=== PATIENT | female | born 1975 | race Hispanic/Latino ===

== ENCOUNTER 2017-04-26 21:08 | Emergency (ER) | payer OTHER ==
[~2017-04-26] VITALS: Ht 162.6 cm; Wt 88.5 kg
[~2017-04-26 21:08] MED LIST: AUGMENTIN 875-1 EACH PO; BENTYL20 MG PO; BUTRANS1 EAC1 TOP; CEFUROXIME500 MG; CELEXA40 MG PO; DIFLUCAN100 MG PO; DOXEPIN HCL10 MG PO; FLAGYL250 MG PO; FLAGYL500 MG PO; GABAPENTIN300 MG PO; LEVAQUIN500 MG PO; NORCO 10-325 T1 EACH; NORCO 10-325 T1 EACH PO; NORCO 10MG-325MG1 EA PO; NORCO 5-325 TA1 EACH PO; PANTOPRAZOLE SO40 MG PO; PROMETHAZINE HC25 M1 PO; REGLAN10 MG PO; TIZANIDINE HCL4 MG PO; TRAZODONE HCL50 MG PO; TYLENOL WITH C1 EAC1 PO; tizanidine
[2017-04-26] MEDS ORDERED: SODIUM CHLORIDE 0.9% 1000ML 1,000 ML IV ONE (22:00)
[2017-04-26 22:08] LABS: BASOPHILS # (AUTO) 0.1 (0.0-0.1); BASOPHILS % 0.4 % (0.0-1.0); BILIRUBIN,URINE 1+ (NEGATIVE); CLARITY,URINE CLOUDY (CLEAR); COLOR,URINE YELLOW (YELLOW); EOSINOPHILS # (AUTO) 0.3 (0.0-0.4); EOSINOPHILS % 2.6 % (0.0-6.0); HEMATOCRIT 38.5 % (34.2-44.1); KETONES,URINE NEGATIVE (NEGATIVE); LEUKOCYTE ESTERASE ,URINE 1+ (NEGATIVE); LYMPHOCYTES # (AUTO) 5.9 (1.0-3.2); MEAN CORPUSCULAR HEMOGLOBIN 29.7 pg (28-32); MEAN CORPUSCULAR HGB CONC 33.8 g/dL (31-35); MEAN CORPUSCULAR VOLUME 88.1 fL (81-99); MONOCYTES # (AUTO) 0.8 (0.2-0.8); MONOCYTES % 6.1 % (4.4-11.3); NEUTROPHILS # (AUTO) 5.4 (2.1-6.9); NEUTROPHILS % 43.4 % (38.7-80.0); NITRITE,URINE NEGATIVE (NEGATIVE); PLATELET COUNT 460 x10e3/uL (140-360); RED BLOOD COUNT 4.37 x10e6/uL (3.6-5.1); RED CELL DISTRIBUTION WIDTH 15.5 % (11.7-14.4); URINE UROBILINOGEN 8 mg/dL (0.2 - 1)
[2017-04-26 22:15] LABS: PROTEIN,URINE DIPSTICK 1+ (NEGATIVE)
[2017-04-26 22:17] LABS: BACTERIA,URINE MODERATE /HPF; EPITHELIAL CELLS,URINE MODERATE /LPF; MUCUS,URINE MANY (RARE); RBC,URINE 0-5 /HPF (0-5); WBC,URINE (MAN) 21-50 /HPF (0-5)
[2017-04-26 22:26] LABS: ANION GAP 14.9 mmol/L (8-16); BLOOD UREA NITROGEN 8 mg/dL (7-26); BUN/CREATININE RATIO 13 (6-25); CALCIUM 9.1 mg/dL (8.4-10.2); CARBON DIOXIDE 25 mmol/L (22-29); CHLORIDE 101 mmol/L (98-107); CREATININE, SERUM 0.64 mg/dL (0.57-1.11); EST GLOMERULAR FILTRATION RATE > 60 ML/MIN (60-); GLUCOSE 99 mg/dL (74-118); SODIUM 138 mmol/L (136-145)
[2017-04-26 22:29] LABS: POTASSIUM 2.9 mmol/L (3.5-5.1)
[2017-04-26] MEDS ORDERED: CEFTRIAXONE SOD 1 GM VIAL IV ONE (22:45)
[2017-04-26] MEDS ORDERED: POTASSIUM CHLORIDE 20MEQ/15ML UDC PO ONE (22:45)
[2017-04-26] MEDS ORDERED: KCL 20MEQ/.9 SOD CHL 1,000 ML IV ONE (22:45)
--- NOTE | 2017-04-26 22:48 | Diagnostic Imaging Report ---
ABDOMEN ACUTE SERIES W/PA CXR Clinical history: Abdominal pain Technique: AP view abdomen, PA chest Comparison: 12/20/2016 Findings: Abdomen: Right upper quadrant clips.. Patulous loop of bowel over the right midabdomen, but otherwise gas is seen in nondilated small and large bowel. No free air. Other: Unremarkable appearance of the heart, mediastinum, lungs and pleural spaces. Impression: Nonobstructive bowel gas pattern. Signed by: Dr Nereyda Morocho MD on 04/26/2017 10:44 PM
[2017-04-26] MEDS ORDERED: ONDANSETRON HCL INJ 2 MG/ML VIAL IV STA (23:05)
[2017-04-26] MEDS ORDERED: POTASSIUM CHLORIDE 20MEQ/15ML UDC NG ONE (23:15)
[2017-04-26] MEDS ORDERED: PROMETHAZINE HCL (IM) 25 MG/ML VIAL IM ONE (23:45)
[2017-04-27] MEDS ORDERED: DICYCLOMINE HCL 20 MG/2 ML VIAL IM ONE (00:15)
== END 2017-04-27 02:59 | disposition home or self-care (01) ==
LOC: ER 21:08
DX: R19.7 Diarrhea, unspecified (principal); R10.84 Generalized abdominal pain; E87.6 Hypokalemia; N30.90 Cystitis, unspecified without hematuria
CPT/HCPCS: 36415; 74022; 80048; 81001; 84132; 85025; 96360; 96365; 96374; 96375; 96376; 99284; J0500; J0696; J2550

== ENCOUNTER 2017-08-28 00:58 | Inpatient (IN) | payer OTHER ==
[~2017-08-28] VITALS: Ht 165.1 cm; Wt 83.9 kg
[2017-08-28] VITALS (15 sets, daily range): BP systolic 109–132; BP diastolic 70–86
[2017-08-28] MEDS ORDERED: SODIUM CHLORIDE 0.9% 1000ML 1,000 ML IV STA (01:49)
[2017-08-28] MEDS ORDERED: PROMETHAZINE 25MG/ NS 50ML (IV) IV STA (01:49)
[2017-08-28 02:13] LABS: BASOPHILS # (AUTO) 0.1 (0.0-0.1); BASOPHILS % 0.3 % (0.0-1.0); EOSINOPHILS # (AUTO) 0.3 (0.0-0.4); EOSINOPHILS % 1.6 % (0.0-6.0); HEMATOCRIT 37.8 % (34.2-44.1); HEMOGLOBIN 13.2 g/dL (12.0-16.0); LYMPHOCYTES # (AUTO) 5.9 (1.0-3.2); MEAN CORPUSCULAR HEMOGLOBIN 30.8 pg (28-32); MEAN CORPUSCULAR HGB CONC 34.9 g/dL (31-35); MEAN CORPUSCULAR VOLUME 88.1 fL (81-99); MONOCYTES # (AUTO) 0.7 (0.2-0.8); MONOCYTES % 3.8 % (4.4-11.3); NEUTROPHILS # (AUTO) 10.9 (2.1-6.9); NEUTROPHILS % 60.9 % (38.7-80.0); PLATELET COUNT 341 x10e3/uL (140-360); RED BLOOD COUNT 4.29 x10e6/uL (3.6-5.1); RED CELL DISTRIBUTION WIDTH 14.7 % (11.7-14.4)
[2017-08-28 02:59] LABS: CLARITY,URINE CLEAR (CLEAR); COLOR,URINE YELLOW (YELLOW)
[2017-08-28 03:00] LABS: BACTERIA,URINE FEW /HPF; BILIRUBIN,URINE NEGATIVE (NEGATIVE); EPITHELIAL CELLS,URINE MODERATE /LPF; KETONES,URINE NEGATIVE (NEGATIVE); LEUKOCYTE ESTERASE ,URINE NEGATIVE (NEGATIVE); NITRITE,URINE NEGATIVE (NEGATIVE); PROTEIN,URINE DIPSTICK TRACE (NEGATIVE); URINE UROBILINOGEN 1 mg/dL (0.2 - 1); WBC,URINE (MAN) 0-5 /HPF (0-5)
--- NOTE | 2017-08-28 03:24 | Diagnostic Imaging Report ---
CHEST XRAY LINE PLACEMENT, Technique: CHEST XRAY LINE PLACEMENT Comparison: 04/26/2017 Clinical history: \S\post picc line placement \[id number] \S\[id number] \S\N DISCUSSION: Right PICC placement at the cavoatrial junction. Otherwise stable appearance of the heart, mediastinum, lungs and pleural spaces. IMPRESSION: Right PICC at the cavoatrial junction. No acute thoracic abnormality. Signed by: Dr Nereyda Morocho MD on 08/28/2017 3:20 AM
[2017-08-28 03:30] LABS: ALANINE AMINOTRANSFERASE 25 IU/L (0-55); ALBUMIN 3.6 g/dL (3.5-5.0); ALBUMIN/GLOBULIN RATIO 0.8 (0.8-2.0); ALKALINE PHOSPHATASE 85 IU/L (40-150); AMYLASE 57 U/L (25-125); ANION GAP 16.8 mmol/L (8-16); BLOOD UREA NITROGEN 9 mg/dL (7-26); BUN/CREATININE RATIO 13 (6-25); CALCIUM 9.5 mg/dL (8.4-10.2); CARBON DIOXIDE 23 mmol/L (22-29); CHLORIDE 98 mmol/L (98-107); CREATININE, SERUM 0.69 mg/dL (0.57-1.11); EST GLOMERULAR FILTRATION RATE > 60 ML/MIN (60-); GLUCOSE 107 mg/dL (74-118); LIPASE 96 U/L (8-78); SODIUM 135 mmol/L (136-145)
[2017-08-28 03:31] LABS: POTASSIUM 2.8 mmol/L (3.5-5.1)
[2017-08-28] MEDS ORDERED: SODIUM CHLORIDE 0.9% 1000ML 1,000 ML IV SCH (04:24)
[2017-08-28] MEDS ORDERED: KCL 20MEQ/.9 SOD CHL 1,000 ML IV ONE (04:30)
--- NOTE | 2017-08-28 04:31 | Diagnostic Imaging Report ---
EXAM: CT ABDOMEN/PELVIS WO DATE: 08/28/2017 3:33 AM INDICATION: Abdominal pain COMPARISON: 11/05/2015 TECHNIQUE: The abdomen and pelvis were scanned using a multidetector helical scanner. Coronal and sagittal reformations were obtained. Routine protocol performed. IV Contrast: 0 ml Isovue 300/370 FINDINGS: Lack of IV contrast decreases sensitivity in evaluating abdominal and pelvic organs. LOWER THORAX: Minimal bibasilar atelectasis LIVER/BILIARY: Heterogeneous noncontrast appearance with underlying hepatic steatosis GALLBLADDER: Surgically absent. SPLEEN: Unremarkable PANCREAS: Unremarkable ADRENALS: No nodules KIDNEYS: No stones or hydronephrosis. GI TRACT: No wall thickening or evidence of obstruction. Scattered diverticula are noted. No evidence of appendicitis. VESSELS: Minimal aortic atherosclerotic calcification. PERITONEUM/RETROPERITONEUM: No free air or fluid LYMPH NODES: No lymphadenopathy REPRODUCTIVE ORGANS/BLADDER: Unremarkable BONES: No suspicious bone lesions. L4-5 disc bulge. IMPRESSION: 1. No acute abnormality on noncontrast evaluation. 2. Hepatic steatosis. Signed by: Dr Nereyda Morocho MD on 08/28/2017 4:27 AM
[2017-08-28] MEDS ORDERED: PHENYTOIN SODIUM INJ 50 MG/ML 2 ML VIAL IV STA (05:41)
[2017-08-28] MEDS ORDERED: HYDROMORPHONE 1MG/1ML INJ ONE (06:00)
[2017-08-28] MEDS ORDERED: HYDROMORPHONE 1MG/1ML INJ IV PRN (06:00)
[2017-08-28] MEDS ORDERED: FENTANYL 25 MCG/HR PATCH TOP SCH (08:00)
[2017-08-28] MEDS: HYDROMORPHONE 1MG/1ML INJ IV PRN ×5 (08:37→22:33)
[2017-08-28] MEDS: PROMETHAZINE 25MG/ NS 50ML (IV) IV PRN ×2 (08:56→18:10)
[2017-08-28] MEDS: HYDROCODONE/APAP 10MG-325MG TAB PO PRN ×2 (10:08→20:30)
[2017-08-28] MEDS ORDERED: POTASSIUM CHLORIDE 20MEQ/100ML 200 ML IV ONE (13:15)
[2017-08-28] MEDS ORDERED: POTASSIUM CHLORIDE 20 MEQ TAB CR PO ONE (13:45)
[2017-08-28] MEDS ORDERED: POTASSIUM CHLORIDE 10 MEQ TABCR PO NR (14:30)
[2017-08-28] MEDS ORDERED: SODIUM CHLORIDE 0.9% 250ML 250 ML ONE ×2 (15:58→17:26)
[2017-08-28] MEDS ORDERED: TIZANIDINE HCL 4 MG TAB PO PRN (18:00)
[2017-08-28] MEDS: METOCLOPRAMIDE HCL 10 MG TAB PO SCH ×2 (18:10→20:24)
[2017-08-28] MEDS ORDERED: ACETAMINOPHEN 325 MG TAB PO PRN (18:45)
[2017-08-28] MEDS ORDERED: HYDRALAZINE HCL 20 MG/ML VIAL IV PRN (18:45)
--- NOTE | 2017-08-28 19:07 | History and Physical ---
PRIMARY CARE PHYSICIAN: Dr. Carlos. CHIEF COMPLAINT: Abdominal pain and diarrhea. HISTORY OF PRESENT ILLNESS: This is a 42-year-old woman with a history of Crohn's disease, now developing left-sided abdominal pain for the past 2 days with nausea and diarrhea, a temperature as high as 102 on Thursday, 2 days ago; therefore, she came to the hospital. Here she is found to have leukocytosis and severe hypokalemia. She is admitted for further evaluation and management. PAST MEDICAL HISTORY: Crohn's disease, gastroparesis, GERD, obesity, esophageal candidiasis. PAST SURGICAL HISTORY: x3. ALLERGIES: PER THE ELECTRONIC MEDICAL RECORDS. FAMILY HISTORY/SOCIAL HISTORY: Patient denies any alcohol, illicit drugs or cigarettes. Lives independently. MEDICATIONS: Per the electronic medical records. Medications reviewed. REVIEW OF SYSTEMS: Denies any dizziness, chest pain, shortness of breath, leg pain, blurred vision. VITAL SIGNS: Have been reviewed. PHYSICAL EXAMINATION GENERAL APPEARANCE: A tired-appearing woman resting in bed. HEENT: Anicteric. Pupils responsive to light. No oral lesions. CARDIOVASCULAR: Normal S1/S2. No murmurs. ABDOMEN: Soft, nondistended. She has tenderness in the left abdomen. No rebound. EXTREMITIES: No edema or calf tenderness. NEUROLOGICALLY: Alert and oriented x3. Moving all extremities. SKIN: Dry. PSYCHIATRIC: Normal affect. LABS: Reviewed. ASSESSMENT: This is a 42-year-old woman. 1. Acute presumed bacterial gastroenteritis. 2. Severe hypokalemia. 3. Acute pancreatitis. 4. Hepatic steatosis. 5. Obesity. 6. Crohn's disease. 7. Chronic pain syndrome. 8. Gastroesophageal reflux disease. 9. Gastroparesis. PLAN 1. Rehydrate patient. 2. Treat with IV Flagyl and IV Levaquin for acute gastroenteritis. 3. Replace potassium and recheck. 4. Obtain labs in the morning. 5. PRN pain medications for abdominal pain. 6. Use PPI. 7. Use SCDs. 8. Rehydrate and reassess lipase levels in the morning. 9. Monitor closely. Job#: [id number] EV
[2017-08-28] MEDS: SODIUM CHLORIDE 0.9% 1000ML 1,000 ML IV SCH (19:20)
[2017-08-28] MEDS: LEVOFLOXACIN 500MG/D5W 100ML 100 ML IV SCH (19:20)
[2017-08-28] MEDS: TRAZODONE HCL 50 MG TAB PO SCH (20:24)
[2017-08-28] MEDS: GABAPENTIN 400 MG CAP PO SCH (20:24)
[2017-08-28] MEDS ORDERED: GABAPENTIN 300 MG CAP PO SCH (21:00)
[2017-08-28] MEDS: METRONIDAZOLE 500MG/NS 100ML 100 ML IV SCH (22:32)
[2017-08-29] VITALS (10 sets, daily range): BP systolic 118–138; BP diastolic 70–88
[2017-08-29] MEDS: HYDROCODONE/APAP 10MG-325MG TAB PO PRN ×4 (00:31→17:02)
[2017-08-29] MEDS: PROMETHAZINE 25MG/ NS 50ML (IV) IV PRN ×3 (02:07→19:34)
[2017-08-29] MEDS: HYDROMORPHONE 1MG/1ML INJ IV PRN ×6 (02:15→23:50)
[2017-08-29 02:56] LABS: BASOPHILS % 0.2 % (0.0-1.0); EOSINOPHILS # (AUTO) 0.3 (0.0-0.4); EOSINOPHILS % 2.3 % (0.0-6.0); HEMATOCRIT 32.5 % (34.2-44.1); HEMOGLOBIN 11.1 g/dL (12.0-16.0); LYMPHOCYTES # (AUTO) 6.3 (1.0-3.2); LYMPHOCYTES % 49.1 % (18.0-39.1); MEAN CORPUSCULAR HEMOGLOBIN 30.6 pg (28-32); MEAN CORPUSCULAR HGB CONC 34.2 g/dL (31-35); MEAN CORPUSCULAR VOLUME 89.5 fL (81-99); MONOCYTES # (AUTO) 0.6 (0.2-0.8); MONOCYTES % 4.6 % (4.4-11.3); NEUTROPHILS # (AUTO) 5.5 (2.1-6.9); NEUTROPHILS % 43.6 % (38.7-80.0); PLATELET COUNT 327 x10e3/uL (140-360); RED BLOOD COUNT 3.63 x10e6/uL (3.6-5.1); RED CELL DISTRIBUTION WIDTH 14.8 % (11.7-14.4)
[2017-08-29 03:23] LABS: ANION GAP 10.4 mmol/L (8-16); BLOOD UREA NITROGEN < 5 mg/dL (7-26); CALCIUM 8.6 mg/dL (8.4-10.2); CARBON DIOXIDE 23 mmol/L (22-29); CHLORIDE 107 mmol/L (98-107); CHOL/HDL RATIO 11.6 (3.0-3.6); CHOLESTEROL 197 MD/DL (0-199); CREATININE, SERUM 0.55 mg/dL (0.57-1.11); EST GLOMERULAR FILTRATION RATE > 60 ML/MIN (60-); GLUCOSE 89 mg/dL (74-118); HDL CHOLESTEROL 17 MG/DL (40-60); LDL CHOLESTEROL 121 MG/DL (60-130); LIPASE 95 U/L (8-78); MAGNESIUM 1.6 MG/DL (1.3-2.1); POTASSIUM 3.4 mmol/L (3.5-5.1); SODIUM 137 mmol/L (136-145); TRIGLYCERIDES 296 MG/DL (0-149)
[2017-08-29 03:28] LABS: BUN/CREATININE RATIO 9 (6-25)
[2017-08-29 03:43] LABS: FREE T4 (FREE THYROXINE) 0.93 ng/dL (0.9-1.8); THYROID STIMULATING HORMONE 3.186 uIU/mL (0.350-4.940)
[2017-08-29] MEDS: SODIUM CHLORIDE 0.9% 1000ML 1,000 ML IV SCH ×3 (04:30→23:19)
[2017-08-29] MEDS: METRONIDAZOLE 500MG/NS 100ML 100 ML IV SCH ×3 (05:39→21:06)
[2017-08-29] MEDS ORDERED: POTASSIUM CHLORIDE 20MEQ/100ML 100 ML IV ONE (08:30)
[2017-08-29] MEDS: METOCLOPRAMIDE HCL 10 MG TAB PO SCH ×4 (09:33→21:06)
[2017-08-29] MEDS: PANTOPRAZOLE SOD 40 MG TABEC PO SCH (09:33)
[2017-08-29] MEDS: GABAPENTIN 400 MG CAP PO SCH ×3 (09:33→21:06)
--- NOTE | 2017-08-29 09:43 | Diagnostic Imaging Report ---
EXAM: XR CHEST 1 VIEW DATE: 08/29/2017 8:18 AM INDICATION: Cough COMPARISON: 08/28/2017 FINDINGS: Lines and Tubes: Right PICC tip overlying distal SVC. Heart and Mediastinum: No acute cardiomediastinal findings. Lungs and Pleura: No significant pleural effusion, pneumothorax, or focal consolidation. Minimal opacities in the lung bases statistically represent atelectasis, however, infectious process could have a similar appearance. Bones and Soft Tissues: No acute findings. IMPRESSION: 1. Probable basilar atelectasis. Signed by: Dr. Angelito Ferrera MD on 08/29/2017 9:40 AM
[2017-08-29] MEDS: GUAIFENESIN 600 MG TAB PO SCH ×3 (11:47→23:15)
[2017-08-29] MEDS: GEMFIBROZIL 600 MG TAB PO SCH (16:29)
[2017-08-29] MEDS: LEVOFLOXACIN 500MG/D5W 100ML 100 ML IV SCH (17:02)
[2017-08-29] MEDS ORDERED: CRESTOR 10MG PO SCH (21:00)
[2017-08-29] MEDS: TRAZODONE HCL 50 MG TAB PO SCH (21:06)
[2017-08-30] MEDS: HYDROCODONE/APAP 10MG-325MG TAB PO PRN ×5 (03:01→21:53)
[2017-08-30 04:07] LABS: ANION GAP 9.3 mmol/L (8-16); BLOOD UREA NITROGEN < 5 mg/dL (7-26); CALCIUM 8.6 mg/dL (8.4-10.2); CARBON DIOXIDE 22 mmol/L (22-29); CHLORIDE 108 mmol/L (98-107); CREATININE, SERUM 0.56 mg/dL (0.57-1.11); EST GLOMERULAR FILTRATION RATE > 60 ML/MIN (60-); GLUCOSE 89 mg/dL (74-118); LIPASE 58 U/L (8-78); POTASSIUM 3.3 mmol/L (3.5-5.1); SODIUM 136 mmol/L (136-145)
[2017-08-30 04:09] LABS: BUN/CREATININE RATIO 9 (6-25)
[2017-08-30 04:28] LABS: BASOPHILS % 0.2 % (0.0-1.0); EOSINOPHILS # (AUTO) 0.3 (0.0-0.4); HEMATOCRIT 32.8 % (34.2-44.1); LYMPHOCYTES # (AUTO) 6.6 (1.0-3.2); LYMPHOCYTES % 44.1 % (18.0-39.1); MEAN CORPUSCULAR HEMOGLOBIN 30.2 pg (28-32); MEAN CORPUSCULAR HGB CONC 33.5 g/dL (31-35); MEAN CORPUSCULAR VOLUME 90.1 fL (81-99); MONOCYTES # (AUTO) 0.7 (0.2-0.8); MONOCYTES % 4.6 % (4.4-11.3); NEUTROPHILS # (AUTO) 7.3 (2.1-6.9); NEUTROPHILS % 48.7 % (38.7-80.0); PLATELET COUNT 323 x10e3/uL (140-360); RED BLOOD COUNT 3.64 x10e6/uL (3.6-5.1); RED CELL DISTRIBUTION WIDTH 14.7 % (11.7-14.4)
[2017-08-30 04:55] VITALS: BP 143/86
[2017-08-30] MEDS: HYDROMORPHONE 1MG/1ML INJ IV PRN ×5 (05:25→23:43)
[2017-08-30] MEDS: METRONIDAZOLE 500MG/NS 100ML 100 ML IV SCH ×3 (05:25→21:52)
[2017-08-30] MEDS: GUAIFENESIN 600 MG TAB PO SCH ×4 (05:25→23:39)
[2017-08-30 06:37] LABS: MAGNESIUM 1.3 MG/DL (1.3-2.1)
[2017-08-30 08:00] VITALS: BP_SYST 135; BP_SYST 154; BP_DIAS 69; BP_DIAS 82
[2017-08-30] MEDS: METOCLOPRAMIDE HCL 10 MG TAB PO SCH ×4 (08:28→20:10)
[2017-08-30] MEDS: GABAPENTIN 400 MG CAP PO SCH ×3 (08:28→20:10)
[2017-08-30] MEDS: GEMFIBROZIL 600 MG TAB PO SCH ×2 (08:28→17:40)
[2017-08-30] MEDS: PANTOPRAZOLE SOD 40 MG TABEC PO SCH (08:28)
[2017-08-30 08:29] VITALS: BP 135/82
[2017-08-30] MEDS ORDERED: POTASSIUM CHLORIDE 20MEQ/100ML 100 ML IV ONE (09:00)
[2017-08-30] MEDS ORDERED: MAGNESIUM SULF 1GRAM/DEXTROSE 100 ML IV ONE (09:00)
[2017-08-30] MEDS: SODIUM CHLORIDE 0.9% 1000ML 1,000 ML IV SCH ×2 (10:32→21:52)
[2017-08-30] MEDS: PROMETHAZINE 25MG/ NS 50ML (IV) IV PRN (12:00)
[2017-08-30 12:37] VITALS: BP 142/81
[2017-08-30 14:29] LABS: OCCULT BLOOD STOOL POSITIVE (NEGATIVE)
[2017-08-30 15:26] LABS: C DIFFICILE TOXIN A&B AMP PROB NEGATIVE (NEGATIVE)
[2017-08-30 17:06] VITALS: BP 142/74
[2017-08-30] MEDS: LEVOFLOXACIN 500MG/D5W 100ML 100 ML IV SCH (17:40)
[2017-08-30] MEDS: TRAZODONE HCL 50 MG TAB PO SCH (20:10)
[2017-08-30 20:30] VITALS: BP 142/94
--- NOTE | 2017-08-30 20:35 | Progress Note ---
DATE: No sound, (length 00:02). Job#: [id number] GE
--- NOTE | 2017-08-30 20:59 | Consultation ---
DATE OF CONSULTATION: August 30, 2017 GI CONSULT NOTE REFERRING PHYSICIAN: Duran Carlos MD REASON FOR CONSULT: Anemia with hem-positive stool. HISTORY OF PRESENTING ILLNESS: A 42-year-old female, who got admitted with worsening of left lower quadrant pain for last 2 days. She also carries a diagnosis of Crohn's colitis. As per patient, Crohn's colitis was diagnosed a couple of years ago by Dr. Hart. She is not on any medication for Crohn's disease. She also sees my associate Dr. Cummings in the clinic. She was told that she also has a gastroparesis. Dr. Cummings is giving her Reglan 4 times daily. She feel nauseous all the time. Reglan helps her. She denies any bloody diarrhea, abdominal cramping. For last 2 days, she was very constipated. She started having lower abdominal pain. She came to the emergency room through which she got admitted for further evaluation and recommendation, management of abdominal pain. She was given some laxative with which she has had several bouts of diarrhea. She was also started empirically on IV levofloxacin and metronidazole. Stool was tested positive for occult blood. No gross GI bleeding. She also had a CT scan of the abdomen and pelvis without contrast showed normal bowels, no bowel wall thickening. No other intra-abdominal pathology identified. She was found to have a fatty liver. REVIEW OF SYSTEMS: A 12-point system reviewed. Symptomatology is limited as per HPI. PAST MEDICAL HISTORY: GERD, gastroparesis, obesity, documented history of Crohn's disease. PAST SURGICAL HISTORY: times 3. FAMILY HISTORY: Noncontributory. Negative for any GI or FARM [employer] malignancies. No inflammatory bowel disease in the family. SOCIAL HISTORY: No alcohol, smoking or any illicit drug use. Lives independently. MEDICATIONS: Home medication Tylenol No. 3, buprenorphine, gabapentin, Reglan, pantoprazole, promethazine, tizanidine, trazodone. Inpatient medication list reviewed as per MAY. PHYSICAL EXAMINATION VITALS: Temperature 97.7, pulse 75, respirations 18, blood pressure 142/74, oxygen saturation 95% on room air. GENERAL: Not in any acute distress. HEENT: Moist mucous membrane. Anicteric sclerae. NECK: No neck or axillary adenopathy. CVS: S1, S2 regular. LUNGS: Bilaterally grossly clear. ABDOMEN: Soft, diffusely tender on mild palpation without rebound, rigidity or guarding. Positive bowel sounds. EXTREMITIES: Warm. No leg edema. LAB: WBC has come down to 14.90 from 17.96, hemoglobin 11, hematocrit 32.8, MCV 90, platelet count 323,000. Sodium 136, potassium 3.3, chloride 108, bicarb 22, BUN 5, creatinine 0.56. Liver enzymes normal. Lipase level normal. CT of the abdomen and pelvis without contrast showed no acute intra-abdominal pathology, normal bowels. No bowel wall thickening. IMPRESSIONS 1. Nonspecific abdominal pain. Abdominal examination is quite disproportionate to the patient's complaints. Computed tomography of abdomen and pelvis showing no intra-abdominal pathology. I do not suspect patient has any Crohn's disease. 2. Leukocytosis, cause unclear, empirically being treated with antibiotics. 3. Patient is displaying opioid-seeking behavior. PLAN: Supportive care. Reassurance. Stool was tested hem-positive, which I would expect, this holds no significance at this time. Hemoglobin dropped a little bit, but this is not due to any GI blood loss. This is dilutional secondary to IV fluid hydration. Will check CRP and sed rate tomorrow. Continue oral diet. From GI standpoint, patient can be discharged home tomorrow if there are no further changes in clinical condition. I thank Dr. Carlos for allowing me to participate in the care of this patient. Job#: [id number] CQ
[2017-08-31] VITALS (11 sets, daily range): BP systolic 127–142; BP diastolic 71–81
[2017-08-31] MEDS: HYDROCODONE/APAP 10MG-325MG TAB PO PRN ×3 (02:05→22:36)
[2017-08-31 03:51] LABS: BASOPHILS # (AUTO) 0.1 (0.0-0.1); BASOPHILS % 0.4 % (0.0-1.0); EOSINOPHILS # (AUTO) 0.3 (0.0-0.4); EOSINOPHILS % 2.6 % (0.0-6.0); HEMATOCRIT 31.9 % (34.2-44.1); HEMOGLOBIN 10.8 g/dL (12.0-16.0); LYMPHOCYTES # (AUTO) 6.1 (1.0-3.2); LYMPHOCYTES % 50.9 % (18.0-39.1); MEAN CORPUSCULAR HEMOGLOBIN 30.6 pg (28-32); MEAN CORPUSCULAR HGB CONC 33.9 g/dL (31-35); MEAN CORPUSCULAR VOLUME 90.4 fL (81-99); MONOCYTES # (AUTO) 0.7 (0.2-0.8); NEUTROPHILS # (AUTO) 4.7 (2.1-6.9); NEUTROPHILS % 39.4 % (38.7-80.0); PLATELET COUNT 326 x10e3/uL (140-360); RED BLOOD COUNT 3.53 x10e6/uL (3.6-5.1); RED CELL DISTRIBUTION WIDTH 14.8 % (11.7-14.4)
[2017-08-31] MEDS: HYDROMORPHONE 1MG/1ML INJ IV PRN ×4 (04:00→18:38)
[2017-08-31 04:07] LABS: ANION GAP 10.7 mmol/L (8-16); BLOOD UREA NITROGEN < 5 mg/dL (7-26); CALCIUM 8.7 mg/dL (8.4-10.2); CARBON DIOXIDE 24 mmol/L (22-29); CHLORIDE 108 mmol/L (98-107); CREATININE, SERUM 0.61 mg/dL (0.57-1.11); EST GLOMERULAR FILTRATION RATE > 60 ML/MIN (60-); GLUCOSE 95 mg/dL (74-118); MAGNESIUM 1.5 MG/DL (1.3-2.1); POTASSIUM 3.7 mmol/L (3.5-5.1); SODIUM 139 mmol/L (136-145)
[2017-08-31 04:08] LABS: BUN/CREATININE RATIO 8 (6-25)
[2017-08-31] MEDS: GUAIFENESIN 600 MG TAB PO SCH ×3 (05:41→17:24)
[2017-08-31] MEDS: METRONIDAZOLE 500MG/NS 100ML 100 ML IV SCH ×3 (05:41→22:03)
[2017-08-31] MEDS: SODIUM CHLORIDE 0.9% 1000ML 1,000 ML IV SCH (06:30)
[2017-08-31] MEDS: PANTOPRAZOLE SOD 40 MG TABEC PO SCH (07:55)
[2017-08-31] MEDS: METOCLOPRAMIDE HCL 10 MG TAB PO SCH ×4 (07:55→21:58)
[2017-08-31] MEDS: GEMFIBROZIL 600 MG TAB PO SCH ×2 (07:55→16:03)
[2017-08-31] MEDS: GABAPENTIN 400 MG CAP PO SCH ×3 (07:55→21:57)
[2017-08-31] MEDS: PROMETHAZINE 25MG/ NS 50ML (IV) IV PRN (08:31)
[2017-08-31] MEDS: LEVOFLOXACIN 500MG/D5W 100ML 100 ML IV SCH (17:40)
[2017-08-31] MEDS: TRAZODONE HCL 50 MG TAB PO SCH (21:58)
[2017-09-01] MEDS: GUAIFENESIN 600 MG TAB PO SCH ×2 (00:58→05:10)
[2017-09-01] MEDS: HYDROMORPHONE 1MG/1ML INJ IV PRN ×3 (01:01→09:20)
[2017-09-01 01:05] VITALS: BP 154/85
[2017-09-01 03:14] LABS: BASOPHILS % 0.3 % (0.0-1.0); EOSINOPHILS # (AUTO) 0.4 (0.0-0.4); HEMATOCRIT 33.4 % (34.2-44.1); HEMOGLOBIN 11.3 g/dL (12.0-16.0); LYMPHOCYTES # (AUTO) 6.5 (1.0-3.2); LYMPHOCYTES % 49.1 % (18.0-39.1); MEAN CORPUSCULAR HEMOGLOBIN 30.1 pg (28-32); MEAN CORPUSCULAR HGB CONC 33.8 g/dL (31-35); MEAN CORPUSCULAR VOLUME 88.8 fL (81-99); MONOCYTES # (AUTO) 0.8 (0.2-0.8); MONOCYTES % 5.8 % (4.4-11.3); NEUTROPHILS # (AUTO) 5.5 (2.1-6.9); NEUTROPHILS % 41.3 % (38.7-80.0); PLATELET COUNT 324 x10e3/uL (140-360); RED BLOOD COUNT 3.76 x10e6/uL (3.6-5.1); RED CELL DISTRIBUTION WIDTH 14.6 % (11.7-14.4)
[2017-09-01 03:41] LABS: ANION GAP 13.6 mmol/L (8-16); BLOOD UREA NITROGEN < 5 mg/dL (7-26); CALCIUM 9.1 mg/dL (8.4-10.2); CARBON DIOXIDE 22 mmol/L (22-29); CHLORIDE 107 mmol/L (98-107); CREATININE, SERUM 0.63 mg/dL (0.57-1.11); EST GLOMERULAR FILTRATION RATE > 60 ML/MIN (60-); GLUCOSE 104 mg/dL (74-118); LIPASE 96 U/L (8-78); MAGNESIUM 1.5 MG/DL (1.3-2.1); POTASSIUM 3.6 mmol/L (3.5-5.1); SODIUM 139 mmol/L (136-145)
[2017-09-01 03:42] LABS: BUN/CREATININE RATIO 8 (6-25)
[2017-09-01 05:06] VITALS: BP 132/86
[2017-09-01] MEDS: METRONIDAZOLE 500MG/NS 100ML 100 ML IV SCH (05:10)
[2017-09-01 05:47] LABS: ANISOCYTOSIS SLIGHT; EOSINOPHILS % (MANUAL) 4 % (0-7); LYMPHOCYTES % (MANUAL) 50 % (19-48); MONOCYTES % (MANUAL) 3 % (3.4-9.0); NEUTROPHILS % (MANUAL) 43 % (40-74); PLATELET ESTIMATE ADEQUATE; PLATELET MORPHOLOGY COMMENT NORMAL; RBC MORPHOLOGY COMMENT NORMAL
[2017-09-01] MEDS: METOCLOPRAMIDE HCL 10 MG TAB PO SCH ×2 (07:30→09:42)
[2017-09-01] MEDS: PANTOPRAZOLE SOD 40 MG TABEC PO SCH (07:30)
[2017-09-01] MEDS: GEMFIBROZIL 600 MG TAB PO SCH (07:30)
[2017-09-01 07:53] VITALS: BP 143/72
[2017-09-01] MEDS ORDERED: GEMFIBROZIL600 MG PO (07:57)
[2017-09-01] MEDS ORDERED: LEVAQUIN500 MG PO (07:57)
[2017-09-01] MEDS ORDERED: PROMETHAZINE HC25 M1 PO (07:57)
[2017-09-01] MEDS ORDERED: FLUCONAZOLE100 MG PO (07:57)
[2017-09-01] MEDS ORDERED: METRONIDAZOLE500 MG PO (07:59)
[2017-09-01 08:00] VITALS: BP 143/72
[2017-09-01] MEDS ORDERED: FLUCONAZOLE 200 MG/100 ML 100 ML IV ONE (08:00)
[2017-09-01] MEDS: GABAPENTIN 400 MG CAP PO SCH (08:30)
[2017-09-01] MEDS: PROMETHAZINE 25MG/ NS 50ML (IV) IV PRN ×2 (09:20→09:24)
[2017-09-01] MEDS: HYDROCODONE/APAP 10MG-325MG TAB PO PRN (09:21)
--- NOTE | 2017-09-01 16:44 | Discharge Summary ---
ADMISSION DIAGNOSES 1. Acute bacterial gastroenteritis. 2. Severe hypokalemia. 3. Acute pancreatitis. 4. Hepatic steatosis. 5. Obesity. 6. Crohn's. 7. Chronic pain. 8. Gastroesophageal reflux disease. 9. Gastroparesis. DISCHARGE DIAGNOSES 1. Acute bacterial gastroenteritis. 2. Severe hypokalemia. 3. Acute pancreatitis. 4. Hepatic steatosis. 5. Obesity. 6. Crohn's. 7. Chronic pain. 8. Gastroesophageal reflux disease. 9. Gastroparesis. 10. Gastrointestinal bleed. 11. Anemia, rule out Clostridium difficile. HISTORY: Patient has a history of Crohn's, gastroparesis, GERD, obesity, esophageal candidiasis. HOSPITAL COURSE: The 42-year-old female developed left-sided abdominal pain for the last 2 days with nausea and diarrhea as well as a temperature as high as 102 on Thursday. Upon arrival to the ER she was found to have leukocytosis and severe hypokalemia. On admission patient was started on Flagyl and Levaquin for gastroenteritis as well as replacing her potassium. GI was consulted once patient had a stool positive for blood. Per GI no reason to scope as the hemoglobin is stable. On admission CT of the abdomen showed no acute abnormality, hepatic steatosis. Chest x-ray showed probable atelectasis. After a few days of IV antibiotics the potassium has normalized on its own and the patient is no longer having diarrhea and her nausea is controlled. She will discharge home today. WBC on day of discharge 13.2, hemoglobin 11.3, hematocrit 33.4. Sodium 139, potassium 3.6, creatinine 0.63, GFR of over 60. Vital signs stable. Patient afebrile. She discharged home with fluconazole for candidiasis of the mouth, gemfibrozil, Levaquin and Flagyl. She will continue all other home medications. Patient understands discharge instructions and will follow up with primary care in 1 to 2 weeks. Dictated by: Randa Tee NP SOHAIL ENGLISH MD Job#: [id number] DG
== END 2017-09-01 10:23 | disposition home or self-care (01) | DRG 391 ==
LOC: ER 00:58 → ERHOLD 04:24 → IMCU 07:35 → OBSVTOIN 08-31 08:20 → MED/SURG2 08-31 18:42
PROVIDERS: ADMIT Internal Medicine; ATTEND Internal Medicine
PROC: 02HV33Z Insertion of Infusion Device into Superior Vena Cava, Percutaneous Approach (ICD-10-PCS; principal; 2017-08-28)
DX: A09 Infectious gastroenteritis and colitis, unspecified (principal); K85.90 Acute pancreatitis without necrosis or infection, unspecified; K50.90 Crohn's disease, unspecified, without complications; B37.0 Candidal stomatitis; E87.6 Hypokalemia; N28.89 Other specified disorders of kidney and ureter; E66.9 Obesity, unspecified; G89.4 Chronic pain syndrome; K21.9 Gastro-esophageal reflux disease without esophagitis; K31.84 Gastroparesis; Z76.5 Malingerer [conscious simulation]; D64.9 Anemia, unspecified; Z68.30 Body mass index [BMI] 30.0-30.9, adult; K76.0 Fatty (change of) liver, not elsewhere classified; E78.1 Pure hyperglyceridemia; E83.42 Hypomagnesemia
CPT/HCPCS: 36415; 36569; 71045; 74176; 80048; 80053; 80061; 81001; 82150; 82270; 83036; 83690; 83735; 83880; 84132; 84439; 84443; 85025; 85651; 86140; 87493; 99284; G0378; J1170; J1450; J1956; J2550; J3475; J3480; J7030; J7050

== ENCOUNTER 2017-12-14 18:06 | Inpatient (IN) | payer OTHER ==
[~2017-12-14] VITALS: Ht 165.1 cm; Wt 79.0 kg
[~2017-12-14 18:06] MED LIST changes: +FLUCONAZOLE100 MG PO; +GEMFIBROZIL600 MG PO; +METRONIDAZOLE500 MG PO
[2017-12-14] MEDS ORDERED: FAMOTIDINE 20 MG/2 ML VIAL IV STA (18:19)
[2017-12-14] MEDS ORDERED: ACETAMINOPHEN 1000 MG/100 ML IV STA (18:19)
[2017-12-14] MEDS ORDERED: SODIUM CHLORIDE 0.9% 1000ML 2,000 ML IV ONE (18:30)
[2017-12-14] MEDS ORDERED: DICYCLOMINE HCL 20 MG/2 ML VIAL IM ONE (18:30)
[2017-12-14] MEDS ORDERED: METOCLOPRAMIDE HCL 10 MG/2ML VIAL IV ONE (18:30)
[2017-12-14 19:20] LABS: CLARITY,URINE SL CLOUDY (CLEAR); COLOR,URINE YELLOW (YELLOW)
[2017-12-14 19:21] LABS: BILIRUBIN,URINE 1+ (NEGATIVE); KETONES,URINE 1+ (NEGATIVE); LEUKOCYTE ESTERASE ,URINE NEGATIVE (NEGATIVE); NITRITE,URINE NEGATIVE (NEGATIVE); PROTEIN,URINE DIPSTICK 1+ (NEGATIVE); URINE UROBILINOGEN 1 mg/dL (0.2 - 1)
[2017-12-14 19:40] LABS: BACTERIA,URINE MANY /HPF; EPITHELIAL CELLS,URINE MANY /LPF; HYALINE CASTS 0-1 (0-1); MUCUS,URINE MODERATE (RARE); RBC,URINE 0-5 /HPF (0-5); TRANSITIONAL EPI CELLS,URINE MODERATE; WBC,URINE (MAN) 0-5 /HPF (0-5)
[2017-12-14 20:31] LABS: BASOPHILS # (AUTO) 0.1 (0.0-0.1); BASOPHILS % 0.3 % (0.0-1.0); EOSINOPHILS # (AUTO) 0.1 (0.0-0.4); EOSINOPHILS % 0.6 % (0.0-6.0); HEMATOCRIT 45.2 % (34.2-44.1); HEMOGLOBIN 15.3 g/dL (12.0-16.0); LYMPHOCYTES # (AUTO) 5.1 (1.0-3.2); LYMPHOCYTES % 28.7 % (18.0-39.1); MEAN CORPUSCULAR HEMOGLOBIN 30.7 pg (28-32); MEAN CORPUSCULAR HGB CONC 33.8 g/dL (31-35); MEAN CORPUSCULAR VOLUME 90.8 fL (81-99); MONOCYTES # (AUTO) 0.8 (0.2-0.8); MONOCYTES % 4.2 % (4.4-11.3); NEUTROPHILS # (AUTO) 11.7 (2.1-6.9); NEUTROPHILS % 65.7 % (38.7-80.0); PLATELET COUNT 467 x10e3/uL (140-360); RED BLOOD COUNT 4.98 x10e6/uL (3.6-5.1); RED CELL DISTRIBUTION WIDTH 15.6 % (11.7-14.4)
[2017-12-14] MEDS ORDERED: HYDROMORPHONE 1MG/1ML INJ IV STA (20:50)
[2017-12-14] MEDS ORDERED: PROMETHAZINE 25MG/ NS 50ML (IV) IV ONE (21:00)
[2017-12-14] MEDS ORDERED: PROMETHAZINE 25MG/ NS 50ML (IV) IV PRN (21:00)
[2017-12-14] MEDS ORDERED: HYDROMORPHONE 1MG/1ML INJ IV PRN (21:00)
--- NOTE | 2017-12-14 21:08 | Diagnostic Imaging Report ---
ADDENDUM #1 EXAM: CT of the abdomen and pelvis WITHOUT contrast HISTORY: Left upper quadrant pain, nausea and vomiting, dysuria, reported history of gastric ulcer, colitis, Crohn's, contrast allergy COMPARISON: CT of the abdomen pelvis October 28, 2017 and October 01, 2012 TECHNIQUE: The abdomen and pelvis were scanned utilizing a multidetector helical scanner. Coronal and sagittal reformats are available. PROTOCOL: Routine IV CONTRAST: None, which limits sensitivity and specificity of evaluation of the soft tissues and vascular structures. ORAL CONTRAST: None, which limits sensitivity and specificity of evaluation of the bowel. RADIATION DOSE: Total DLP: 433.27 mGy*cm Estimated effective dose: (DLP x 0.015 x size factor) Dose modulation, iterative reconstruction, and/or weight based adjustment of the mA/kV was utilized to reduce the radiation dose to as low as reasonably achievable. COMPLICATIONS: None FINDINGS: LOWER THORAX: Minimal bibasilar atelectasis LIVER/BILIARY: Persistent heterogeneous noncontrast appearance of the liver appears more prominent compared to October 2017, but this may be due to differences in scanning technique. No intrahepatic biliary dilation. GALLBLADDER: Surgically absent. SPLEEN: Unremarkable PANCREAS: Unremarkable ADRENALS: No nodules KIDNEYS: No stones or hydronephrosis. GI TRACT: No wall thickening or evidence of obstruction. Moderate colonic fecal burden, most notably the transverse colon. No inflammatory changes about the cecum. Radiopaque contrast within the stomach, small bowel, and proximal cecum. VESSELS: Minimal aortic atherosclerotic calcification. PERITONEUM/RETROPERITONEUM: No free air or fluid LYMPH NODES: No lymphadenopathy REPRODUCTIVE ORGANS/BLADDER: Unremarkable BONES: No suspicious bone lesions. L4-5 disc bulge. Stable small nonaggressive sclerotic density within the left iliac bone, this may be secondary to a small intraosseous hemangioma. Soft tissues: Small amount of air within the superficial soft tissues overlying the right flank, correlate for recent injection or trauma. IMPRESSION: 1. No acute abnormality on noncontrast evaluation. 2. Heterogeneous hepatic steatosis. A follow-up nonemergent MRI of the abdomen with and without contrast may be helpful for further evaluation of hepatic parenchymal disease. Signed by: Dr. Andreas Solares D.O., M.M.M. on 12/21/2017 3:09 PM ORIGINAL REPORT EXAM: CT of the abdomen and pelvis WITHOUT contrast HISTORY: Left upper quadrant pain, nausea and vomiting, dysuria, reported history of gastric ulcer, colitis, Crohn's, contrast allergy COMPARISON: CT of the abdomen pelvis October 28, 2017 and October 01, 2012 TECHNIQUE: The abdomen and pelvis were scanned utilizing a multidetector helical scanner. Coronal and sagittal reformats are available. PROTOCOL: Routine IV CONTRAST: None, which limits sensitivity and specificity of evaluation of the soft tissues and vascular structures. ORAL CONTRAST: None, which limits sensitivity and specificity of evaluation of the bowel. RADIATION DOSE: Total DLP: 433.27 mGy*cm Estimated effective dose: (DLP x 0.015 x size factor) COMPLICATIONS: None FINDINGS: LOWER THORAX: Minimal bibasilar atelectasis LIVER/BILIARY: Persistent heterogeneous noncontrast appearance of the liver appears more prominent compared to October 2017, but this may be due to differences in scanning technique. No intrahepatic biliary dilation. GALLBLADDER: Surgically absent. SPLEEN: Unremarkable PANCREAS: Unremarkable ADRENALS: No nodules KIDNEYS: No stones or hydronephrosis. GI TRACT: No wall thickening or evidence of obstruction. Moderate colonic fecal burden, most notably the transverse colon. No inflammatory changes about the cecum. Radiopaque contrast within the stomach, small bowel, and proximal cecum. VESSELS: Minimal aortic atherosclerotic calcification. PERITONEUM/RETROPERITONEUM: No free air or fluid LYMPH NODES: No lymphadenopathy REPRODUCTIVE ORGANS/BLADDER: Unremarkable BONES: No suspicious bone lesions. L4-5 disc bulge. Stable small nonaggressive sclerotic density within the left iliac bone, this may be secondary to a small intraosseous hemangioma. Soft tissues: Small amount of air within the superficial soft tissues overlying the right flank, correlate for recent injection or trauma. IMPRESSION: 1. No acute abnormality on noncontrast evaluation. 2. Heterogeneous hepatic steatosis. A follow-up nonemergent MRI of the abdomen with and without contrast may be helpful for further evaluation of hepatic parenchymal disease. Signed by: Dr. Andreas Solares D.O., M.M.M. on 12/14/2017 9:05 PM
[2017-12-14] MEDS ORDERED: HYDROMORPHONE 2MG/ML 2 MG/ML ML IV NR (21:15)
[2017-12-14 21:19] LABS: EOSINOPHILS % (MANUAL) 1 % (0-7); LYMPHOCYTES % (MANUAL) 22 % (19-48); MONOCYTES % (MANUAL) 2 % (3.4-9.0); NEUTROPHILS % (MANUAL) 70 % (40-74); PLATELET ESTIMATE SLIGHTLY INCREASED; PLATELET MORPHOLOGY COMMENT NORMAL; RBC MORPHOLOGY COMMENT NORMAL
[2017-12-14 21:26] LABS: ALANINE AMINOTRANSFERASE 16 IU/L (0-55); ALBUMIN 3.3 g/dL (3.5-5.0); ALBUMIN/GLOBULIN RATIO 0.9 (0.8-2.0); ALKALINE PHOSPHATASE 81 IU/L (40-150); ANION GAP 9.3 mmol/L (8-16); BLOOD UREA NITROGEN 6 mg/dL (7-26); BUN/CREATININE RATIO 10 (6-25); CALCIUM 10.3 mg/dL (8.4-10.2); CARBON DIOXIDE 29 mmol/L (22-29); CHLORIDE 101 mmol/L (98-107); CREATININE, SERUM 0.59 mg/dL (0.57-1.11); EST GLOMERULAR FILTRATION RATE > 60 ML/MIN (60-); GLUCOSE 80 mg/dL (74-118); LIPASE 125 U/L (8-78); POTASSIUM 3.3 mmol/L (3.5-5.1); SODIUM 136 mmol/L (136-145)
[2017-12-14] MEDS: METRONIDAZOLE 500MG/NS 100ML 100 ML IV SCH (22:09)
[2017-12-14] MEDS: METHYLPREDNISOLONE SOD SUCC 125 MG/2ML VIAL IV SCH (22:09)
[2017-12-14] MEDS ORDERED: KCL 20MEQ/.9 SOD CHL 1,000 ML IV ONE (22:30)
[2017-12-14] MEDS: PIPER-TAZ 3.375 GM 50 ML IV SCH (23:25)
[2017-12-15] VITALS (7 sets, daily range): BP systolic 113–129; BP diastolic 73–87
[2017-12-15] MEDS ORDERED: KCL 20MEQ/.9 SOD CHL 1,000 ML IV ONE (02:11)
[2017-12-15] MEDS: HYDROMORPHONE 2MG/ML 2 MG/ML ML IV PRN ×6 (02:15→23:51)
[2017-12-15] MEDS: PROMETHAZINE 12.5MG/ NACL 0.9% 50 ML IV PRN ×6 (02:15→23:51)
[2017-12-15] MEDS: METRONIDAZOLE 500MG/NS 100ML 100 ML IV SCH ×4 (03:00→21:46)
[2017-12-15] MEDS: PIPER-TAZ 3.375 GM 50 ML IV SCH ×4 (03:00→21:00)
[2017-12-15 06:13] LABS: BASOPHILS % 0.1 % (0.0-1.0); EOSINOPHILS % 0.1 % (0.0-6.0); HEMATOCRIT 36.8 % (34.2-44.1); HEMOGLOBIN 12.6 g/dL (12.0-16.0); LYMPHOCYTES # (AUTO) 2.1 (1.0-3.2); LYMPHOCYTES % 16.9 % (18.0-39.1); MEAN CORPUSCULAR HEMOGLOBIN 30.7 pg (28-32); MEAN CORPUSCULAR HGB CONC 34.2 g/dL (31-35); MEAN CORPUSCULAR VOLUME 89.8 fL (81-99); MONOCYTES # (AUTO) 0.1 (0.2-0.8); MONOCYTES % 0.4 % (4.4-11.3); NEUTROPHILS # (AUTO) 10.1 (2.1-6.9); NEUTROPHILS % 81.9 % (38.7-80.0); PLATELET COUNT 424 x10e3/uL (140-360)
[2017-12-15 06:39] LABS: ALANINE AMINOTRANSFERASE 15 IU/L (0-55); ALBUMIN 3.1 g/dL (3.5-5.0); ALBUMIN/GLOBULIN RATIO 0.8 (0.8-2.0); ALKALINE PHOSPHATASE 74 IU/L (40-150); BLOOD UREA NITROGEN 6 mg/dL (7-26); BUN/CREATININE RATIO 10 (6-25); CHLORIDE 102 mmol/L (98-107); CREATININE, SERUM 0.59 mg/dL (0.57-1.11); EST GLOMERULAR FILTRATION RATE > 60 ML/MIN (60-); GLUCOSE 124 mg/dL (74-118); LIPASE 128 U/L (8-78); POTASSIUM 3.2 mmol/L (3.5-5.1); SODIUM 134 mmol/L (136-145)
[2017-12-15] MEDS ORDERED: POTASSIUM CHLORIDE 20MEQ/100ML 200 ML IV ONE (07:30)
[2017-12-15] MEDS ORDERED: TIZANIDINE HCL 4 MG TAB PO PRN (07:45)
[2017-12-15 08:23] LABS: CARBON DIOXIDE 15 mmol/L (22-29)
[2017-12-15 08:25] LABS: ANION GAP 20.2 mmol/L (8-16); CALCIUM 8.1 mg/dL (8.4-10.2)
[2017-12-15] MEDS: METHYLPREDNISOLONE SOD SUCC 125 MG/2ML VIAL IV SCH ×2 (08:35→21:00)
[2017-12-15] MEDS ORDERED: GABAPENTIN 300 MG CAP PO SCH (09:00)
[2017-12-15] MEDS: GABAPENTIN 400 MG CAP PO SCH ×3 (09:00→21:00)
[2017-12-15 09:09] LABS: MAGNESIUM 1.5 MG/DL (1.3-2.1)
[2017-12-15] MEDS: FENTANYL 25 MCG/HR PATCH TOP SCH (09:44)
[2017-12-15] MEDS: PANTOPRAZOLE 40 MG 10ML VIAL IV SCH (09:44)
[2017-12-15] MEDS: METOCLOPRAMIDE HCL 10 MG/2ML VIAL IV SCH ×3 (12:00→23:51)
[2017-12-15] MEDS ORDERED: SODIUM CHLORIDE 0.9% 250ML 250 ML ONE (14:59)
[2017-12-15] MEDS: GEMFIBROZIL 600 MG TAB PO SCH (16:00)
[2017-12-15] MEDS ORDERED: POTASSIUM CHLORIDE 20 MEQ TAB CR PO ONE (17:10)
[2017-12-15] MEDS: KCL 20MEQ/.9 SOD CHL 1,000 ML IV SCH (19:32)
[2017-12-15] MEDS: TRAZODONE HCL 50 MG TAB PO SCH (21:00)
[2017-12-15] MEDS: ACETAMINOPHEN 325 MG TAB PO PRN (21:00)
[2017-12-16] VITALS (7 sets, daily range): BP systolic 129–173; BP diastolic 68–92
[2017-12-16] MEDS: METRONIDAZOLE 500MG/NS 100ML 100 ML IV SCH ×4 (02:28→21:24)
[2017-12-16] MEDS: KCL 20MEQ/.9 SOD CHL 1,000 ML IV SCH ×3 (02:28→14:49)
[2017-12-16] MEDS: PIPER-TAZ 3.375 GM 50 ML IV SCH ×4 (03:30→22:33)
[2017-12-16] MEDS: HYDROMORPHONE 2MG/ML 2 MG/ML ML IV PRN ×5 (03:53→20:18)
[2017-12-16] MEDS: PROMETHAZINE 12.5MG/ NACL 0.9% 50 ML IV PRN ×5 (03:53→20:18)
[2017-12-16 04:35] LABS: BASOPHILS % 0.1 % (0.0-1.0); HEMATOCRIT 34.4 % (34.2-44.1); HEMOGLOBIN 11.7 g/dL (12.0-16.0); LYMPHOCYTES # (AUTO) 2.9 (1.0-3.2); LYMPHOCYTES % 16.1 % (18.0-39.1); MEAN CORPUSCULAR HEMOGLOBIN 30.5 pg (28-32); MEAN CORPUSCULAR VOLUME 89.8 fL (81-99); MONOCYTES # (AUTO) 0.6 (0.2-0.8); MONOCYTES % 3.1 % (4.4-11.3); NEUTROPHILS # (AUTO) 14.6 (2.1-6.9); PLATELET COUNT 417 x10e3/uL (140-360); RED BLOOD COUNT 3.83 x10e6/uL (3.6-5.1); RED CELL DISTRIBUTION WIDTH 15.3 % (11.7-14.4)
[2017-12-16 05:04] LABS: ANION GAP 14.8 mmol/L (8-16); BLOOD UREA NITROGEN 6 mg/dL (7-26); BUN/CREATININE RATIO 10 (6-25); CALCIUM 8.6 mg/dL (8.4-10.2); CARBON DIOXIDE 18 mmol/L (22-29); CHLORIDE 104 mmol/L (98-107); CREATININE, SERUM 0.59 mg/dL (0.57-1.11); EST GLOMERULAR FILTRATION RATE > 60 ML/MIN (60-); GLUCOSE 104 mg/dL (74-118); LIPASE 140 U/L (8-78); MAGNESIUM 1.5 MG/DL (1.3-2.1); POTASSIUM 3.8 mmol/L (3.5-5.1); SODIUM 133 mmol/L (136-145)
[2017-12-16] MEDS: METOCLOPRAMIDE HCL 10 MG/2ML VIAL IV SCH ×3 (05:39→18:03)
[2017-12-16] MEDS: GEMFIBROZIL 600 MG TAB PO SCH ×2 (08:10→16:28)
[2017-12-16] MEDS: GABAPENTIN 400 MG CAP PO SCH ×3 (09:17→21:24)
[2017-12-16] MEDS: PANTOPRAZOLE 40 MG 10ML VIAL IV SCH (09:17)
[2017-12-16] MEDS: METHYLPREDNISOLONE SOD SUCC 125 MG/2ML VIAL IV SCH ×2 (09:17→21:24)
--- NOTE | 2017-12-16 11:37 | Diagnostic Imaging Report ---
PROCEDURE: CHEST SINGLE (PORTABLE) COMPARISON: [facility], DX, CHEST SINGLE (PORTABLE), 08/29/2017, 9:08. INDICATIONS: PNEUMONIA FINDINGS: LUNGS: No consolidations or edema. PLEURA: No effusions or pneumothorax. HEART \T\ MEDIASTINUM: The heart is within normal size-limits. The right-sided PICC line previously present has been removed. BONES \T\ SOFT TISSUES: No acute findings. Small metallic density overlying the right lung base is likely external to the patient. CONCLUSION: No acute thoracic abnormality. Dimas Lance D.O. Dictated by: Dimas Lance D.O. on 12/16/2017 at 11:45 Electronically approved by: Dimas Lance D.O. on 12/16/2017 at 11:45
[2017-12-16] MEDS: TRAZODONE HCL 50 MG TAB PO SCH (21:24)
[2017-12-16] MEDS: HYDRALAZINE HCL 20 MG/ML VIAL IV PRN (22:01)
[2017-12-17] VITALS (9 sets, daily range): BP systolic 140–170; BP diastolic 79–86
[2017-12-17] MEDS: METOCLOPRAMIDE HCL 10 MG/2ML VIAL IV SCH ×4 (00:06→18:02)
[2017-12-17] MEDS: PROMETHAZINE 12.5MG/ NACL 0.9% 50 ML IV PRN ×6 (00:07→20:50)
[2017-12-17] MEDS: HYDROMORPHONE 2MG/ML 2 MG/ML ML IV PRN ×6 (00:07→20:50)
[2017-12-17] MEDS: KCL 20MEQ/.9 SOD CHL 1,000 ML IV SCH ×2 (00:43→10:00)
[2017-12-17] MEDS: METRONIDAZOLE 500MG/NS 100ML 100 ML IV SCH ×4 (03:39→21:54)
[2017-12-17] MEDS: PIPER-TAZ 3.375 GM 50 ML IV SCH ×4 (04:40→21:26)
[2017-12-17 05:53] LABS: BASOPHILS % 0.3 % (0.0-1.0); HEMOGLOBIN 12.3 g/dL (12.0-16.0); LYMPHOCYTES # (AUTO) 2.1 (1.0-3.2); LYMPHOCYTES % 14.2 % (18.0-39.1); MEAN CORPUSCULAR HGB CONC 32.4 g/dL (31-35); MEAN CORPUSCULAR VOLUME 95.7 fL (81-99); MONOCYTES # (AUTO) 0.5 (0.2-0.8); MONOCYTES % 3.6 % (4.4-11.3); NEUTROPHILS # (AUTO) 11.5 (2.1-6.9); NEUTROPHILS % 79.9 % (38.7-80.0); PLATELET COUNT 381 x10e3/uL (140-360); RED BLOOD COUNT 3.97 x10e6/uL (3.6-5.1); RED CELL DISTRIBUTION WIDTH 15.8 % (11.7-14.4)
[2017-12-17 06:19] LABS: ANION GAP 17.7 mmol/L (8-16); BLOOD UREA NITROGEN 6 mg/dL (7-26); BUN/CREATININE RATIO 11 (6-25); CALCIUM 8.9 mg/dL (8.4-10.2); CARBON DIOXIDE 18 mmol/L (22-29); CHLORIDE 101 mmol/L (98-107); CREATININE, SERUM 0.57 mg/dL (0.57-1.11); EST GLOMERULAR FILTRATION RATE > 60 ML/MIN (60-); GLUCOSE 96 mg/dL (74-118); LIPASE 168 U/L (8-78); MAGNESIUM 1.6 MG/DL (1.3-2.1); POTASSIUM 3.7 mmol/L (3.5-5.1); SODIUM 133 mmol/L (136-145)
[2017-12-17 06:44] LABS: FERRITIN 79.87 ng/mL (4.63-204.00)
[2017-12-17 07:18] LABS: FOLATE 10.1 ng/mL (7.0-15.4)
[2017-12-17] MEDS: GEMFIBROZIL 600 MG TAB PO SCH ×2 (07:30→16:44)
[2017-12-17] MEDS: PANTOPRAZOLE 40 MG 10ML VIAL IV SCH (09:36)
[2017-12-17] MEDS: GABAPENTIN 400 MG CAP PO SCH ×3 (09:36→20:50)
[2017-12-17] MEDS: METHYLPREDNISOLONE SOD SUCC 125 MG/2ML VIAL IV SCH ×2 (09:36→20:47)
[2017-12-17] MEDS: ACETAMINOPHEN 325 MG TAB PO PRN (10:10)
[2017-12-17] MEDS: NICOTINE 14 MG/EA PATCH TOP SCH (14:58)
[2017-12-17] MEDS: DEXTROSE 5%/0.9% SOD CHL 1,000 ML IV SCH (14:58)
--- NOTE | 2017-12-17 21:04 | Consultation ---
DATE OF CONSULTATION: 12/18/17 GI CONSULT NOTE 12/18/17 REASON FOR CONSULT: Intermittently persistent nausea, vomiting for 2 days. HISTORY OF PRESENTING ILLNESS: A 42-year-old very pleasant female, who is very well known to me. She is a patient of my associate, Dr. Mas. She has past medical history of uncomplicated reflux, gastroparesis, obesity, and documented history of Crohn's disease. However, she is not on any medication for Crohn's. She has had multiple hospitalizations in this hospital in the recent past. She came with 2 days' history of intermittently persistent nausea, vomiting. No vomiting was witnessed in the hospital. Blood work revealed some leukocytosis without any left shift. Electrolytes were noted normal. Liver enzymes normal. She got admitted for symptomatic treatment. Currently being given IV fluids. She was able to tolerate clear liquids very well. Denies any associated diarrhea. She is now hungry to eat solid food. REVIEW OF SYSTEMS: Twelve-point system reviewed. Symptomatology is limited to GI system. PAST MEDICAL HISTORY: GERD, gastroparesis, obesity, documented history for Crohn's. PAST SURGICAL HISTORY: x3. FAMILY HISTORY: Noncontributory. SOCIAL HISTORY: No smoking, alcohol or any illicit drug use. HOME MEDICATIONS 1. Acetaminophen with codeine. 2. Buprenorphine. 3. Fluconazole for 40 days. 4. Gabapentin. 5. Gemfibrozil. 6. Metoclopramide. 7. A 3 days' course of levofloxacin, as well as metronidazole. 8. Pantoprazole 40 mg daily. 9. Promethazine 25 mg daily. 10. Tizanidine 4 mg q.6 h p.r.n. 11. Trazodone 100 mg nightly. INPATIENT MEDICATION LIST: Reviewed as per MAY. ALLERGIES: IODINATED CONTRAST, SEVERAL NSAIDs, TOPIRAMATE, TRAMADOL, MORPHINE. PHYSICAL EXAMINATION VITALS: Temperature 98.4, pulse 71, respiration 18, blood pressure 144/86, oxygen saturation 95% on room air. GENERAL: Not in any acute distress. Oral mucosa is moist. Anicteric sclera. CVS: S1, S2 regular. LUNGS: Bilaterally grossly clear. ABDOMEN: Soft, mild palpable, poorly localized tenderness in upper abdomen without rebound, rigidity or guarding. Positive bowel sound. EXTREMITIES: Warm. No leg edema. LABORATORY DATA: WBC 14.42, which is down from 18.26, hemoglobin 12.3, hematocrit 38, platelet count 381,000. Sodium 133, potassium 3.7, chloride 101, bicarb 18, BUN 6, creatinine 0.57, glucose 96. Iron profile showed a serum iron 71, iron saturation 354, transferrin 253, and ferritin 79.87. Stool for C. diff is negative. Blood culture negative in 48 hours. Urine culture mixed raegan, probably contamination. CT SCAN OF THE ABDOMEN AND PELVIS WITHOUT CONTRAST 1. No acute abnormality on noncontrast evaluation. 2. Heterogeneous hepatic steatosis. IMPRESSION: Nausea, vomiting with leukocytosis. Source of infection is unknown. However, patient is being treated empirically with antibiotic. White count has started trending down. Continue supportive care. Nausea, vomiting is a manifestation of underlying systemic infection. Patient's upper GI symptoms has already improved. Continue present medical management. Advance the diet as tolerated. If she is able to tolerate solid food, then she can be discharged from GI standpoint. She is to follow with Dr. Mas as previously scheduled. I thank, Dr. Carlos, for allowing me to participate in the care of this patient. Job#: [id number] CQ MTDD
[2017-12-17] MEDS: TRAZODONE HCL 50 MG TAB PO SCH (21:26)
[2017-12-18] VITALS (7 sets, daily range): BP systolic 121–169; BP diastolic 65–85
[2017-12-18] MEDS: METOCLOPRAMIDE HCL 10 MG/2ML VIAL IV SCH ×5 (00:17→23:31)
[2017-12-18] MEDS: HYDRALAZINE HCL 20 MG/ML VIAL IV PRN (00:37)
[2017-12-18] MEDS: HYDROMORPHONE 2MG/ML 2 MG/ML ML IV PRN ×6 (00:38→21:39)
[2017-12-18] MEDS: PROMETHAZINE 12.5MG/ NACL 0.9% 50 ML IV PRN ×6 (00:38→21:39)
[2017-12-18] MEDS: METRONIDAZOLE 500MG/NS 100ML 100 ML IV SCH ×4 (03:10→20:17)
[2017-12-18] MEDS: PIPER-TAZ 3.375 GM 50 ML IV SCH ×4 (04:14→20:18)
[2017-12-18 05:57] LABS: BASOPHILS % 0.2 % (0.0-1.0); EOSINOPHILS % 0.3 % (0.0-6.0); HEMATOCRIT 36.3 % (34.2-44.1); HEMOGLOBIN 12.4 g/dL (12.0-16.0); LYMPHOCYTES % 28.9 % (18.0-39.1); MEAN CORPUSCULAR HEMOGLOBIN 30.3 pg (28-32); MEAN CORPUSCULAR HGB CONC 34.2 g/dL (31-35); MEAN CORPUSCULAR VOLUME 88.8 fL (81-99); MONOCYTES # (AUTO) 0.7 (0.2-0.8); MONOCYTES % 6.8 % (4.4-11.3); NEUTROPHILS # (AUTO) 6.5 (2.1-6.9); NEUTROPHILS % 62.7 % (38.7-80.0); PLATELET COUNT 359 x10e3/uL (140-360); RED BLOOD COUNT 4.09 x10e6/uL (3.6-5.1)
[2017-12-18 06:25] LABS: ANION GAP 15.4 mmol/L (8-16); BLOOD UREA NITROGEN 6 mg/dL (7-26); BUN/CREATININE RATIO 10 (6-25); CALCIUM 8.7 mg/dL (8.4-10.2); CARBON DIOXIDE 20 mmol/L (22-29); CHLORIDE 102 mmol/L (98-107); CREATININE, SERUM 0.58 mg/dL (0.57-1.11); EST GLOMERULAR FILTRATION RATE > 60 ML/MIN (60-); GLUCOSE 105 mg/dL (74-118); LIPASE 230 U/L (8-78); MAGNESIUM 1.6 MG/DL (1.3-2.1); POTASSIUM 3.4 mmol/L (3.5-5.1); SODIUM 134 mmol/L (136-145)
[2017-12-18] MEDS: FENTANYL 25 MCG/HR PATCH TOP SCH (09:30)
[2017-12-18] MEDS: GEMFIBROZIL 600 MG TAB PO SCH ×2 (09:41→16:18)
[2017-12-18] MEDS: NICOTINE 14 MG/EA PATCH TOP SCH (09:42)
[2017-12-18] MEDS: METHYLPREDNISOLONE SOD SUCC 125 MG/2ML VIAL IV SCH (09:42)
[2017-12-18] MEDS: GABAPENTIN 400 MG CAP PO SCH ×3 (09:42→20:17)
[2017-12-18] MEDS: PANTOPRAZOLE 40 MG 10ML VIAL IV SCH (09:42)
[2017-12-18] MEDS: DEXTROSE 5%/0.9% SOD CHL 1,000 ML IV SCH (10:10)
[2017-12-18] MEDS ORDERED: SODIUM CHLORIDE 0.9% 50ML 50 ML ONE ×2 (11:02→16:16)
[2017-12-18] MEDS: ACETAMINOPHEN 325 MG TAB PO PRN (16:18)
[2017-12-18] MEDS: METHYLPREDNISOLONE SOD SUCC 40 MG/ML VIAL IV SCH (20:17)
[2017-12-18] MEDS: TRAZODONE HCL 50 MG TAB PO SCH (20:17)
[2017-12-19] VITALS (8 sets, daily range): BP systolic 117–152; BP diastolic 79–98
[2017-12-19] MEDS ORDERED: MAGNESIUM SULFATE 2GM/50ML 50 ML IV ONE (01:30)
[2017-12-19] MEDS: HYDROMORPHONE 2MG/ML 2 MG/ML ML IV PRN ×5 (01:48→18:10)
[2017-12-19] MEDS: PROMETHAZINE 12.5MG/ NACL 0.9% 50 ML IV PRN ×5 (01:50→18:10)
[2017-12-19] MEDS: METRONIDAZOLE 500MG/NS 100ML 100 ML IV SCH ×4 (02:43→20:50)
[2017-12-19] MEDS: PIPER-TAZ 3.375 GM 50 ML IV SCH ×4 (02:43→20:50)
[2017-12-19] MEDS: METOCLOPRAMIDE HCL 10 MG/2ML VIAL IV SCH ×3 (05:18→17:08)
[2017-12-19] MEDS: GEMFIBROZIL 600 MG TAB PO SCH ×2 (07:41→16:18)
[2017-12-19] MEDS: PANTOPRAZOLE 40 MG 10ML VIAL IV SCH (07:41)
[2017-12-19] MEDS: GABAPENTIN 400 MG CAP PO SCH ×3 (07:42→20:50)
[2017-12-19] MEDS: METHYLPREDNISOLONE SOD SUCC 40 MG/ML VIAL IV SCH ×2 (07:42→20:50)
[2017-12-19] MEDS: NICOTINE 14 MG/EA PATCH TOP SCH (07:42)
[2017-12-19] MEDS: MAGNESIUM OXIDE 400 MG TAB PO SCH ×2 (07:42→16:18)
[2017-12-19 08:54] LABS: BASOPHILS % 0.1 % (0.0-1.0); HEMATOCRIT 38.4 % (34.2-44.1); HEMOGLOBIN 12.8 g/dL (12.0-16.0); LYMPHOCYTES # (AUTO) 3.7 (1.0-3.2); LYMPHOCYTES % 25.4 % (18.0-39.1); MEAN CORPUSCULAR HEMOGLOBIN 30.4 pg (28-32); MEAN CORPUSCULAR HGB CONC 33.3 g/dL (31-35); MEAN CORPUSCULAR VOLUME 91.2 fL (81-99); MONOCYTES # (AUTO) 0.9 (0.2-0.8); MONOCYTES % 6.3 % (4.4-11.3); NEUTROPHILS # (AUTO) 9.9 (2.1-6.9); NEUTROPHILS % 67.6 % (38.7-80.0); PLATELET COUNT 366 x10e3/uL (140-360); RED BLOOD COUNT 4.21 x10e6/uL (3.6-5.1); RED CELL DISTRIBUTION WIDTH 14.9 % (11.7-14.4)
[2017-12-19 09:13] LABS: ANION GAP 16.1 mmol/L (8-16); BLOOD UREA NITROGEN 5 mg/dL (7-26); BUN/CREATININE RATIO 8 (6-25); CALCIUM 8.8 mg/dL (8.4-10.2); CARBON DIOXIDE 22 mmol/L (22-29); CHLORIDE 106 mmol/L (98-107); CREATININE, SERUM 0.62 mg/dL (0.57-1.11); EST GLOMERULAR FILTRATION RATE > 60 ML/MIN (60-); GLUCOSE 117 mg/dL (74-118); POTASSIUM 3.1 mmol/L (3.5-5.1); SODIUM 141 mmol/L (136-145)
[2017-12-19] MEDS ORDERED: SODIUM CHLORIDE 0.9% 50ML 50 ML ONE ×2 (10:04→16:02)
[2017-12-19] MEDS ORDERED: POTASSIUM CHLORIDE 20 MEQ TAB CR PO ONE (15:00)
[2017-12-19] MEDS: ACETAMINOPHEN 325 MG TAB PO PRN (16:53)
[2017-12-19] MEDS: DEXTROSE 5%/0.9% SOD CHL 1,000 ML IV SCH (18:10)
[2017-12-19] MEDS ORDERED: NON-FORMULARY MEDICATION (Buprenorphine (Butrans) 1 PATCH) TOP SCH (20:15)
[2017-12-19] MEDS: TRAZODONE HCL 50 MG TAB PO SCH (20:50)
[2017-12-19] MEDS: METOCLOPRAMIDE HCL 10 MG TAB PO SCH (20:51)
[2017-12-19] MEDS: HYDROCODONE/APAP 5MG-325MG TAB PO PRN (22:40)
[2017-12-20] VITALS: BP 141/96
[2017-12-20] MEDS ORDERED: NON-FORMULARY MEDICATION (Acetaminophen With Codeine (Tylenol With Codeine #4 Tablet) 1 TA PO SCH
[2017-12-20] MEDS: PIPER-TAZ 3.375 GM 50 ML IV SCH ×2 (03:00→08:04)
[2017-12-20 04:00] VITALS: BP 143/86
[2017-12-20] MEDS: PROMETHAZINE HCL 25 MG TAB PO PRN ×2 (05:50→12:00)
[2017-12-20] MEDS: HYDROCODONE/APAP 5MG-325MG TAB PO PRN ×2 (05:50→12:00)
[2017-12-20 06:47] LABS: BASOPHILS % 0.1 % (0.0-1.0); HEMATOCRIT 38.4 % (34.2-44.1); LYMPHOCYTES # (AUTO) 4.4 (1.0-3.2); LYMPHOCYTES % 19.7 % (18.0-39.1); MEAN CORPUSCULAR HEMOGLOBIN 30.8 pg (28-32); MEAN CORPUSCULAR HGB CONC 33.9 g/dL (31-35); MONOCYTES # (AUTO) 1.3 (0.2-0.8); MONOCYTES % 5.7 % (4.4-11.3); NEUTROPHILS # (AUTO) 16.5 (2.1-6.9); NEUTROPHILS % 73.8 % (38.7-80.0); PLATELET COUNT 374 x10e3/uL (140-360); RED BLOOD COUNT 4.22 x10e6/uL (3.6-5.1)
[2017-12-20 07:08] LABS: AMYLASE 134 U/L (25-125); ANION GAP 15.6 mmol/L (8-16); BLOOD UREA NITROGEN 6 mg/dL (7-26); BUN/CREATININE RATIO 10 (6-25); CALCIUM 9.1 mg/dL (8.4-10.2); CARBON DIOXIDE 20 mmol/L (22-29); CHLORIDE 108 mmol/L (98-107); CREATININE, SERUM 0.59 mg/dL (0.57-1.11); EST GLOMERULAR FILTRATION RATE > 60 ML/MIN (60-); GLUCOSE 110 mg/dL (74-118); LIPASE 312 U/L (8-78); POTASSIUM 3.6 mmol/L (3.5-5.1); SODIUM 140 mmol/L (136-145)
[2017-12-20 07:50] VITALS: BP 143/86
[2017-12-20] MEDS: GEMFIBROZIL 600 MG TAB PO SCH (08:04)
[2017-12-20] MEDS: NICOTINE 14 MG/EA PATCH TOP SCH (08:04)
[2017-12-20] MEDS: MAGNESIUM OXIDE 400 MG TAB PO SCH (08:04)
[2017-12-20] MEDS: GABAPENTIN 400 MG CAP PO SCH (08:04)
[2017-12-20] MEDS: ACETAMINOPHEN 325 MG TAB PO PRN ×2 (08:04→14:14)
[2017-12-20] MEDS: METOCLOPRAMIDE HCL 10 MG TAB PO SCH ×2 (08:04→12:00)
[2017-12-20 08:55] VITALS: BP 156/90
[2017-12-20 12:26] VITALS: BP 121/82
[2017-12-20] MEDS ORDERED: NICODERM CQ1 EAC1 TOP (14:27)
[2017-12-20] MEDS ORDERED: FENTANYL1 EACH TOP (14:27)
[2017-12-20] MEDS ORDERED: GABAPENTIN400 MG PO (14:27)
[2017-12-20] MEDS ORDERED: Hydrocodone/Apap 5MG-325MG PO (14:27)
[2017-12-20] MEDS ORDERED: PROTONIX40 MG/ML PO (14:27)
[2017-12-20] MEDS ORDERED: REGLAN10 MG PO (14:43)
--- NOTE | 2017-12-21 02:12 | Discharge Summary ---
CHIEF COMPLAINT: Abdominal pain and vomiting. PERTINENT HISTORY AND PHYSICAL FINDINGS: Patient is a pleasant 42-year-old female who arrived at [facility] complaining of abdominal pain, nausea, and vomiting that began December 10, 2017. The abdominal pain was constant stabbing pain located primarily in the left upper quadrant, left lower quadrant, radiating to the right upper quadrant. Patient had a fever of 101 degrees at home on . Pain was worse with eating and improved without any pain medications. She denied diarrhea at home but had diarrhea twice on December 14, 2017, after having contrast for CT. PAST MEDICAL HISTORY: Significant for pancreatitis, hepatic steatosis, obesity, Crohn disease, gastroesophageal reflux disease, chronic pain, anemia, gastroparesis, GI bleed and hyperlipidemia. She has a past medical history of x3, cholecystectomy, and tubal ligation. ADMITTING DIAGNOSES 1. Pancreatitis. 2. Hypokalemia. 3. Hyponatremia. 4. UTI. 5. Hyperlipidemia. 6. Chronic pain. 7. Crohn disease. 8. Gastroparesis. 9. Obesity. 10. Diarrhea. DISCHARGE DIAGNOSES 1. Acute pancreatitis. 2. Hyponatremia, improved. 3. Hypokalemia, improved. 4. Hypomagnesemia, improved. 5. Nausea, vomiting and diarrhea with leukocytosis. 6. Crohn disease. 7. Chronic pain. 8. Gastroparesis. 9. Active smoker 1 pack per day. 10. Overweight with body mass index 28.61. PERTINENT DIAGNOSTICS: On December 14, 2017, WBC 17.85, hemoglobin 15.3, hematocrit 45.2, and platelets 467,000. Sodium 136, potassium 3.3, chloride 101, CO2 of 29, BUN 6, and creatinine 0.59. GFR greater than 60. Glucose 80, calcium 10.3. Total bilirubin 0.5, AST 34, ALT 16, and alkaline phosphatase 81. Total protein 7.1, albumin 3.3, lipase 125. C-reactive protein 11.4. Urinalysis showed 1+ protein, 1+ ketones, trace blood, bilirubin 1+, many urine bacteria, moderate amount of mucus. Urine culture showed 10,000 to 50,000 cpu/mL mixed raegan contamination. On December 16, 2017, fecal occult blood test was positive. Blood cultures were obtained on December 14, 2017, which did not show any growth. On December 14, 2017, a CT of the abdomen and pelvis showed no acute abnormality. There was heterogenous hepatic steatosis. Chest x-ray on December 16, 2017, was negative. No echocardiogram findings noted. Patient's lipase gradually increased from 168 to 230 and today to 312. Amylase 134. Today on day of discharge, sodium 140, potassium 3.6, chloride 108, CO2 of 20, BUN 6, creatinine 0.58, and glucose 110. WBC is 22.3, hemoglobin 13, hematocrit 38.4, and platelets 374,000. Yesterday, phosphorus 3.0, magnesium 2.0. During her stay, patient received aggressive IV fluids. Her pain was controlled with fentanyl patch, IV Dilaudid, and pain management. Followed Dr. Kent, Dr. Kleber Peck with gastroenterology also followed. Patient's nausea, vomiting, and diarrhea improved. She did have some diarrhea today. She states that she did have stomach pain all night with shaking; however, currently pain is relieved with [place] and Tylenol. Electrolyte repletions were provided and electrolytes are now within normal limits. White blood cell count had been trending down, it did increase with administration of steroids. She was given IV Zosyn, IV Flagyl as antibiotic treatment. C. diff toxin of stool was negative. Overall, patient has improved. PHYSICAL EXAMINATION: General: No acute distress, supine, is able to sit on the edge of the bed without difficulty. Lungs are clear to auscultation. Respiratory unlabored, breathing room air. HEENT: Extraocular eye movements are intact. Neck: Supple. Cardiovascular: Regular rate and rhythm. No murmur. She still has D5 normal saline infusing 50 mL an hour into her peripheral IV as extra hydration prior to discharge. Abdomen: Bowel sounds positive x4 quadrants. Soft. Very mild tenderness on exam. Extremities: Without pitting edema. No clubbing or cyanosis. No edema. No signs or symptoms of DVT. Neurologic: GCS is 15, nonfocal. Per gastroenterology, patient can be discharged home as she is eating well without nausea or vomiting. She has chronic abdominal pain, and I have explained to her to go ahead and follow up with Dr. Kent who she sees on an outpatient basis already for pain management. Patient states she will also follow up with Dr. Peck and/or his gastroenterology team. Patient to follow up with PCP, Dr. Sohail Carlos, in 1 to 2 weeks. Continue with GI soft diet and advance as tolerated. ACTIVITY LEVEL: As tolerated. Per request, prescriptions for promethazine for nausea and Reglan will be provided. Dictated by: Peter Arriaga, BRITTNEY SOHAIL CARLOS MD Job#: [id number]
[2017-12-21] MEDS ORDERED: PANTOPRAZOLE SOD 40 MG TABEC PO SCH (07:30)
--- OUTSIDE RECORDS SUMMARY | 2017-12-22 12:09 | XMS REPORT ---
Author Author Mariaelena Alicia Organization [employer] Address Unknown Phone Unavailable Care Team Providers Care Manager Print Name Role Phone Mariaelena Alicia CP Unavailable Allergies, Adverse Reactions, Alerts Substance Reaction Event Type NSAIDS Info Not Available Drug Allergy Zofran Info Not Available Drug Allergy Tramadol HCl Info Not Available Drug Allergy Topamax Info Not Available Drug Allergy Morphine Sulfate Info Not Available Drug Allergy Problems Problem Type Condition Code Onset Dates Condition Status Assessment Mixed stress and urge urinary incontinence N39.46 Active Problem Chronic pancreatitis, unspecified pancreatitis type K86.1 Active Problem Other chronic pain G89.29 Active Problem Gastroparesis K31.84 Active Assessment Dizziness R42 Active Assessment Chronic seasonal allergic rhinitis due to pollen J30.1 Active Problem Unspecified abdominal pain R10.9 Active Problem GERD with esophagitis K21.0 Active Medications Medication Code System Code Instructions Start Date End Date Status Dosage Loratadine [facility] [address]-46 10 MG Orally Once a day September 12, 2016 Dec 11, 2016 Active 1 tablet VESIcare [facility] [address]-87 5 MG Orally Once a day September 12, 2016 Dec 11, 2016 Active 1 tablet Protonix [facility] [address]-66 40 MG Orally Once a day Active 1 tablet Trazodone HCl [facility] [address]-54 50 MG Orally Once a day Active 1 tablet at bedtime as needed Bentyl [facility] [address]-47 10 MG Orally as needed Active 1 tablet Tizanidine HCl [facility] [address]-18 4 MG Orally every 12 hours Active 1 tablet as needed Butrans [facility] [address]-46 10 MCG/HR Transdermal Active 1 patch to skin Reglan [facility] [address]-95 5 MG Orally Active not defined Tylenol/Codeine #4 [facility] [address]-66 300-60 MG Orally every 6 hrs Active 1 tablet as needed Gabapentin [facility] [address]-38 300 MG Orally Three times a day Active 1 capsule Vital Signs Date/Time: September 12, 2016 BMI 31.24 Index Weight 182 lbs Height 64 in Temperature 98.9 F Blood Pressure Diastolic 71 mm Hg Blood Pressure Systolic 100 mm Hg Results No Known Results Summary Purpose [employer] Submission
--- OUTSIDE RECORDS SUMMARY | 2017-12-22 12:09 | XMS REPORT ---
Author Author Mariaelena Alicia Organization [employer] Address Unknown Phone Unavailable Care Team Providers Care Mobile Service Rv Technician Name Role Phone Mariaelena Alicia CP Unavailable Allergies, Adverse Reactions, Alerts Substance Reaction Event Type NSAIDS Info Not Available Drug Allergy Zofran Info Not Available Drug Allergy Tramadol HCl Info Not Available Drug Allergy Topamax Info Not Available Drug Allergy Morphine Sulfate Info Not Available Drug Allergy Encounters Encounter Location Date ANNUAL PHYSICAL [facility] [place] Jan 28, 2016 Problems Problem Type Condition ICD-9 Code Onset Dates Condition Status Assessment Unspecified abdominal pain R10.9 Active Assessment Chronic pancreatitis, unspecified pancreatitis type K86.1 Active Assessment Other chronic pain G89.29 Active Problem Chronic pancreatitis, unspecified pancreatitis type K86.1 Active Problem Other chronic pain G89.29 Active Problem Gastroparesis K31.84 Active Assessment Encounter to establish care Z76.89 Active Assessment Gastroparesis K31.84 Active Problem Unspecified abdominal pain R10.9 Active Problem GERD with esophagitis K21.0 Active Assessment Mixed stress and urge urinary incontinence N39.46 Active Assessment Oral yeast infection B37.0 Active Assessment GERD with esophagitis K21.0 Active Medications Medication Code System Code Instructions Start Date End Date Status Dosage Fluconazole [facility] [address]-38 100 MG Orally every day (qd) Jan 28, 2016 Feb 08, 2016 Active 1 tablet Trazodone HCl [facility] [address]-15 50 MG Orally Once a day Active 1 tablet at bedtime as needed Reglan [facility] [address]-51 5 MG Orally Active Unknown Gabapentin [facility] [address]-41 300 MG Orally Three times a day Active 1 capsule Bentyl [facility] [address]-22 10 MG Orally as needed Active 1 tablet Tylenol/Codeine #4 [facility] [address]-55 300-60 MG Orally every 6 hrs Active 1 tablet as needed Butrans [facility] [address]-38 10 MCG/HR Transdermal Active 1 patch to skin Protonix [facility] [address]-13 40 MG Orally Once a day Active 1 tablet Tizanidine HCl [facility] [address]-62 4 MG Orally every 12 hours Active 1 tablet as needed Social History Social History Element Qualifiers Date Reported Tobacco Use: . Are you a: current smoker Jan 28, 2016 Sexual Hx: . Had sex in the last 12 months (vaginal, oral, or anal)?: Yes, with: Women only, Use protection?: No, Have you ever had an STD?: No, LMP:: 01/16/16 Jan 28, 2016 Marital Status: . Jan 28, 2016 Caffeine intake? . Status: Yes, What type: Soft Drinks Jan 28, 2016 Do you exercise? . Answer: No Jan 28, 2016 Do you drink alcohol? . Do you drink alcohol? No Jan 28, 2016 Travel outside [place]: . Yes, [place] 22 years ago Jan 28, 2016 Occupation: . Unemployed Jan 28, 2016 Vital Signs Date/Time: Jan 28, 2016 Weight 188 lbs Height 64 in Temperature 97.0 F Blood Pressure Diastolic 86 mm Hg Blood Pressure Systolic 117 mm Hg Summary Purpose [employer] Submission
--- OUTSIDE RECORDS SUMMARY | 2017-12-22 12:09 | XMS REPORT | Continuity of Care Document ---
Author Author [facility] Interface Address Unknown Phone Unavailable Problems Problem Status Onset Date Classification Date Reported Comments Source Mixed stress and urge urinary incontinence Active Diagnosis 09/16/2016 Rajiv Walker Chronic pancreatitis, unspecified pancreatitis type Active Problem 09/16/2016 Rajiv Walker Other chronic pain Active Problem 09/16/2016 Rajiv Walker Gastroparesis Active Problem 09/16/2016 Rajiv Walker Dizziness Active Diagnosis 09/16/2016 Rajiv Walker Chronic seasonal allergic rhinitis due to pollen Active Diagnosis 09/16/2016 Rajiv Walker Unspecified abdominal pain Active Problem 09/16/2016 Rajiv Walker GERD with esophagitis Active Problem 09/16/2016 Rajiv Walker Encounter to establish care Active Diagnosis 02/04/2016 Rajiv Walker Oral yeast infection Active Diagnosis 02/04/2016 Rajiv Walker Medications Medication Details Route Status Patient Instructions Ordering Provider Order Date Source Loratadine 1 tablet Orally Active 10 MG Orally Once a day [facility] 09/12/2016 Rajiv Walker VESIcare 1 tablet Orally Active 5 MG Orally Once a day [facility] 09/12/2016 Rajiv Walker VESIcare 1 tablet Orally Active 5 MG Orally Once a day [facility] 02/18/2016 Rajiv Walker Fluconazole 1 tablet Orally Active 100 MG Orally every day (qd) [facility] 01/28/2016 Rajiv Walker Protonix 1 tablet Orally Active 40 MG Orally Once a day [facility] Rajiv Walker Trazodone HCl 1 tablet at bedtime as needed Orally Active 50 MG Orally Once a day [facility] Rajiv Walker Bentyl 1 tablet Orally Active 10 MG Orally as needed [facility] Rajiv Walker Tizanidine HCl 1 tablet as needed Orally Active 4 MG Orally every 12 hours [facility] Rajiv Walker Butrans 1 patch to skin Transdermal Active 10 MCG/HR Transdermal [facility] Rajiv Walker Reglan not defined Orally Active 5 MG Orally [facility] Enayet Rahim Tylenol/Codeine #4 1 tablet as needed Orally Active 300-60 MG Orally every 6 hrs [facility] [place] him Gabapentin 1 capsule Orally Active 300 MG Orally Three times a day [facility] [place] Rahim Allergies, Adverse Reactions, Alerts Substance Category Reaction Severity Reaction type Status Date Reported Comments Source NSAIDS Adverse Reaction Info Not Available Adverse Reaction Active 09/12/2016 Enayet Rahim Zofran Adverse Reaction Info Not Available Adverse Reaction Active 09/12/2016 Enayet Rahim Tramadol HCl Adverse Reaction Info Not Available Adverse Reaction Active 09/12/2016 Enayet Rahim Topamax Adverse Reaction Info Not Available Adverse Reaction Active 09/12/2016 Enayet Rahim Morphine Sulfate Adverse Reaction Info Not Available Adverse Reaction Active 09/12/2016 Enayet Rahim Immunizations Immunization Date Given Site Status Last Updated Comments Source Results Order Name Results Value Reference Range Date Interpretation Comments Source Vital Signs Vital Sign Value Date Comments Source Weight 182 09/12/2016 Enayet Rahim Height 64 09/12/2016 Enayet Rahim Temperature Oral (F) 98.9 F 09/12/2016 Enayet Rahim Diastolic (mm Hg) 71 09/12/2016 Enayet Rahim Systolic (mm Hg) 100 09/12/2016 Enayet Rahim Weight 188 01/28/2016 Enayet Rahim Height 64 01/28/2016 Enayet Rahim Temperature Oral (F) 97.0 F 01/28/2016 Enayet Rahim Diastolic (mm Hg) 86 01/28/2016 Enayet Rahim Systolic (mm Hg) 117 01/28/2016 Enayet Rahim Encounters Location Location Details Encounter Type Encounter Number Reason For Visit Attending Provider ADM Date DC Date Status Source Rajiv [place], [place] ANNUAL PHYSICAL [id number] 01/28/2016 01/28/2016 Rajiv Walker [place], [place] ANNUAL PHYSICAL [id number] 01/28/2016 01/28/2016 Rajiv Walker MD, [place] Unknown [id number] 02/18/2016 02/18/2016 Rajiv Walker Procedures Procedure Code Date Perfomer Comments Source
--- OUTSIDE RECORDS SUMMARY | 2017-12-22 12:09 | XMS REPORT ---
Author Author Mariaelena Alicia Organization [employer] Address Unknown Phone Unavailable Care Team Providers Care Wash Oil Cooler Operator Name Role Phone Mariaelena Alicia CP Unavailable Encounters Encounter Location Date ANNUAL PHYSICAL [facility] [place] Jan 28, 2016 Unknown [facility] [place] Feb 18, 2016 Problems Problem Type Condition ICD-9 Code Onset Dates Condition Status Problem Chronic pancreatitis, unspecified pancreatitis type K86.1 Active Problem Other chronic pain G89.29 Active Problem Gastroparesis K31.84 Active Problem Unspecified abdominal pain R10.9 Active Problem GERD with esophagitis K21.0 Active Medications Medication Code System Code Instructions Start Date End Date Status Dosage VESIcare [facility] [address]-51 5 MG Orally Once a day Feb 18, 2016 May 18, 2016 Active 1 tablet Social History Social History Element Qualifiers Date [...] 2016 Occupation: . Unemployed Jan 28, 2016 Summary Purpose [employer] Submission
--- NOTE | 2018-03-08 13:22 | Consultation ---
DATE OF CONSULTATION: December 15, 2017 PAIN MANAGEMENT CONSULTATION REASON FOR CONSULTATION: Pain management. HISTORY OF PRESENT ILLNESS: The patient is very well known to me from the pain center. Had been admitted to Dr. Carlos's service for pain control. She has a history of chronic recurrent acute pancreatitis on and off along with chronic back pain syndrome. She came in with abdominal pain, nausea, vomiting, and cramps. Pain is sharp, cramping, burning, and no radiation at this moment. Right upper quadrant in the epigastric area and left upper quadrant. It is upper abdominal in the periumbilical area. Described the pain as 10/10 on the scale with 10 being worse. Pain started 5 days ago and she presented and was worsening. It was associated with nausea and has been constant. It went from 6 to 10/10 on the scale with 10 being worse. Pain is constant and some times has sore area. Relieved by nausea and vomiting. She has loss of appetite and vomiting. Vomiting has occurred several times. No diarrhea. Has an additional complaint of abdominal pain, dysuria and back pain. REVIEW OF SYSTEMS: No constipation. No blood. No hematemesis. No difficulty breathing. No bleeding. No bloody stool. No . No chest pain. No difficulty breathing. No cough or joint pain. She has some back pain in the past. Had no fever, but abdominal pain especially on urination some times. The pain is . PAST MEDICAL HISTORY: Recurrent pancreatitis, hepatic steatosis, morbid obesity, Crohn's disease, GERD, chronic pain syndrome, anemia, gastroparesis. PAST SURGICAL HISTORY: Three C-sections, cholecystectomy and tubal ligation, history of diabetes. SOCIAL HISTORY: Smokes 1-pack a day. No alcohol or drug abuse. ALLERGIES: IODINE, NONSTEROIDAL ANTI-INFLAMMATORY, MORPHINE, ZOFRAN, TOPAMAX, AND TRAMADOL. MEDICATIONS: See MAR. PHYSICAL EXAMINATION GENERAL: In pain but not acute distress. VITALS: Temperature 97, blood pressure 113/75, heart rate 83, respirations 18, pulse oximetry 96%. HEENT: Normocephalic. NECK: Supple. LUNGS: Air entry bilaterally. HEART: Regular rate and rhythm. ABDOMEN: Tenderness in the epigastric area. EXTREMITIES: No edema. NEUROLOGICAL: Alert and nonfocal. LABORATORY: Noted. ASSESSMENT AND PLAN 1. The patient with ongoing pain. 2. Pancreatitis due to diabetes: Get lipase. 3. Hypertension. 4. Hyponatremia. 5. Urinary tract infection. 6. Chronic pain syndrome. 7. Multiple dilations in the past to control her pain. 8. Pancreatitis. The patient was seen and examined in consult. Plan discussed in detail. Continue supportive care while she is inpatient. Job#: [id number] JESSICA
== END 2017-12-20 15:48 | disposition home or self-care (01) | DRG 439 ==
LOC: ER 18:06 → ERHOLD 22:28 → OBSVTOIN 22:28 → MED/SURG3 12-15 01:48
PROVIDERS: ADMIT Internal Medicine; ATTEND Internal Medicine
DX: K85.90 Acute pancreatitis without necrosis or infection, unspecified (principal); K50.90 Crohn's disease, unspecified, without complications; N39.0 Urinary tract infection, site not specified; E87.1 Hypo-osmolality and hyponatremia; E86.0 Dehydration; R50.9 Fever, unspecified; K76.0 Fatty (change of) liver, not elsewhere classified; E66.9 Obesity, unspecified; D64.9 Anemia, unspecified; K31.84 Gastroparesis; K21.9 Gastro-esophageal reflux disease without esophagitis; Z83.3 Family history of diabetes mellitus; F17.210 Nicotine dependence, cigarettes, uncomplicated; Z88.5 Allergy status to narcotic agent; Z88.8 Allergy status to other drugs, medicaments and biological substances; Z91.041 Radiographic dye allergy status; E87.6 Hypokalemia; G89.29 Other chronic pain; R19.7 Diarrhea, unspecified; E66.3 Overweight; Z68.29 Body mass index [BMI] 29.0-29.9, adult; E83.42 Hypomagnesemia
CPT/HCPCS: 36415; 71045; 74176; 80048; 80053; 81001; 81025; 82150; 82270; 82607; 82728; 82746; 83540; 83690; 83735; 84100; 84466; 84484; 85025; 86140; 87040; 87086; 87493; 96361; 96367; 96374; 96376; 99284; J0360; J0500; J2543; J2550; J2765; J2920; J2930; J3475; J3480; J7030; J7042; J7050

== ENCOUNTER 2017-12-22 21:30 | Inpatient (IN) | payer OTHER ==
[~2017-12-22] VITALS: Ht 165.1 cm; Wt 83.2 kg
[~2017-12-22 21:30] MED LIST changes: +FENTANYL1 EACH TOP; +GABAPENTIN400 MG PO; +Hydrocodone/Apap 5MG-325MG PO; +NICODERM CQ1 EAC1 TOP; +PROTONIX40 MG/ML PO
[2017-12-22] MEDS ORDERED: ACETAMINOPHEN 1000 MG/100 ML IV STA (21:42)
[2017-12-22] MEDS ORDERED: SODIUM CHLORIDE 0.9% 1000ML 1,000 ML IV ONE ×2 (21:45→22:45)
[2017-12-22] MEDS ORDERED: PROMETHAZINE HCL (IM) 25 MG/ML VIAL IM ONE (21:45)
[2017-12-22 22:21] LABS: BASOPHILS # (AUTO) 0.1 (0.0-0.1); BASOPHILS % 0.2 % (0.0-1.0); EOSINOPHILS # (AUTO) 0.5 (0.0-0.4); EOSINOPHILS % 1.8 % (0.0-6.0); HEMATOCRIT 46.7 % (34.2-44.1); HEMOGLOBIN 15.6 g/dL (12.0-16.0); LYMPHOCYTES # (AUTO) 6.3 (1.0-3.2); LYMPHOCYTES % 21.6 % (18.0-39.1); MEAN CORPUSCULAR HGB CONC 33.4 g/dL (31-35); MEAN CORPUSCULAR VOLUME 92.7 fL (81-99); MONOCYTES # (AUTO) 1.6 (0.2-0.8); MONOCYTES % 5.5 % (4.4-11.3); NEUTROPHILS # (AUTO) 20.6 (2.1-6.9); NEUTROPHILS % 70.1 % (38.7-80.0); PLATELET COUNT 406 x10e3/uL (140-360); RED BLOOD COUNT 5.04 x10e6/uL (3.6-5.1); RED CELL DISTRIBUTION WIDTH 14.8 % (11.7-14.4)
[2017-12-22 22:37] LABS: CLARITY,URINE CLEAR (CLEAR); COLOR,URINE YELLOW (YELLOW); LEUKOCYTE ESTERASE ,URINE TRACE (NEGATIVE); NITRITE,URINE NEGATIVE (NEGATIVE); PROTEIN,URINE DIPSTICK NEGATIVE (NEGATIVE)
[2017-12-22 22:38] LABS: BILIRUBIN,URINE NEGATIVE (NEGATIVE); KETONES,URINE NEGATIVE (NEGATIVE); URINE UROBILINOGEN 0.2 mg/dL (0.2 - 1)
[2017-12-22 23:00] LABS: BACTERIA,URINE RARE /HPF; EPITHELIAL CELLS,URINE FEW /LPF; RBC,URINE 0-5 /HPF (0-5); WBC,URINE (MAN) 0-5 /HPF (0-5)
[2017-12-22 23:06] LABS: ALANINE AMINOTRANSFERASE 11 IU/L (0-55); ALBUMIN 3.8 g/dL (3.5-5.0); ALBUMIN/GLOBULIN RATIO 0.8 (0.8-2.0); ALKALINE PHOSPHATASE 79 IU/L (40-150); AMYLASE 135 U/L (25-125); ANION GAP 24.6 mmol/L (8-16); BLOOD UREA NITROGEN < 5 mg/dL (7-26); CALCIUM 9.5 mg/dL (8.4-10.2); CARBON DIOXIDE 14 mmol/L (22-29); CHLORIDE 99 mmol/L (98-107); CREATININE, SERUM 0.69 mg/dL (0.57-1.11); EST GLOMERULAR FILTRATION RATE > 60 ML/MIN (60-); GLUCOSE 113 mg/dL (74-118); LIPASE 215 U/L (8-78); POTASSIUM 3.6 mmol/L (3.5-5.1); SODIUM 134 mmol/L (136-145)
[2017-12-22 23:07] LABS: BUN/CREATININE RATIO 7 (6-25)
--- NOTE | 2017-12-22 23:10 | NUR ---
bill called for picc line
--- NOTE | 2017-12-22 23:30 | NUR ---
CONSENT FOR PICC LINE REVIEWED, ALL AGREED UPON, AND SIGNED BY PATIENT
[2017-12-23] VITALS (7 sets, daily range): BP systolic 111–165; BP diastolic 75–77
--- NOTE | 2017-12-23 00:26 | Diagnostic Imaging Report ---
EXAM: CT Abdomen and Pelvis WITHOUT contrast INDICATION: Allergic to iodine, abdominal pain, fever. COMPARISON: 12/14/2017 and 08/28/2017 TECHNIQUE: Abdomen and pelvis were scanned utilizing a multidetector helical scanner from the lung base to the pubic symphysis without administration of IV contrast. Absence of intravenous contrast decreases sensitivity for detection of focal lesions and vascular pathology. Coronal and sagittal reformations were obtained. Routine protocol was performed. IV CONTRAST: None. ORAL CONTRAST: Gastrografin RADIATION DOSE: Total DLP: 441.07 mGy*cm Estimated effective dose: (DLP x 0.015 x size factor) mSv COMPLICATIONS: None FINDINGS: LINES and TUBES: None. LOWER THORAX: Unremarkable HEPATOBILIARY: The liver is diffuse hypodense compared to the spleen, consistent with diffuse hepatic diffuse hepatic steatosis. No focal hepatic lesions. No biliary ductal dilation. GALLBLADDER: There are cholecystectomy clips. SPLEEN: No splenomegaly. Splenial present in the left upper quadrant. PANCREAS: No focal masses or ductal dilatation. ADRENALS: No adrenal nodules KIDNEYS/URETERS: No hydronephrosis. No cystic or solid mass lesions. No stones. GI TRACT: No abnormal distention, wall thickening, or evidence of bowel obstruction. Appendix is normal. PELVIC ORGANS/BLADDER: Unremarkable. LYMPH NODES: No lymphadenopathy. VESSELS: Unremarkable. PERITONEUM / RETROPERITONEUM: No free air or fluid. BONES: Unremarkable. SOFT TISSUES: Unremarkable. IMPRESSION: 1. No acute intra-abdominal or pelvic abnormality. 2. Diffuse hepatic steatosis with right lobe predominance. Signed by: Dr. Brenton Rodrigues M.D. on 12/23/2017 12:23 AM
[2017-12-23] MEDS ORDERED: ONDANSETRON HCL INJ 2 MG/ML VIAL IV PRN (01:15)
[2017-12-23] MEDS ORDERED: ACETAMINOPHEN 1000 MG/100 ML IV PRN (01:30)
[2017-12-23] MEDS: HYDROMORPHONE 2MG/ML 2 MG/ML ML IV PRN ×8 (01:42→23:25)
--- NOTE | 2017-12-23 02:15 | NUR ---
picc nurse arrived. consent reviewed. time out performed at bedside. r upper arm picc inserted by picc nurse. rad called for xray to cofirm placement per protocol.
--- NOTE | 2017-12-23 02:27 | NUR ---
Report received from ER nurse Oswald. Patient admitted in unit T 0227 by ally. Patient alert/oriented x3. Denied pain and no SOB.No respiration distress noted. Head to assessment completed. No skin breakdown noted. Patient instructed to call for help as needed. Bed in lower position.locked. Call garcia within reach. Will continue to monitor.
--- NOTE | 2017-12-23 02:37 | Diagnostic Imaging Report ---
EXAMINATION: CHEST XRAY LINE PLACEMENT INDICATION: PICC line placement. COMPARISON: 12/16/2017 FINDINGS: TUBES and LINES: Interval placement of right upper extremity PICC line with tip overlying the mid SVC LUNGS: Lungs are well inflated. Lungs are clear. There is no evidence of pneumonia or pulmonary edema. PLEURA: No pleural effusion or pneumothorax. HEART AND MEDIASTINUM: The cardiomediastinal silhouette is unremarkable. BONES AND SOFT TISSUES: No acute osseous lesion. Soft tissues are unremarkable. UPPER ABDOMEN: No free air under the diaphragm. IMPRESSION: No acute thoracic abnormality. Signed by: Dr. Brenton Rodrigues M.D. on 12/23/2017 2:33 AM
[2017-12-23] MEDS: SODIUM CHLORIDE 0.9% 1000ML 1,000 ML IV SCH ×3 (03:29→14:00)
[2017-12-23] MEDS: PROMETHAZINE 12.5MG/ NACL 0.9% 12.5 MG/50 ML BAG IV PRN ×4 (04:53→23:15)
--- NOTE | 2017-12-23 07:10 | NUR ---
Report given to AM nurse,walking round done. No issued noted.
[2017-12-23] MEDS ORDERED: ACETAMINOPHEN 325 MG TAB PO PRN (09:00)
[2017-12-23] MEDS ORDERED: TIZANIDINE HCL 4 MG TAB PO PRN (09:00)
[2017-12-23] MEDS ORDERED: METOPROLOL TARTRATE INJ 1 MG/ML VIAL IV PRN (09:00)
[2017-12-23] MEDS: VANCOMYCIN 1GM/NS 250 ML 250 ML IV SCH ×2 (10:02→20:09)
[2017-12-23] MEDS: GABAPENTIN 400 MG CAP PO SCH ×3 (10:02→20:09)
[2017-12-23] MEDS: PANTOPRAZOLE 40 MG 10ML VIAL IV SCH (10:02)
[2017-12-23] MEDS: NICOTINE 14 MG/EA PATCH TOP SCH (10:05)
[2017-12-23] MEDS: METOCLOPRAMIDE HCL 10 MG/2ML VIAL IV SCH ×3 (12:30→20:09)
[2017-12-23] MEDS: PIPER-TAZ 3.375 GM 50 ML IV SCH ×3 (12:30→23:45)
[2017-12-23] MEDS: GEMFIBROZIL 600 MG TAB PO SCH (17:00)
--- NOTE | 2017-12-23 19:20 | NUR ---
PATIENT RECEIVED. PATIENT IS SITTING IN RECLINER, AAOX3. RESP EVEN AND UNLABORED. NO ACUTE DISTRESS NOTED. PATIENT DENIES OF ANY PAIN OR DISCOMFORT AT THIS TIME. TELE IN PLACE. IV FLUID INFUSING. CALL LIGHT WITHIN REACH. INSTRUCT TO CALL FOR ASSISTANCE. BED LOW/LOCKED. CONTINUE TO MONITOR CLOSELY
[2017-12-23] MEDS: TRAZODONE HCL 50 MG TAB PO SCH (20:09)
[2017-12-24] VITALS (7 sets, daily range): BP systolic 106–141; BP diastolic 58–87
[2017-12-24] MEDS: HYDROMORPHONE 2MG/ML 2 MG/ML ML IV PRN ×8 (00:25→21:08)
[2017-12-24] MEDS: SODIUM CHLORIDE 0.9% 1000ML 1,000 ML IV SCH ×3 (01:51→20:51)
[2017-12-24] MEDS: PIPER-TAZ 3.375 GM 50 ML IV SCH ×4 (05:41→23:54)
[2017-12-24 06:52] LABS: BASOPHILS % 0.4 % (0.0-1.0); EOSINOPHILS # (AUTO) 0.5 (0.0-0.4); EOSINOPHILS % 4.7 % (0.0-6.0); HEMOGLOBIN 10.8 g/dL (12.0-16.0); LYMPHOCYTES # (AUTO) 4.9 (1.0-3.2); LYMPHOCYTES % 47.1 % (18.0-39.1); MEAN CORPUSCULAR HEMOGLOBIN 30.7 pg (28-32); MEAN CORPUSCULAR HGB CONC 32.7 g/dL (31-35); MEAN CORPUSCULAR VOLUME 93.8 fL (81-99); MONOCYTES # (AUTO) 0.9 (0.2-0.8); MONOCYTES % 8.6 % (4.4-11.3); NEUTROPHILS # (AUTO) 4.1 (2.1-6.9); PLATELET COUNT 275 x10e3/uL (140-360); RED BLOOD COUNT 3.52 x10e6/uL (3.6-5.1); RED CELL DISTRIBUTION WIDTH 15.1 % (11.7-14.4)
--- NOTE | 2017-12-24 07:05 | NUR ---
Received patient mid fowlers position, side rails upx2, call light within reach. AAOX4 to time,person, place, situation. Respirations even and unlabored. NS 125ml/hr via Right PICC. Instructed to use call light for assistance. Voiced understanding. Will continue to monitor.
[2017-12-24 07:13] LABS: ANION GAP 12.8 mmol/L (8-16); BLOOD UREA NITROGEN < 5 mg/dL (7-26); CALCIUM 8.3 mg/dL (8.4-10.2); CARBON DIOXIDE 22 mmol/L (22-29); CHLORIDE 108 mmol/L (98-107); CREATININE, SERUM 0.56 mg/dL (0.57-1.11); EST GLOMERULAR FILTRATION RATE > 60 ML/MIN (60-); GLUCOSE 94 mg/dL (74-118); LIPASE 88 U/L (8-78); MAGNESIUM 1.5 MG/DL (1.3-2.1); SODIUM 140 mmol/L (136-145)
[2017-12-24 07:15] LABS: BUN/CREATININE RATIO 9 (6-25)
[2017-12-24 07:18] LABS: POTASSIUM 2.8 mmol/L (3.5-5.1)
--- NOTE | 2017-12-24 07:28 | NUR ---
paged to notify of k+ level
--- NOTE | 2017-12-24 08:10 | NUR ---
Randa Tee NP aware of K+ level. See orders
[2017-12-24] MEDS ORDERED: POTASSIUM CHLORIDE 20 MEQ TAB CR PO STA (08:11)
[2017-12-24] MEDS ORDERED: POTASSIUM CHLORIDE 20MEQ/100ML 200 ML IV ONE (08:15)
[2017-12-24] MEDS: GABAPENTIN 400 MG CAP PO SCH ×3 (08:40→20:37)
[2017-12-24] MEDS: OYST-CAL-D 500MG TABLET PO SCH ×2 (08:40→17:40)
[2017-12-24] MEDS: PANTOPRAZOLE 40 MG 10ML VIAL IV SCH (08:40)
[2017-12-24] MEDS: NICOTINE 14 MG/EA PATCH TOP SCH ×2 (08:40)
[2017-12-24] MEDS: VANCOMYCIN 1GM/NS 250 ML 250 ML IV SCH ×2 (08:40→09:30)
[2017-12-24] MEDS: GEMFIBROZIL 600 MG TAB PO SCH ×2 (08:40→17:40)
[2017-12-24] MEDS: METOCLOPRAMIDE HCL 10 MG/2ML VIAL IV SCH ×4 (08:40→20:37)
--- NOTE | 2017-12-24 13:35 | NUR ---
PT IS ALERT AND ORIENTED X 4 ABLE TO AMBULATE ON OWN AND GIVES GOOD HISTORY. LIVES IN OWN APARTMENT UPSTAIRS WITH PATRICIA [phone]. PCP IS [facility]. NO PRIOR HOME HEALTH OR DME. PLAN IS TO RETURN HOME WITH NO BARRIERS TO DISCHARGE.
[2017-12-24] MEDS: PROMETHAZINE 12.5MG/ NACL 0.9% 12.5 MG/50 ML BAG IV PRN ×2 (14:40→21:08)
--- NOTE | 2017-12-24 18:30 | NUR ---
Resting in bed watching tv, side rails upx2, call light within reach. No s/s of acute distress noted. Report to be given to oncoming nurse.
--- NOTE | 2017-12-24 19:20 | NUR ---
PATIENT RECEIVED. PATIENT IS RESTING IN BED, AAOX3. RESP EVEN AND UNLABORED. NO ACUTE DISTRESS NOTED. PATIENT DENIES OF ANY PAIN OR DISCOMFORT AT THIS TIME. TELE IN PLACE. IV FLUID INFUSING. CALL LIGHT WITHIN REACH. INSTRUCT TO CALL FOR ASSISTANCE. BED LOW/LOCKED. CONTINUE TO MONITOR CLOSELY
[2017-12-24] MEDS: TRAZODONE HCL 50 MG TAB PO SCH (20:37)
--- NOTE | 2017-12-24 22:17 | Progress Note ---
DATE: December 24, 2017 SUBJECTIVE: Patient reports less nausea. No episode of any vomiting. She is hungry and would like to eat. REVIEW OF SYSTEMS: GENERAL: No fever or chills. RESPIRATORY: No cough or expectoration. CVS: No chest pain, palpitation. MEDICATIONS: Reviewed MAR. She is getting intravenous Zosyn as well as vancomycin along with other medications. PHYSICAL EXAMINATION: VITAL SIGNS: Temperature 97.9, pulse 75, respirations 20, blood pressure 106/68, oxygen saturation 96% on room air. GENERAL: Not in any acute distress. HEENT: Oral mucosa is moist. Anicteric sclerae. ABDOMEN: Soft, nondistended. Mild palpable epigastric tenderness. No rebound, rigidity, or guarding. Positive bowel sounds. LABS: WBC has come down to 10.44 from 29.33, hemoglobin 10.8 from 15.6, hematocrit 33 from 46.7, platelet count 275,000 from 406,000. Sodium 140, potassium 2.8, chloride 108, bicarb 22, BUN less than 5, creatinine 0.56. IMPRESSION: 1. Nausea, vomiting, cause unclear, most likely this is all functional. 2. Leukocytosis, normalized, on empiric antibiotic. Workup for sepsis is negative. Urine culture is in progress. 3. Hypokalemia. 4. Anemia with a hemoglobin dropping from 15 to 10.8 without any gross gastrointestinal bleeding. This is likely due to fluid shift and dilutional. PLAN: Continue supportive care, PPI daily. Reassurance. Advance the diet as tolerated. Job#: [id number]
[2017-12-25] VITALS (8 sets, daily range): BP systolic 112–160; BP diastolic 69–87
[2017-12-25] MEDS: HYDROMORPHONE 2MG/ML 2 MG/ML ML IV PRN ×5 (00:10→21:49)
--- NOTE | 2017-12-25 00:36 | Consultation ---
DATE OF CONSULTATION: December 23, 2017 GI CONSULT NOTE CONSULTING PHYSICIAN: Dr. Duran Carlos REASON FOR CONSULT: Recurrent nausea, vomiting. HISTORY OF PRESENTING ILLNESS: [id number]old female who was just discharged last week after being treated conservatively for recurrent episodes of nausea, vomiting. Workup at that time was negative. She is getting readmitted with the same symptoms. This time she got admitted with white count of 29.33. CT scan of the abdomen and pelvis repeated again with oral contrast only. This again did not show any acute intra-abdominal or pelvic abnormality. It did show diffuse hepatic steatosis with right lobe predominance. Patient empirically being treated with intravenous piperacillin and vancomycin. She reports no abdominal pain. No associated diarrhea. She is a patient of my associate, Dr. Mas. She has been having these upper GI symptoms for more than a year. She has had a workup done that included upper endoscopy in the recent past, which was non-conclusive, revealed no structural cause to explain upper GI symptoms. At some point, she was also told that she has diabetic gastroparesis. REVIEW OF SYSTEMS: Twelve-point system reviewed, symptomatology is limited to GI system. PAST MEDICAL HISTORY: Type 2 diabetes, hyperlipidemia, GERD, diabetic gastroparesis, chronic pain syndrome, fibromyalgia, peripheral neuropathy. PAST SURGICAL HISTORY: Cholecystectomy, upper endoscopy. FAMILY HISTORY: Noncontributory. SOCIAL HISTORY: Ex-smoker. Seldom drinks alcohol. Never used any illicit drugs. ALLERGIES: IODINATED CONTRAST, [id number] DRUGS. INPATIENT MEDICATIONS: Acetaminophen with codeine, buprenorphine, gabapentin, gemfibrozil, metoclopramide, nicotine dermal patch, pantoprazole 40 mg daily, promethazine 25 mg daily, tizanidine 4 mg daily, trazodone 50 mg nightly. PHYSICAL EXAMINATION: VITAL SIGNS: Temperature 97.9, pulse 75, respiration 20, blood pressure 124/58 to 106/68, oxygen saturation 96% on room air. GENERAL: Not in any acute distress. HEENT: Oral mucosa is moist. Anicteric sclerae. NECK: No neck or axillary adenopathy. CVS: S1 and S2 regular. LUNGS: Bilaterally grossly clear. ABDOMEN: Soft, nondistended. Mild palpable epigastric tenderness on deep palpation without rebound, rigidity, or guarding. Positive bowel sounds. EXTREMITIES: Warm. No leg edema. LABS: Sodium 134, potassium 3.6, chloride 99, bicarb 14, BUN 5, creatinine 0.69. Liver enzymes normal. Amylase and lipase slightly elevated to 135 and 215 respectively. WBC 29.33, hemoglobin 15.6, hematocrit 46.7, MCV 92.7, platelet count 406,000. Blood culture, no growth in 24 hours. Urine culture is in progress. IMPRESSION: 1. Chronic nausea, vomiting, this seems to be functional. 2. Leukocytosis, cause unclear. PLAN: Reassurance, supportive care, PPI. Avoidance of NSAIDs. Start clear liquid diet and advance as tolerated. Thank you. Job#: [id number]
[2017-12-25] MEDS: SODIUM CHLORIDE 0.9% 1000ML 1,000 ML IV SCH ×4 (01:22→23:28)
[2017-12-25] MEDS: PIPER-TAZ 3.375 GM 50 ML IV SCH ×3 (04:56→17:25)
[2017-12-25 05:04] LABS: BASOPHILS # (AUTO) 0.1 (0.0-0.1); BASOPHILS % 0.5 % (0.0-1.0); EOSINOPHILS # (AUTO) 0.5 (0.0-0.4); EOSINOPHILS % 4.2 % (0.0-6.0); HEMATOCRIT 32.8 % (34.2-44.1); HEMOGLOBIN 10.7 g/dL (12.0-16.0); LYMPHOCYTES % 46.3 % (18.0-39.1); MEAN CORPUSCULAR HEMOGLOBIN 30.4 pg (28-32); MEAN CORPUSCULAR HGB CONC 32.6 g/dL (31-35); MEAN CORPUSCULAR VOLUME 93.2 fL (81-99); MONOCYTES % 8.8 % (4.4-11.3); NEUTROPHILS # (AUTO) 4.3 (2.1-6.9); PLATELET COUNT 288 x10e3/uL (140-360); RED BLOOD COUNT 3.52 x10e6/uL (3.6-5.1); RED CELL DISTRIBUTION WIDTH 14.6 % (11.7-14.4)
[2017-12-25 05:33] LABS: ANION GAP 12.5 mmol/L (8-16); CALCIUM 8.6 mg/dL (8.4-10.2); CARBON DIOXIDE 22 mmol/L (22-29); CHLORIDE 109 mmol/L (98-107); CREATININE, SERUM 0.57 mg/dL (0.57-1.11); EST GLOMERULAR FILTRATION RATE > 60 ML/MIN (60-); GLUCOSE 96 mg/dL (74-118); MAGNESIUM 1.5 MG/DL (1.3-2.1); POTASSIUM 3.5 mmol/L (3.5-5.1); SODIUM 140 mmol/L (136-145)
[2017-12-25 05:34] LABS: BLOOD UREA NITROGEN < 2 mg/dL (7-26); BUN/CREATININE RATIO 4 (6-25)
[2017-12-25] MEDS: PROMETHAZINE 12.5MG/ NACL 0.9% 12.5 MG/50 ML BAG IV PRN ×2 (06:25→22:15)
--- NOTE | 2017-12-25 06:25 | NUR ---
PATIENT C/O NAUSEA AND ABDOMINAL PAIN AFTER EATING A YELLO. PAIN MED AND NAUSEA MED GIVEN PER MAR. CONTINUE TO MONITOR CLOSELY
--- NOTE | 2017-12-25 07:00 | NUR ---
RCD PT AT BED PT IS ALERT AND ORIENTED ASSESSMENT DONE PT RESTING ON BED NO SIGNS OF ANY DISTRESS NOTED NO C/O PAIN ON ABDOMEN IV PATENT BED LOW AND LOCKED CALL LIGHT IN REACH
[2017-12-25] MEDS: GEMFIBROZIL 600 MG TAB PO SCH ×2 (07:30→16:30)
[2017-12-25] MEDS: METOCLOPRAMIDE HCL 10 MG/2ML VIAL IV SCH ×4 (07:30→20:45)
[2017-12-25] MEDS: VANCOMYCIN 1GM/NS 250 ML 250 ML IV SCH ×2 (08:30→20:47)
[2017-12-25] MEDS: PANTOPRAZOLE 40 MG 10ML VIAL IV SCH (09:00)
[2017-12-25] MEDS: NICOTINE 14 MG/EA PATCH TOP SCH (09:00)
[2017-12-25] MEDS: GABAPENTIN 400 MG CAP PO SCH ×3 (09:00→20:55)
[2017-12-25] MEDS: OYST-CAL-D 500MG TABLET PO SCH ×2 (09:00→16:47)
--- NOTE | 2017-12-25 12:14 | NUR ---
AC TO ROLL CHANGER DIRECTOR TALKED LACEY LUGO REGARDING THE CHANGING OF PAIN MEDS IV SHE SAID NO PT NEED IV PAIN MEDS
--- NOTE | 2017-12-25 12:19 | NUR ---
LACEY LUGO RETURNED THE CALL AND GOT NEW ORDERS
[2017-12-25] MEDS: HYDROCODONE/APAP 5MG-325MG TAB PO PRN ×2 (12:43→18:43)
--- NOTE | 2017-12-25 18:42 | NUR ---
PT RESTING ON BED BED SIDE REPORT GIVEN TO ONCOMING NURSE
[2017-12-25] MEDS: TRAZODONE HCL 50 MG TAB PO SCH (20:55)
[2017-12-26] VITALS (8 sets, daily range): BP systolic 112–158; BP diastolic 73–86
[2017-12-26] MEDS: PIPER-TAZ 3.375 GM 50 ML IV SCH ×2 (00:15→05:42)
[2017-12-26] MEDS: HYDROMORPHONE 2MG/ML 2 MG/ML ML IV PRN ×4 (04:24→21:54)
[2017-12-26 04:46] LABS: BASOPHILS # (AUTO) 0.1 (0.0-0.1); BASOPHILS % 0.7 % (0.0-1.0); EOSINOPHILS # (AUTO) 0.5 (0.0-0.4); EOSINOPHILS % 5.7 % (0.0-6.0); HEMATOCRIT 33.7 % (34.2-44.1); HEMOGLOBIN 11.2 g/dL (12.0-16.0); LYMPHOCYTES # (AUTO) 4.8 (1.0-3.2); LYMPHOCYTES % 52.3 % (18.0-39.1); MEAN CORPUSCULAR HGB CONC 33.2 g/dL (31-35); MEAN CORPUSCULAR VOLUME 93.4 fL (81-99); MONOCYTES # (AUTO) 0.7 (0.2-0.8); MONOCYTES % 7.4 % (4.4-11.3); NEUTROPHILS # (AUTO) 3.1 (2.1-6.9); NEUTROPHILS % 33.7 % (38.7-80.0); PLATELET COUNT 290 x10e3/uL (140-360); RED BLOOD COUNT 3.61 x10e6/uL (3.6-5.1); RED CELL DISTRIBUTION WIDTH 14.6 % (11.7-14.4)
[2017-12-26 05:08] LABS: ANION GAP 14.4 mmol/L (8-16); BLOOD UREA NITROGEN < 5 mg/dL (7-26); CALCIUM 8.9 mg/dL (8.4-10.2); CARBON DIOXIDE 23 mmol/L (22-29); CHLORIDE 110 mmol/L (98-107); EST GLOMERULAR FILTRATION RATE > 60 ML/MIN (60-); GLUCOSE 87 mg/dL (74-118); MAGNESIUM 1.5 MG/DL (1.3-2.1); POTASSIUM 3.4 mmol/L (3.5-5.1); SODIUM 144 mmol/L (136-145)
[2017-12-26 05:17] LABS: BUN/CREATININE RATIO 8 (6-25)
--- NOTE | 2017-12-26 07:05 | NUR ---
REPORT GIVEN TO ONCOMING NURSE,WALKING ROUNDS MADE.
[2017-12-26] MEDS: GEMFIBROZIL 600 MG TAB PO SCH ×2 (07:30→16:30)
[2017-12-26] MEDS: METOCLOPRAMIDE HCL 10 MG/2ML VIAL IV SCH ×4 (07:30→20:26)
[2017-12-26] MEDS: HYDROCODONE/APAP 5MG-325MG TAB PO PRN ×3 (07:45→18:10)
[2017-12-26] MEDS: VANCOMYCIN 1GM/NS 250 ML 250 ML IV SCH (08:55)
[2017-12-26] MEDS: PANTOPRAZOLE 40 MG 10ML VIAL IV SCH (09:00)
[2017-12-26] MEDS ORDERED: POTASSIUM CHLORIDE 20 MEQ TAB CR PO NR (09:00)
[2017-12-26] MEDS: NICOTINE 14 MG/EA PATCH TOP SCH (09:00)
[2017-12-26] MEDS: GABAPENTIN 400 MG CAP PO SCH ×3 (09:00→20:25)
[2017-12-26] MEDS: OYST-CAL-D 500MG TABLET PO SCH ×2 (09:00→16:36)
[2017-12-26] MEDS: SODIUM CHLORIDE 0.9% 1000ML 1,000 ML IV SCH ×2 (09:03→16:36)
[2017-12-26] MEDS: PROMETHAZINE 12.5MG/ NACL 0.9% 12.5 MG/50 ML BAG IV PRN (18:10)
--- NOTE | 2017-12-26 18:46 | NUR ---
PT RESTING ON BED BED SIDE REPORT GIVEN TO ONCOMING NURSE
--- NOTE | 2017-12-26 19:33 | Progress Note ---
DATE: December 26, 2017 SUBJECTIVE: Patient is able to eat regular diet. Denies any abdominal pain. Reports no nausea, vomiting. REVIEW OF SYSTEMS GENERAL: No fever or chills. CVS: No chest pain, palpitation. RESPIRATORY: No cough or expectoration. MEDICATIONS: Reviewed as per MAY. PHYSICAL EXAMINATION VITAL SIGNS: Temperature 98.6, pulse 75, respirations 18, blood pressure 149/73 to 156/81, oxygen saturation 97% on room air. GENERAL: Not in any acute distress. Oral mucosa is moist. ABDOMEN: Soft, nondistended, nontender. No palpable mass or hernia. Positive bowel sounds. LABS: WBC has normalized. It is 9.22. Hemoglobin 11.2, hematocrit 33.7, MCV 93.4, platelet count 290, sodium 144, potassium 3.4, chloride 110, bicarb 23, BUN less than 5, creatinine 0.60. IMPRESSION: Nausea, vomiting have resolved. Patient has a functional dyspepsia. PLAN: Supportive care. Reassurance. Continue present medication. Patient can be discharged from GI standpoint. Patient to follow with his carrier associate, Dr. Mas, within 1 to 2 weeks upon discharge. Job#: [id number] LPA MTDChantel
[2017-12-26] MEDS: TRAZODONE HCL 50 MG TAB PO SCH (20:25)
--- NOTE | 2017-12-26 20:27 | NUR ---
PT REFUSED BED ALARM,TEACHING DONE REGARDING PT SAFETY,PT STILL REFUSED TO HAVE BED ALARM ON.CHARGE NURSE NOTIFIED.
[2017-12-27] VITALS (8 sets, daily range): BP systolic 128–167; BP diastolic 75–87
[2017-12-27] MEDS: SODIUM CHLORIDE 0.9% 1000ML 1,000 ML IV SCH ×3 (00:18→16:44)
[2017-12-27] MEDS: HYDROCODONE/APAP 5MG-325MG TAB PO PRN ×4 (01:09→20:23)
[2017-12-27] MEDS: HYDROMORPHONE 2MG/ML 2 MG/ML ML IV PRN ×3 (04:02→17:20)
[2017-12-27 04:58] LABS: BASOPHILS # (AUTO) 0.1 (0.0-0.1); BASOPHILS % 0.5 % (0.0-1.0); EOSINOPHILS # (AUTO) 0.6 (0.0-0.4); EOSINOPHILS % 5.5 % (0.0-6.0); HEMATOCRIT 33.1 % (34.2-44.1); HEMOGLOBIN 11.1 g/dL (12.0-16.0); LYMPHOCYTES # (AUTO) 4.9 (1.0-3.2); LYMPHOCYTES % 49.4 % (18.0-39.1); MEAN CORPUSCULAR HEMOGLOBIN 30.9 pg (28-32); MEAN CORPUSCULAR HGB CONC 33.5 g/dL (31-35); MEAN CORPUSCULAR VOLUME 92.2 fL (81-99); MONOCYTES # (AUTO) 0.8 (0.2-0.8); MONOCYTES % 7.6 % (4.4-11.3); NEUTROPHILS # (AUTO) 3.7 (2.1-6.9); NEUTROPHILS % 36.8 % (38.7-80.0); PLATELET COUNT 311 x10e3/uL (140-360); RED BLOOD COUNT 3.59 x10e6/uL (3.6-5.1); RED CELL DISTRIBUTION WIDTH 14.3 % (11.7-14.4)
[2017-12-27 05:19] LABS: ANION GAP 13.3 mmol/L (8-16); BLOOD UREA NITROGEN < 5 mg/dL (7-26); CALCIUM 8.7 mg/dL (8.4-10.2); CARBON DIOXIDE 25 mmol/L (22-29); CHLORIDE 107 mmol/L (98-107); CHOL/HDL RATIO 6.6 (3.0-3.6); CHOLESTEROL 184 MD/DL (0-199); CREATININE, SERUM 0.55 mg/dL (0.57-1.11); EST GLOMERULAR FILTRATION RATE > 60 ML/MIN (60-); GLUCOSE 98 mg/dL (74-118); HDL CHOLESTEROL 28 MG/DL (40-60); LDL CHOLESTEROL 111 MG/DL (60-130); LIPASE 79 U/L (8-78); MAGNESIUM 1.6 MG/DL (1.3-2.1); POTASSIUM 3.3 mmol/L (3.5-5.1); SODIUM 142 mmol/L (136-145); TRIGLYCERIDES 225 MG/DL (0-149)
[2017-12-27 05:20] LABS: BUN/CREATININE RATIO 9 (6-25)
--- NOTE | 2017-12-27 07:00 | NUR ---
RCD PT AT BED PT IS ALERT AND ORIENTED ASSESSMENT DONE PT RESTING ON BED NO SIGNS OF ANY DISTRESS NOTED IV PATENT BED LOW AND LOCKED CALL LIGHT IN REACH
--- NOTE | 2017-12-27 07:04 | NUR ---
REPORT GIVEN TO ONCOMING NURSE.WALKING ROUNDS MADE.
[2017-12-27] MEDS: GEMFIBROZIL 600 MG TAB PO SCH ×2 (07:30→16:30)
[2017-12-27] MEDS: METOCLOPRAMIDE HCL 10 MG/2ML VIAL IV SCH ×4 (07:30→20:23)
[2017-12-27] MEDS: PROMETHAZINE 12.5MG/ NACL 0.9% 12.5 MG/50 ML BAG IV PRN (08:30)
[2017-12-27] MEDS: OYST-CAL-D 500MG TABLET PO SCH ×2 (09:00→16:44)
[2017-12-27] MEDS: GABAPENTIN 400 MG CAP PO SCH ×3 (09:00→20:23)
[2017-12-27] MEDS: PANTOPRAZOLE 40 MG 10ML VIAL IV SCH (09:00)
[2017-12-27] MEDS: NICOTINE 14 MG/EA PATCH TOP SCH (09:00)
[2017-12-27] MEDS ORDERED: POTASSIUM CHLORIDE 20 MEQ TAB CR PO NR (10:03)
--- NOTE | 2017-12-27 18:39 | NUR ---
PT RESTING ON BED BED SIDE REPORT GIVEN TO ONCOMING NURSE
--- NOTE | 2017-12-27 19:15 | NUR ---
RECEIVED PT IN BED WATCHING TV. NO S/S OF RESP DISTRESS. C/O PAIN TO ABD RATING 4. HAS PRN PAIN MED AVAILABLE. CALL LIGHT WITHIN REACH AND INSTRUCTED TO CALL FOR ASSISTANCE. PT VERBALIZED UNDERSTANDING. BED ALARM REFUSED.
--- NOTE | 2017-12-27 19:49 | Progress Note ---
DATE: December 27, 2017 SUBJECTIVE: Patient has had some nausea and vomited unadjusted food last night. She has been switched back to full liquid diet. Reports no abdominal pain. REVIEW OF SYSTEMS GENERAL: No fever or chills. RESPIRATORY: No cough or expectoration. CVS: No chest pain or palpitation. MEDICATIONS: Reviewed as per MAY. Patient is getting Dilaudid 1 mg every 6 hours as needed, metoclopramide 10 mg IV q. a.c. and h.s. along with other pantoprazole 40 mg IV daily. She is also on other medication as per MAY. PHYSICAL EXAMINATION VITAL SIGNS: Temperature 97.8, pulse 62, respirations 20, blood pressure 167/82 to 147/87, oxygen saturation 97% on room air. GENERAL: Not in any acute distress. HEENT: Oral mucosa is moist. Anicteric sclerae. ABDOMEN: Soft, nondistended, nontender. No palpable mass or hernia. Positive bowel sounds. IMPRESSION 1. Functional dyspepsia. 2. Gastroparesis. 3. On opioid therefore at risk of developing constipation. PLAN: I have had extensive counseling with the patient. I do not suspect any underlying acute GI pathology that is causing nausea and vomiting. Patient was treated with antibiotic for leukocytosis, although there was no source of infection identified. Patient's leukocytosis has normalized. Patient is off antibiotic. We will continue Reglan as before. Recommend to discontinue Dilaudid. Standing bowel regimen to ensure daily bowel movement. Job#: [id number] JESUS
[2017-12-27] MEDS: SENNA-S TABLET PO SCH ×2 (20:23→22:25)
[2017-12-27] MEDS: TRAZODONE HCL 50 MG TAB PO SCH (20:23)
[2017-12-28] MEDS: SODIUM CHLORIDE 0.9% 1000ML 1,000 ML IV SCH ×2 (00:04→09:20)
[2017-12-28] MEDS: HYDROMORPHONE 2MG/ML 2 MG/ML ML IV PRN ×3 (00:04→12:29)
[2017-12-28] MEDS: PROMETHAZINE 12.5MG/ NACL 0.9% 12.5 MG/50 ML BAG IV PRN ×3 (00:04→12:31)
[2017-12-28 00:15] VITALS: BP 143/83
[2017-12-28] MEDS: HYDROCODONE/APAP 5MG-325MG TAB PO PRN ×2 (02:46→09:21)
[2017-12-28 04:02] LABS: BASOPHILS # (AUTO) 0.1 (0.0-0.1); BASOPHILS % 0.6 % (0.0-1.0); EOSINOPHILS # (AUTO) 0.6 (0.0-0.4); EOSINOPHILS % 5.3 % (0.0-6.0); HEMATOCRIT 33.5 % (34.2-44.1); HEMOGLOBIN 11.1 g/dL (12.0-16.0); LYMPHOCYTES # (AUTO) 5.5 (1.0-3.2); LYMPHOCYTES % 48.8 % (18.0-39.1); MEAN CORPUSCULAR HEMOGLOBIN 30.5 pg (28-32); MEAN CORPUSCULAR HGB CONC 33.1 g/dL (31-35); MONOCYTES # (AUTO) 0.9 (0.2-0.8); MONOCYTES % 7.8 % (4.4-11.3); NEUTROPHILS # (AUTO) 4.2 (2.1-6.9); NEUTROPHILS % 37.1 % (38.7-80.0); PLATELET COUNT 300 x10e3/uL (140-360); RED BLOOD COUNT 3.64 x10e6/uL (3.6-5.1); RED CELL DISTRIBUTION WIDTH 14.1 % (11.7-14.4)
[2017-12-28 04:21] LABS: ANION GAP 16.3 mmol/L (8-16); BLOOD UREA NITROGEN < 5 mg/dL (7-26); CALCIUM 8.7 mg/dL (8.4-10.2); CARBON DIOXIDE 22 mmol/L (22-29); CHLORIDE 106 mmol/L (98-107); CREATININE, SERUM 0.61 mg/dL (0.57-1.11); EST GLOMERULAR FILTRATION RATE > 60 ML/MIN (60-); GLUCOSE 98 mg/dL (74-118); LIPASE 59 U/L (8-78); MAGNESIUM 1.5 MG/DL (1.3-2.1); POTASSIUM 3.3 mmol/L (3.5-5.1); SODIUM 141 mmol/L (136-145)
[2017-12-28 05:37] LABS: BUN/CREATININE RATIO 8 (6-25)
[2017-12-28 06:03] VITALS: BP 144/79
--- NOTE | 2017-12-28 07:00 | NUR ---
The was received in bed awake,alert, oriented times 4. No comp currently.
--- NOTE | 2017-12-28 07:00 | NUR ---
PATIENT IN BED WATCHING TV. NO RESP DISTRESS. REPORT GIVEN TO ONCOMING NURSE. CALL LIGHT WITHIN REACH, BED LOCKED IN LOWEST POSITION, AND X2 RAILS UP.
[2017-12-28 07:30] VITALS: BP 165/96
[2017-12-28] MEDS: METOCLOPRAMIDE HCL 10 MG/2ML VIAL IV SCH ×2 (07:58→12:16)
[2017-12-28] MEDS: GEMFIBROZIL 600 MG TAB PO SCH (07:58)
[2017-12-28 08:02] VITALS: BP 165/96
--- NOTE | 2017-12-28 08:30 | NUR ---
Randa Cintron is rounding and orders received and carried out. If the pt. tolerates lunch,she is to discharge home.
[2017-12-28] MEDS ORDERED: POLYETHYLENE GLYCOL 3350 17 GM PACK PO SCH (09:00)
[2017-12-28] MEDS ORDERED: POTASSIUM CHLORIDE 20 MEQ TAB CR PO NR (09:15)
[2017-12-28] MEDS: NICOTINE 14 MG/EA PATCH TOP SCH (09:20)
[2017-12-28] MEDS: PANTOPRAZOLE 40 MG 10ML VIAL IV SCH (09:20)
[2017-12-28] MEDS: GABAPENTIN 400 MG CAP PO SCH (09:20)
[2017-12-28] MEDS: OYST-CAL-D 500MG TABLET PO SCH (09:20)
[2017-12-28 11:21] VITALS: BP 167/88
--- NOTE | 2017-12-28 14:00 | NUR ---
The pt.'s iv has been discontinued and a light pressure dressing applied. The pt. was given discharge information and noscripts were written. She was escorted to private car by the PCT ib stable condition.
--- NOTE | 2017-12-28 21:03 | Discharge Summary ---
ADMISSION DIAGNOSES 1. Pancreatitis. 2. Sepsis. 3. Gastroparesis. 4. Hyperlipidemia. 5. Chronic pain. 6. Hyponatremia. 7. Tachycardia. 8. Urinary tract infection. DISCHARGE DIAGNOSES 1. Pancreatitis. 2. Sepsis. 3. Gastroparesis. 4. Hyperlipidemia. 5. Chronic pain. 6. Hyponatremia. 7. Tachycardia. 8. Urinary tract infection. 9. Ruled out urinary tract infection. 10. Ruled out sepsis. 11. Hypokalemia. HISTORY: The patient has a history of pancreatitis, hepatic steatosis, obesity, Crohn disease, GERD, chronic abdominal pain, anemia, gastroparesis, GI bleed, hyperlipidemia. The patient has a surgical history of x3, cholecystectomy, tubal ligation. FAMILY HISTORY: Both grandmothers had diabetes. SOCIAL HISTORY: The patient denies alcohol and illicit drug use. She admits to smoking one pack of cigarettes a day. HOSPITAL COURSE: This 42-year-old female discharged on 12/20/17 after having pancreatitis that was resolved. She was tolerating the diet, and was pain free. The pain returned 12/21/17 with nausea and vomiting and a fever of 102. The abdominal pain is sharp, constant, stabbing pain in the left upper quadrant. Pain not worsened by anything and not improved by anything. The patient also complains of dysuria and vaginal itching that began yesterday with associated clear discharge. On admission, the patient's lipase was 215, which was actually lower than it was prior to discharge [address] of the abdomen showed no acute intra-abdominal or pelvic abnormality. Diffuse hepatic steatosis with right lobe predominant. Blood cultures were negative. UA showed trace leukocytes, but urine culture was negative. The patient started on pain medicines, Promethazine and IV fluids. GI was also consulted again. No plan per GI. The patient's diet was slowly increased as tolerated. At the time of discharge, lipase is normal. Vital signs stable. The patient is afebrile. She is tolerating a regular diet once again. She will discharge home and follow up with GI and primary care in one to two weeks. The patient understands discharge instructions and agrees to plan. Dictated by: Randa Tee NP SOHAIL ENGLISH MD Job#: [id number] GH
== END 2017-12-28 15:21 | disposition home or self-care (01) | DRG 439 ==
LOC: ER 21:30 → ERHOLD 12-23 01:16 → MED/SURG2 12-23 02:39
PROVIDERS: ADMIT Internal Medicine; ATTEND Internal Medicine
PROC: 02HV33Z Insertion of Infusion Device into Superior Vena Cava, Percutaneous Approach (ICD-10-PCS; principal; 2017-12-23)
DX: K85.90 Acute pancreatitis without necrosis or infection, unspecified (principal); E87.1 Hypo-osmolality and hyponatremia; K50.90 Crohn's disease, unspecified, without complications; K31.84 Gastroparesis; E86.0 Dehydration; K21.9 Gastro-esophageal reflux disease without esophagitis; Z82.49 Family history of ischemic heart disease and other diseases of the circulatory system; F17.210 Nicotine dependence, cigarettes, uncomplicated; Z83.3 Family history of diabetes mellitus; E78.5 Hyperlipidemia, unspecified; G89.29 Other chronic pain; D72.829 Elevated white blood cell count, unspecified; D64.9 Anemia, unspecified; E87.6 Hypokalemia; R10.13 Epigastric pain; E83.51 Hypocalcemia; K76.0 Fatty (change of) liver, not elsewhere classified
CPT/HCPCS: 36415; 36569; 71045; 74176; 80048; 80053; 80061; 80202; 81001; 82150; 83605; 83690; 83735; 85025; 87040; 87086; 93005; 96361; 96374; 99284; J2543; J2550; J2765; J3370; J3480; J7030

== ENCOUNTER → 2018-05-07 | Emergency (ER) | payer OTHER ==
[~2018-05-07] VITALS: Ht 165.1 cm; Wt 81.6 kg
[~2018-05-07] MED LIST changes: +ALBUTEROL/IPRATROPIUM 3 ML NEB NEB ONE; +DEXAMETHASONE SOD PHOS 10 MG/1 ML VIAL IV ONE; +DICYCLOMINE HCL 20 MG/2 ML VIAL IM ONE; +FAMOTIDINE 20 MG/2 ML VIAL IV STA; +METOCLOPRAMIDE HCL 10 MG/2ML VIAL IV ONE; +ONDANSETRON HCL INJ 2MG/ML 2ML 2 MG/ML VIAL IV STA; +SODIUM CHLORIDE 0.9% 1000ML 1,000 ML IV ONE
--- OUTSIDE RECORDS SUMMARY | 2018-05-07 09:22 | XMS REPORT | Continuity of Care Document ---
Author Author [facility] Interface Address Unknown Phone Unavailable Problems Problem Status Onset Date Classification Date Reported Comments Source Chronic pancreatitis, unspecified pancreatitis type Active Problem 09/16/2016 Rajiv Walker Other chronic pain Active Problem 09/16/2016 Rajiv Walker Gastroparesis Active Problem 09/16/2016 Rajiv Walker Unspecified abdominal pain Active Problem 09/16/2016 Rajiv Walker GERD with esophagitis Active Problem 09/16/2016 Rajiv Walker Mixed stress and urge urinary incontinence Active Diagnosis 09/16/2016 Rajiv Walker Dizziness Active Diagnosis 09/16/2016 Rajiv Walker Chronic seasonal allergic rhinitis due to pollen Active Diagnosis 09/16/2016 Rajiv Walker Encounter to establish care Active Diagnosis 02/04/2016 Rajiv Walker Oral yeast infection Active Diagnosis 02/04/2016 Rajiv Walker Medications Medication Details Route Status Patient Instructions Ordering Provider Order Date Source Loratadine 1 tablet Orally Active 10 MG Orally Once a day [facility] 09/12/2016 Rajiv Walker VESIcare 1 tablet Orally Active 5 MG Orally Once a day [facility] 09/12/2016 Rajiv Walker VESIcare 1 tablet Orally Active 5 MG Orally Once a day [facility] 02/18/2016 Rajiv Walker Fluconazole 1 tablet Orally Active 100 MG Orally every day (qd) [facility] 01/28/2016 Rajiv Walker Protonix 1 tablet Orally Active 40 MG Orally Once a day [facility] Rajiv Walker Trazodone HCl 1 tablet at bedtime as needed Orally Active 50 MG Orally Once a day [facility] Rajiv Walker Bentyl 1 tablet Orally Active 10 MG Orally as needed Maral Rajiv Walker Tizanidine HCl 1 tablet as needed Orally Active 4 MG Orally every 12 hours [facility] Rajiv Walker Butrans 1 patch to skin Transdermal Active 10 MCG/HR Transdermal [facility] Rajiv Walker Reglan not defined Orally Active 5 MG Orally [facility] Enayet Rahim Tylenol/Codeine #4 1 tablet as needed Orally Active 300-60 MG Orally every 6 hrs [facility] Enconsueloet him Gabapentin 1 capsule Orally Active 300 MG Orally Three times a day [facility] Enconsu[place] Rahim Allergies, Adverse Reactions, [...] Source Rajiv Walker MD, PA ANNUAL PHYSICAL [id number] 01/28/2016 01/28/2016 Rajiv Walker MD, PA ANNUAL PHYSICAL [id number] 01/28/2016 01/28/2016 Rajiv Walker MD, PA Unknown [id number] 02/18/2016 02/18/2016 Rajiv Walker Procedures Procedure Code Date Perfomer Comments Source
[2018-05-07 10:18] LABS: BASOPHILS # (AUTO) 0.1 (0.0-0.1); BASOPHILS % 0.5 % (0.0-1.0); EOSINOPHILS # (AUTO) 0.2 (0.0-0.4); EOSINOPHILS % 1.6 % (0.0-6.0); HEMATOCRIT 41.6 % (34.2-44.1); HEMOGLOBIN 14.1 g/dL (12.0-16.0); LYMPHOCYTES # (AUTO) 6.1 (1.0-3.2); LYMPHOCYTES % 45.4 % (18.0-39.1); MEAN CORPUSCULAR HEMOGLOBIN 30.7 pg (28-32); MEAN CORPUSCULAR HGB CONC 33.9 g/dL (31-35); MEAN CORPUSCULAR VOLUME 90.4 fL (81-99); MONOCYTES # (AUTO) 0.8 (0.2-0.8); MONOCYTES % 6.1 % (4.4-11.3); NEUTROPHILS # (AUTO) 6.2 (2.1-6.9); NEUTROPHILS % 46.1 % (38.7-80.0); PLATELET COUNT 428 x10e3/uL (140-360); RED CELL DISTRIBUTION WIDTH 14.3 % (11.7-14.4)
[2018-05-07 10:34] LABS: ALANINE AMINOTRANSFERASE 6 IU/L (0-55); ALBUMIN/GLOBULIN RATIO 0.8 (0.8-2.0); ALKALINE PHOSPHATASE 104 IU/L (40-150); ANION GAP 13.4 mmol/L (8-16); BLOOD UREA NITROGEN 7 mg/dL (7-26); BUN/CREATININE RATIO 9 (6-25); CALCIUM 8.9 mg/dL (8.4-10.2); CARBON DIOXIDE 24 mmol/L (22-29); CHLORIDE 99 mmol/L (98-107); EST GLOMERULAR FILTRATION RATE > 60 ML/MIN (60-); GLUCOSE 89 mg/dL (74-118); MAGNESIUM 1.9 MG/DL (1.3-2.1); POTASSIUM 3.4 mmol/L (3.5-5.1); SODIUM 133 mmol/L (136-145)
[2018-05-07 13:52] VITALS: BP 105/67
[2018-05-07 20:53] LABS: EOSINOPHILS % (MANUAL) 2 % (0-7); LYMPHOCYTES % (MANUAL) 39 % (19-48); MONOCYTES % (MANUAL) 4 % (3.4-9.0); NEUTROPHILS % (MANUAL) 47 % (40-74); PLATELET ESTIMATE ADEQUATE; PLATELET MORPHOLOGY COMMENT NORMAL; RBC MORPHOLOGY COMMENT NORMAL
== END | disposition home or self-care (01) ==
LOC: ER 09:18
DX: J70.5 Respiratory conditions due to smoke inhalation (principal); R11.2 Nausea with vomiting, unspecified; K50.90 Crohn's disease, unspecified, without complications; F17.210 Nicotine dependence, cigarettes, uncomplicated
CPT/HCPCS: 36415; 80053; 82375; 83735; 85025; 93005; 94640; 99284; J0500; J1100; J2765; J7030; J2405

== ENCOUNTER 2018-07-10 03:06 | Emergency (ER) | payer OTHER ==
[~2018-07-10] VITALS: Ht 165.1 cm; Wt 81.6 kg
[~2018-07-10 03:06] MED LIST changes: -ALBUTEROL/IPRATROPIUM 3 ML NEB NEB ONE; -DEXAMETHASONE SOD PHOS 10 MG/1 ML VIAL IV ONE; -DICYCLOMINE HCL 20 MG/2 ML VIAL IM ONE; -FAMOTIDINE 20 MG/2 ML VIAL IV STA; -METOCLOPRAMIDE HCL 10 MG/2ML VIAL IV ONE; -ONDANSETRON HCL INJ 2MG/ML 2ML 2 MG/ML VIAL IV STA; -SODIUM CHLORIDE 0.9% 1000ML 1,000 ML IV ONE
== END 2018-07-10 03:30 | disposition left against medical advice (07) ==
LOC: ER 03:06
DX: R10.84 Generalized abdominal pain (principal)

== ENCOUNTER 2024-08-15 18:01 | Inpatient (IN) | payer BC, OTHER ==
[~2024-08-15] VITALS: Ht 165.1 cm; Wt 99.8 kg
[~2024-08-15 18:01] MED LIST changes: +FIORICET 50-301 EACH PO
[2024-08-15 20:24] LABS: BASOPHILS % 0.4 % (0.0-1.0); EOSINOPHILS % 0.3 % (0.0-6.0); HEMATOCRIT 38.3 % (34.2-44.1); HEMOGLOBIN 12.2 g/dL (12.0-16.0); LYMPHOCYTES # (AUTO) 1.2 (1.0-3.2); LYMPHOCYTES % 13.1 % (18.0-39.1); MEAN CORPUSCULAR HEMOGLOBIN 26.8 pg (28-32); MEAN CORPUSCULAR HGB CONC 31.9 g/dL (31-35); MEAN CORPUSCULAR VOLUME 84.2 fL (81-99); MONOCYTES # (AUTO) 0.5 (0.2-0.8); MONOCYTES % 5.2 % (4.4-11.3); NEUTROPHILS # (AUTO) 7.6 (2.1-6.9); NEUTROPHILS % 80.6 % (38.7-80.0); PLATELET COUNT 448 x10e3/uL (140-360); RED BLOOD COUNT 4.55 x10e6/uL (3.6-5.1); RED CELL DISTRIBUTION WIDTH 14.6 % (11.7-14.4); WHITE BLOOD COUNT 9.48 x10e3/uL (4.8-10.8)
[2024-08-15 20:45] LABS: ALANINE AMINOTRANSFERASE 10 IU/L (0-55); ALBUMIN 4.1 g/dL (3.5-5.0); ALBUMIN/GLOBULIN RATIO 0.9 (0.8-2.0); ALKALINE PHOSPHATASE 75 IU/L (40-150); ANION GAP 19.3 mmol/L (8-16); BILIRUBIN,TOTAL 0.7 mg/dL (0.2-1.2); BLOOD UREA NITROGEN < 5 mg/dL (7-26); CALCIUM 9.9 mg/dL (8.4-10.2); CARBON DIOXIDE 22 mmol/L (22-29); CHLORIDE 103 mmol/L (98-107); CREATININE, SERUM 0.75 mg/dL (0.57-1.11); EST GLOMERULAR FILTRATION RATE 96 ML/MIN (>=60); GLUCOSE 117 mg/dL (74-118); SODIUM 141 mmol/L (136-145); TOTAL PROTEIN 8.7 g/dL (6.5-8.1)
[2024-08-15 20:50] LABS: BUN/CREATININE RATIO 7 (6-25); POTASSIUM 3.3 mmol/L (3.5-5.1)
[2024-08-15] MEDS: ONDANSETRON HCL INJ 2MG/ML 2ML 2 MG/ML VIAL IV STA (20:50)
[2024-08-15] MEDS: SODIUM CHLORIDE 0.9% 1000ML 1,000 ML IV ONE (20:51)
[2024-08-15] MEDS: Morphine 4mg INJECTION 4 MG/ML INJ IV ONE (20:51)
[2024-08-15] MEDS: METRONIDAZOLE 500 MG TAB PO SCH (20:52)
[2024-08-16] VITALS (11 sets, daily range): BP systolic 127–166; BP diastolic 87–90; PULSE 80–125; RESP 18–20; TEMP 97.9–98.6; O2SAT 97–100
[2024-08-16] MEDS ORDERED: ACETAMINOPHEN 1000 MG/100 ML IV PRN (00:15)
[2024-08-16] MEDS ORDERED: HYDRALAZINE HCL 20 MG/ML VIAL IV PRN (00:30)
[2024-08-16] MEDS ORDERED: ONDANSETRON HCL INJ 2MG/ML 2ML 2 MG/ML VIAL ONE (00:46)
[2024-08-16] MEDS: Morphine 4mg INJECTION 4 MG/ML INJ IV PRN (00:48)
[2024-08-16] MEDS: ONDANSETRON HCL INJ 2MG/ML 2ML 2 MG/ML VIAL IV PRN (00:49)
[2024-08-16] MEDS: METRONIDAZOLE 500MG/NS 100ML 100 ML IV SCH (01:28)
[2024-08-16] MEDS: SODIUM CHLORIDE 0.9% 1000ML 1,000 ML IV SCH (01:29)
[2024-08-16] MEDS ORDERED: METOPROLOL SUCC25 MG PO (02:27)
[2024-08-16] MEDS ORDERED: DRONABINOL10 MG PO (02:27)
[2024-08-16] MEDS ORDERED: GABAPENTIN800 MG PO (02:27)
[2024-08-16] MEDS: HYDROMORPHONE 1MG/1ML INJ IV PRN (06:18)
[2024-08-16] MEDS ORDERED: IOPAMIDOL 370 MG/ML 100 ML INFUS..BTL INJ ONE (09:09)
[2024-08-16] MEDS: HYDRALAZINE HCL 20 MG/ML VIAL IV PRN (13:01)
[2024-08-16] MEDS: GABAPENTIN 400 MG CAP PO SCH (15:05)
[2024-08-16] MEDS: METOPROLOL TARTRATE 50 MG TAB PO SCH (16:38)
[2024-08-16] MEDS ORDERED: TRAZODONE HCL 50 MG TAB PO SCH (21:00)
[2024-08-16] MEDS: ZOLPIDEM TARTRATE 10 MG TAB PO SCH (21:25)
[2024-08-17] VITALS (11 sets, daily range): BP systolic 102–189; BP diastolic 62–99; PULSE 67–85; RESP 18–20; TEMP 97.6–98.8; O2SAT 98–100
[2024-08-17 06:07] LABS: ALANINE AMINOTRANSFERASE 7 IU/L (0-55); ALBUMIN 3.1 g/dL (3.5-5.0); ALBUMIN/GLOBULIN RATIO 0.9 (0.8-2.0); ALKALINE PHOSPHATASE 55 IU/L (40-150); BILIRUBIN,TOTAL 0.2 mg/dL (0.2-1.2); BLOOD UREA NITROGEN < 5 mg/dL (7-26); BUN/CREATININE RATIO 7 (6-25); CALCIUM 8.1 mg/dL (8.4-10.2); CARBON DIOXIDE 19 mmol/L (22-29); CHLORIDE 109 mmol/L (98-107); EST GLOMERULAR FILTRATION RATE 105 ML/MIN (>=60); GLUCOSE 90 mg/dL (74-118); SODIUM 139 mmol/L (136-145); TOTAL PROTEIN 6.5 g/dL (6.5-8.1)
[2024-08-17 06:31] LABS: BASOPHILS # (AUTO) 0.1 (0.0-0.1); BASOPHILS % 0.8 % (0.0-1.0); EOSINOPHILS # (AUTO) 0.6 (0.0-0.4); EOSINOPHILS % 5.8 % (0.0-6.0); HEMOGLOBIN 9.9 g/dL (12.0-16.0); LYMPHOCYTES # (AUTO) 4.5 (1.0-3.2); LYMPHOCYTES % 44.9 % (18.0-39.1); MEAN CORPUSCULAR HEMOGLOBIN 27.2 pg (28-32); MEAN CORPUSCULAR VOLUME 90.7 fL (81-99); MONOCYTES # (AUTO) 0.7 (0.2-0.8); MONOCYTES % 7.4 % (4.4-11.3); NEUTROPHILS % 40.8 % (38.7-80.0); PLATELET COUNT 293 x10e3/uL (140-360); RED BLOOD COUNT 3.64 x10e6/uL (3.6-5.1); RED CELL DISTRIBUTION WIDTH 14.8 % (11.7-14.4)
[2024-08-17] MEDS: HYDROCODONE/APAP 10MG-325MG TAB PO PRN (08:23)
[2024-08-17] MEDS ORDERED: METOPROLOL SUCCINATE 25 MG TAB XL PO SCH (09:00)
[2024-08-17] MEDS ORDERED: ALTEPLASE RECOMBINANT 2 MG/2 ML VIAL IV PRN (10:45)
[2024-08-17] MEDS ORDERED: WATER STERILE 10 ML VIAL INJ SCH (11:30)
[2024-08-17] MEDS: POTASSIUM CHLORIDE 20MEQ/100ML 100 ML IV ONE (12:59)
[2024-08-17] MEDS: POTASSIUM CHLORIDE 20 MEQ TAB CR PO ONE (15:19)
[2024-08-17] MEDS: FLUCONAZOLE 100 MG TAB PO ONE (15:19)
[2024-08-18] VITALS (8 sets, daily range): BP systolic 144–173; BP diastolic 83–102; PULSE 67–83; RESP 18–20; TEMP 97.4–98.4; O2SAT 99–100
[2024-08-18] MEDS ORDERED: MUPIROCIN 2% OINT 22 GM TUBE TOP SCH (15:30)
[2024-08-18] MEDS: MUPIROCIN 2% OINT 22 GM TUBE TOP SCH (20:00)
[2024-08-19] VITALS (10 sets, daily range): BP systolic 137–178; BP diastolic 79–107; PULSE 58–85; RESP 18–20; TEMP 97.2–98.7; O2SAT 92–100
[2024-08-20] VITALS (7 sets, daily range): BP systolic 144–170; BP diastolic 90–109; PULSE 61–80; RESP 17–18; TEMP 97.8–98.2; O2SAT 97–100
[2024-08-20 00:40] LABS: MAGNESIUM 1.4 MG/DL (1.3-2.1); PHOSPHORUS 3.4 MG/DL (2.3-4.7)
[2024-08-20] MEDS ORDERED: MAGNESIUM SULFATE 2GM/50ML 50 ML IV ONE (04:15)
[2024-08-20] MEDS: MAGNESIUM SULFATE 2GM/50ML 50 ML IV SCH (06:17)
[2024-08-20 06:48] LABS: BASOPHILS % 0.5 % (0.0-1.0); EOSINOPHILS # (AUTO) 0.4 (0.0-0.4); HEMATOCRIT 33.5 % (34.2-44.1); HEMOGLOBIN 10.9 g/dL (12.0-16.0); LYMPHOCYTES # (AUTO) 3.5 (1.0-3.2); LYMPHOCYTES % 40.1 % (18.0-39.1); MEAN CORPUSCULAR HEMOGLOBIN 27.2 pg (28-32); MEAN CORPUSCULAR HGB CONC 32.5 g/dL (31-35); MEAN CORPUSCULAR VOLUME 83.5 fL (81-99); MONOCYTES # (AUTO) 0.6 (0.2-0.8); MONOCYTES % 6.5 % (4.4-11.3); NEUTROPHILS # (AUTO) 4.2 (2.1-6.9); NEUTROPHILS % 47.6 % (38.7-80.0); PLATELET COUNT 521 x10e3/uL (140-360); RED BLOOD COUNT 4.01 x10e6/uL (3.6-5.1); RED CELL DISTRIBUTION WIDTH 14.5 % (11.7-14.4); WHITE BLOOD COUNT 8.77 x10e3/uL (4.8-10.8)
[2024-08-20 07:18] LABS: ANION GAP 13.2 mmol/L (8-16); BLOOD UREA NITROGEN < 5 mg/dL (7-26); CALCIUM 8.8 mg/dL (8.4-10.2); CARBON DIOXIDE 26 mmol/L (22-29); CHLORIDE 105 mmol/L (98-107); CREATININE, SERUM 0.66 mg/dL (0.57-1.11); EST GLOMERULAR FILTRATION RATE 106 ML/MIN (>=60); GLUCOSE 103 mg/dL (74-118); SODIUM 141 mmol/L (136-145)
[2024-08-20 07:28] LABS: BUN/CREATININE RATIO 8 (6-25); POTASSIUM 3.2 mmol/L (3.5-5.1)
[2024-08-20] MEDS: PROMETHAZINE 25MG/ NS 50ML (IV) IV PRN (14:21)
[2024-08-20] MEDS: CIPROFLOXACIN 500 MG TAB PO SCH (17:24)
[2024-08-20] MEDS: PANTOPRAZOLE SOD 40 MG TABEC PO SCH (17:24)
[2024-08-20] MEDS: DOXYCYCLINE HYCLATE TABLET 100 MG TAB PO SCH (17:24)
[2024-08-20] MEDS: HYDROMORPHONE 1MG/1ML INJ IV PRN (17:25)
[2024-08-21] MEDS: POTASSIUM CHLORIDE 10MEQ EA PO ONE ×2 (00:51→13:05)
[2024-08-21] MEDS: HYDROMORPHONE 1MG/1ML INJ IV PRN (01:43)
[2024-08-21 03:12] VITALS: BP 151/90; PULSE 68; RESP 18; TEMP 97.6; O2SAT 96
[2024-08-21 06:58] LABS: BASOPHILS # (AUTO) 0.1 (0.0-0.1); BASOPHILS % 0.9 % (0.0-1.0); EOSINOPHILS # (AUTO) 0.5 (0.0-0.4); EOSINOPHILS % 5.2 % (0.0-6.0); HEMATOCRIT 38.7 % (34.2-44.1); LYMPHOCYTES # (AUTO) 4.4 (1.0-3.2); LYMPHOCYTES % 44.4 % (18.0-39.1); MEAN CORPUSCULAR HEMOGLOBIN 26.7 pg (28-32); MONOCYTES # (AUTO) 0.7 (0.2-0.8); MONOCYTES % 7.4 % (4.4-11.3); NEUTROPHILS # (AUTO) 4.1 (2.1-6.9); NEUTROPHILS % 41.8 % (38.7-80.0); PLATELET COUNT 527 x10e3/uL (140-360); RED CELL DISTRIBUTION WIDTH 14.5 % (11.7-14.4); WHITE BLOOD COUNT 9.88 x10e3/uL (4.8-10.8)
[2024-08-21 07:39] LABS: ANION GAP 16.1 mmol/L (8-16); CALCIUM 8.8 mg/dL (8.4-10.2); CREATININE, SERUM 0.74 mg/dL (0.57-1.11); MAGNESIUM 1.6 MG/DL (1.3-2.1)
[2024-08-21 07:44] LABS: POTASSIUM 3.1 mmol/L (3.5-5.1)
[2024-08-21 07:45] VITALS: BP 160/100; PULSE 75; RESP 20; TEMP 98.1; O2SAT 97
[2024-08-21] MEDS: MAGNESIUM SULFATE 2GM/50ML 50 ML IV ONE (10:29)
[2024-08-21 11:44] VITALS: BP 146/101; PULSE 69; RESP 19; TEMP 97.7; O2SAT 98
[2024-08-21 15:49] VITALS: BP 177/99; PULSE 66; RESP 20; TEMP 98; O2SAT 100
[2024-08-21] MEDS ORDERED: METOPROLOL TART50 MG PO (16:53)
[2024-08-21] MEDS ORDERED: CIPRO500 MG PO (16:53)
[2024-08-21] MEDS ORDERED: DOXYCYCLINE HY100 MG PO (16:53)
[2024-08-21] MEDS ORDERED: PROTONIX40 MG/ML PO (16:53)
[2024-08-21 16:56] VITALS: BP 177/99; PULSE 66
[2024-08-21] MEDS: LABETALOL HCL 5 MG/ML 20ML VIAL IV PRN (16:56)
[2024-08-21] MEDS ORDERED: PROMETHAZINE HC25 M1 PO (17:21)
[2024-08-21] MEDS: HEPARIN 500 UNITS/5ML MDV INJ ONE (17:58)
== END 2024-08-21 18:25 | disposition home or self-care (01) | DRG 394 ==
LOC: ER 18:15 → ERHOLD 08-16 00:04 → MED/SURG 08-16 01:05
PROVIDERS: ADMIT Internal Medicine; ATTEND Internal Medicine
DX: K94.12 Enterostomy infection (principal); T82.868A Thrombosis due to vascular prosthetic devices, implants and grafts, initial encounter; Z16.12 Extended spectrum beta lactamase (ESBL) resistance; K94.19 Other complications of enterostomy; B96.1 Klebsiella pneumoniae [K. pneumoniae] as the cause of diseases classified elsewhere; B37.9 Candidiasis, unspecified; D75.838 Other thrombocytosis; B95.62 Methicillin resistant Staphylococcus aureus infection as the cause of diseases classified elsewhere; E83.42 Hypomagnesemia; K31.84 Gastroparesis; I10 Essential (primary) hypertension; K21.9 Gastro-esophageal reflux disease without esophagitis; E87.6 Hypokalemia; R11.2 Nausea with vomiting, unspecified; R19.7 Diarrhea, unspecified; R53.81 Other malaise; G89.4 Chronic pain syndrome; D64.9 Anemia, unspecified; F41.9 Anxiety disorder, unspecified; G47.00 Insomnia, unspecified; Y83.3 Surgical operation with formation of external stoma as the cause of abnormal reaction of the patient, or of later complication, without mention of misadventure at the time of the procedure; Z90.49 Acquired absence of other specified parts of digestive tract; Z88.6 Allergy status to analgesic agent; Z88.5 Allergy status to narcotic agent; Z88.8 Allergy status to other drugs, medicaments and biological substances
CPT/HCPCS: 36415; 36593; 36598; 74177; 74470; 80048; 80053; 83605; 83735; 84100; 84484; 85025; 87040; 87071; 87186; 87205; 93005; 94799; 99252; 99284; J0360; J1171; J2270; J2405; J2470; J2543; J2550; J2997; J3475; J3480; J7030; Q9967

== ENCOUNTER 2024-09-03 14:39 | Inpatient (IN) | payer OTHER ==
[~2024-09-03] VITALS: Ht 165.1 cm; Wt 86.1 kg
[~2024-09-03 14:39] MED LIST changes: +CIPRO500 MG PO; +DOXYCYCLINE HY100 MG PO; +DRONABINOL10 MG PO; +GABAPENTIN800 MG PO; +METOPROLOL SUCC25 MG PO; +METOPROLOL TART50 MG PO
[2024-09-03 15:09] VITALS: TEMP 99.4
[2024-09-03] MEDS: ONDANSETRON HCL INJ 2MG/ML 2ML 2 MG/ML VIAL IV STA (16:10)
[2024-09-03] MEDS: SODIUM CHLORIDE 0.9% 1000ML 1,000 ML IV ONE (16:11)
[2024-09-03] MEDS: Morphine 2mg Syringe 2 MG/ML SYR IV ONE (16:11)
[2024-09-03 16:12] LABS: BASOPHILS % 0.4 % (0.0-1.0); EOSINOPHILS % 0.5 % (0.0-6.0); LYMPHOCYTES % 21.4 % (18.0-39.1); MONOCYTES % 3.2 % (4.4-11.3); NEUTROPHILS % 74.1 % (38.7-80.0); RED CELL DISTRIBUTION WIDTH 14.9 % (11.7-14.4)
[2024-09-03 16:39] LABS: EST GLOMERULAR FILTRATION RATE 96.0 ML/MIN (>=60)
[2024-09-03] MEDS ORDERED: IOPAMIDOL 370 MG/ML 100 ML INFUS..BTL INJ ONE (16:42)
[2024-09-03] MEDS: MAGNESIUM SULFATE 2GM/50ML 50 ML IV ONE (18:33)
[2024-09-03] MEDS: KCL 20 MEQ PACKET/ ORAL SOLN PO STA (18:36)
[2024-09-03] MEDS: HALOPERIDOL LACTATE 5 MG/ML VIAL IV ONE (18:36)
[2024-09-03 19:36] VITALS: PULSE 104; RESP 18
[2024-09-03 20:48] VITALS: BP 170/92; PULSE 93; RESP 21; TEMP 98.7; O2SAT 100
[2024-09-03 21:00] VITALS: BP 140/93; PULSE 93; RESP 21; TEMP 98.7; O2SAT 98
[2024-09-03] MEDS: SODIUM CHLORIDE 0.9% 1000ML 1,000 ML IV SCH (21:33)
[2024-09-03] MEDS: METRONIDAZOLE 500MG/NS 100ML 100 ML IV SCH (21:33)
[2024-09-03] MEDS: ONDANSETRON HCL INJ 2MG/ML 2ML 2 MG/ML VIAL IV PRN (21:33)
[2024-09-03] MEDS: HYDROMORPHONE 1MG/1ML INJ IV PRN (21:34)
[2024-09-03] MEDS ORDERED: AMBIEN10 MG PO (21:44)
[2024-09-03] MEDS ORDERED: PERCOCET 10-321 EACH PO (21:46)
[2024-09-03] MEDS ORDERED: XANAX0.5 MG PO (21:46)
[2024-09-03] MEDS ORDERED: NON-FORMULARY MEDICATION (Acetaminophen With Codeine (Tylenol With Codeine #4 Tablet) 1 TA PO PRN (22:00)
[2024-09-03] MEDS: ZOLPIDEM TARTRATE 10 MG TAB PO PRN (22:32)
[2024-09-03] MEDS: GABAPENTIN 300 MG CAP PO SCH (22:32)
[2024-09-03 22:40] VITALS: BP 179/89; PULSE 84; RESP 18; TEMP 99.3; O2SAT 100
[2024-09-03] MEDS: LABETALOL HCL 5 MG/ML 20ML VIAL IV PRN (22:47)
[2024-09-03] MEDS: OXYCODONE/ACETAMINOPHEN 5-325 1 EACH TABLET PO PRN (22:52)
[2024-09-04] MEDS: BUTALB PO SCH
[2024-09-04] MEDS: [UNRECOGNIZED DRUG - OTHER] PO SCH
[2024-09-04] MEDS: CAFFEINE PO SCH
[2024-09-04] MEDS: ACETAMINOPHEN PO SCH
[2024-09-04 00:06] VITALS: BP 166/83; PULSE 81
[2024-09-04 02:44] LABS: LEUKOCYTE ESTERASE ,URINE NEGATIVE (NEGATIVE); PROTEIN,URINE DIPSTICK NEGATIVE (NEGATIVE); URINE UROBILINOGEN 0.2 mg/dL (0.2 - 1)
[2024-09-04 02:54] LABS: EPITHELIAL CELLS,URINE MODERATE /LPF
[2024-09-04 04:00] VITALS: BP 157/95; PULSE 80; RESP 20; TEMP 98.3; O2SAT 98
[2024-09-04 06:37] LABS: BASOPHILS % 0.5 % (0.0-1.0); EOSINOPHILS % 2.8 % (0.0-6.0); LYMPHOCYTES % 46.5 % (18.0-39.1); MONOCYTES % 5.7 % (4.4-11.3); NEUTROPHILS % 44.3 % (38.7-80.0); RED CELL DISTRIBUTION WIDTH 15.2 % (11.7-14.4)
[2024-09-04 06:53] LABS: EST GLOMERULAR FILTRATION RATE 100 ML/MIN (>=60); PHOSPHORUS 2.2 MG/DL (2.3-4.7)
[2024-09-04 08:14] VITALS: BP 162/83; PULSE 89; RESP 18; TEMP 98.2; O2SAT 100
[2024-09-04] MEDS: METOCLOPRAMIDE HCL 10 MG TAB PO SCH (08:49)
[2024-09-04] MEDS: PANTOPRAZOLE SOD 40 MG TABEC PO SCH (08:50)
[2024-09-04] MEDS: METOPROLOL TARTRATE 50 MG TAB PO SCH (08:50)
[2024-09-04] MEDS: ALPRAZOLAM 0.5 MG TAB PO PRN (08:56)
[2024-09-04] MEDS: TIZANIDINE HCL 4 MG TAB PO PRN (08:56)
[2024-09-04] MEDS: MAGNESIUM SULFATE 2GM/50ML 50 ML IV ONE (08:57)
[2024-09-04] MEDS ORDERED: DRONABINOL 2.5MG PO PRN (09:00)
[2024-09-04] MEDS ORDERED: POTASSIUM PHOSPHATE 15 MM in SODIUM CHLORIDE 0.9% 250ML 250 ML IV ONE (09:00)
[2024-09-04] MEDS ORDERED: NURTEC ODT75 MG (10:20)
[2024-09-04] MEDS: POTASSIUM PHOSPHATE 15 MM in SODIUM CHLORIDE 0.9% 250ML 250 ML IV ONE (10:47)
[2024-09-04 14:24] VITALS: BP 92/72; PULSE 61; RESP 18; TEMP 98.1; O2SAT 100
[2024-09-04] MEDS: HYDROMORPHONE 1MG/1ML INJ IV PRN (16:55)
[2024-09-04 18:22] VITALS: BP 145/85; PULSE 74; RESP 18; TEMP 98.2; O2SAT 98
[2024-09-04 20:00] VITALS: BP 158/84; PULSE 78; RESP 20; TEMP 98.8; O2SAT 100
[2024-09-05] VITALS (7 sets, daily range): BP systolic 157–174; BP diastolic 90–104; PULSE 74–83; RESP 17–20; TEMP 97.9–98.3; O2SAT 93–99
[2024-09-05] MEDS: POTASSIUM CHLORIDE 10MEQ EA PO ONE ×3 (02:40→13:16)
[2024-09-05 05:42] LABS: BASOPHILS % 0.6 % (0.0-1.0); EOSINOPHILS % 4.8 % (0.0-6.0); LYMPHOCYTES % 47.7 % (18.0-39.1); MONOCYTES % 6.0 % (4.4-11.3); NEUTROPHILS % 40.6 % (38.7-80.0); RED CELL DISTRIBUTION WIDTH 15.8 % (11.7-14.4)
[2024-09-05 06:12] LABS: EST GLOMERULAR FILTRATION RATE 88 ML/MIN (>=60); PHOSPHORUS 2.7 MG/DL (2.3-4.7)
[2024-09-05] MEDS: MAGNESIUM SULFATE 2GM/50ML 50 ML IV ONE (08:40)
[2024-09-05] MEDS: MAGNESIUM SULF 1GRAM/DEXTROSE 100 ML IV ONE (12:10)
[2024-09-05] MEDS ORDERED: ELIQUIS5 MG PO (18:29)
[2024-09-05] MEDS: APIXABAN 5 MG TABLET PO SCH (22:48)
[2024-09-06] VITALS (7 sets, daily range): BP systolic 116–165; BP diastolic 78–98; PULSE 68–81; RESP 18; TEMP 97.9–98.3; O2SAT 96–98
[2024-09-06 05:48] LABS: BASOPHILS % 0.6 % (0.0-1.0); EOSINOPHILS % 5.0 % (0.0-6.0); LYMPHOCYTES % 41.5 % (18.0-39.1); MONOCYTES % 6.1 % (4.4-11.3); NEUTROPHILS % 46.5 % (38.7-80.0); RED CELL DISTRIBUTION WIDTH 15.6 % (11.7-14.4)
[2024-09-06 06:13] LABS: EST GLOMERULAR FILTRATION RATE 98 ML/MIN (>=60)
[2024-09-06 08:33] LABS: EOSINOPHILS % (MANUAL) 4 % (0-7); LYMPHOCYTES % (MANUAL) 47 % (19-48); MONOCYTES % (MANUAL) 2 % (3.4-9.0); NEUTROPHILS % (MANUAL) 47 % (40-74); PLATELET ESTIMATE ADEQUATE
[2024-09-06 08:34] LABS: PLATELET MORPHOLOGY COMMENT NORMAL; RBC MORPHOLOGY COMMENT NORMAL
[2024-09-06] MEDS: MAGNESIUM SULF 1GRAM/DEXTROSE 100 ML IV ONE (08:47)
[2024-09-06] MEDS: POTASSIUM CHLORIDE 10MEQ EA PO ONE (11:57)
[2024-09-06] MEDS: HYDROMORPHONE 2MG/ML IV PRN (16:04)
[2024-09-07 07:45] VITALS: BP 145/98; PULSE 76; RESP 18; TEMP 98; O2SAT 98
[2024-09-07 11:36] VITALS: BP 147/97; PULSE 81; RESP 18; TEMP 97.6; O2SAT 96
[2024-09-07 15:49] VITALS: BP 140/91; PULSE 79; RESP 18; TEMP 97.6; O2SAT 96
[2024-09-07 20:00] VITALS: BP 121/71; PULSE 83; RESP 20; TEMP 98.6; O2SAT 92
[2024-09-08] VITALS (7 sets, daily range): BP systolic 126–154; BP diastolic 61–98; PULSE 72–83; RESP 18–20; TEMP 97.4–98.4; O2SAT 96–100
[2024-09-08] MEDS: PROMETHAZINE HCL 25 MG TAB PO PRN (12:24)
[2024-09-08] MEDS: FLUCONAZOLE 100 MG TAB PO ONE (21:27)
[2024-09-09 03:41] VITALS: BP 131/88; PULSE 83; RESP 18; O2SAT 94
[2024-09-09 08:00] VITALS: BP 102/74; PULSE 84; RESP 18; TEMP 97.8; O2SAT 97
[2024-09-09 12:00] VITALS: BP 117/80; PULSE 91; RESP 19; TEMP 97.7; O2SAT 98
[2024-09-09 12:59] LABS: BASOPHILS % 0.7 % (0.0-1.0); EOSINOPHILS % 5.5 % (0.0-6.0); LYMPHOCYTES % 25.8 % (18.0-39.1); MONOCYTES % 8.7 % (4.4-11.3); NEUTROPHILS % 59.1 % (38.7-80.0); RED CELL DISTRIBUTION WIDTH 16.2 % (11.7-14.4)
[2024-09-09 13:14] LABS: EST GLOMERULAR FILTRATION RATE 101.0 ML/MIN (>=60)
[2024-09-09 16:00] VITALS: BP 112/76; PULSE 95; RESP 18; TEMP 98.2; O2SAT 98
[2024-09-09 20:00] VITALS: BP 139/89; PULSE 104; RESP 17; TEMP 96.2; O2SAT 98
[2024-09-09] MEDS: LORATADINE 10 MG TAB PO PRN (21:07)
[2024-09-09] MEDS: MAGNESIUM SULFATE 2GM/50ML 50 ML IV ONE (21:08)
[2024-09-09] MEDS: POTASSIUM CHLORIDE 20 MEQ TAB CR PO STA (21:08)
[2024-09-10] VITALS: BP 144/88; PULSE 85; RESP 16; TEMP 97.2; O2SAT 93
[2024-09-10 04:21] VITALS: BP 122/80; PULSE 92
[2024-09-10 08:00] VITALS: BP 134/92; PULSE 98; RESP 20; TEMP 98.1; O2SAT 98
[2024-09-10 09:15] VITALS: BP 134/92; PULSE 98; RESP 20; TEMP 98.1; O2SAT 98
[2024-09-10 12:00] VITALS: BP 117/82; PULSE 79; RESP 18; TEMP 98.4; O2SAT 98
[2024-09-10] MEDS: HEPARIN 500 UNITS/5ML MDV INJ ONE (17:07)
[2024-09-10 17:08] VITALS: BP 125/95; PULSE 85; RESP 18; TEMP 98.2; O2SAT 96
== END 2024-09-10 17:30 | disposition home or self-care (01) | DRG 391 ==
LOC: ER 15:00 → ERHOLD 18:34 → MED/SURG3 20:32 → OBSVTOIN 09-05 10:24 → MED/SURG2 09-05 16:31
PROVIDERS: ADMIT Internal Medicine; ATTEND Internal Medicine
DX: K52.9 Noninfective gastroenteritis and colitis, unspecified (principal); E43 Unspecified severe protein-calorie malnutrition; K50.90 Crohn's disease, unspecified, without complications; K31.84 Gastroparesis; I10 Essential (primary) hypertension; K21.9 Gastro-esophageal reflux disease without esophagitis; G43.909 Migraine, unspecified, not intractable, without status migrainosus; K76.0 Fatty (change of) liver, not elsewhere classified; E66.9 Obesity, unspecified; G89.4 Chronic pain syndrome; F41.8 Other specified anxiety disorders; E86.0 Dehydration; E87.6 Hypokalemia; E83.39 Other disorders of phosphorus metabolism; G47.00 Insomnia, unspecified; E83.42 Hypomagnesemia; M79.2 Neuralgia and neuritis, unspecified; B37.31 Acute candidiasis of vulva and vagina; D64.9 Anemia, unspecified; Z79.01 Long term (current) use of anticoagulants; Z86.711 Personal history of pulmonary embolism; Z88.6 Allergy status to analgesic agent; Z88.8 Allergy status to other drugs, medicaments and biological substances; Z68.31 Body mass index [BMI] 31.0-31.9, adult
CPT/HCPCS: 36415; 74177; 80048; 80053; 81001; 83690; 83735; 84100; 85025; 93005; 99252; 99284; G0378; J1171; J1630; J2270; J2405; J2470; J3475; J7030; J7050; Q9967

== ENCOUNTER 2024-09-24 01:39 | Inpatient (IN) | payer OTHER ==
[~2024-09-24] VITALS: Ht 165.1 cm; Wt 81.6 kg
[2024-09-24] VITALS (11 sets, daily range): BP systolic 149–169; BP diastolic 96–112; PULSE 78–94; RESP 18–20; TEMP 97.8–98.6; O2SAT 97–100
[~2024-09-24 01:39] MED LIST changes: +AMBIEN10 MG PO; +ELIQUIS5 MG PO; +NURTEC ODT75 MG; +PERCOCET 10-321 EACH PO; +XANAX0.5 MG PO
[2024-09-24] MEDS: ONDANSETRON HCL INJ 2MG/ML 2ML 2 MG/ML VIAL IV STA ×2 (02:19→04:49)
[2024-09-24 02:23] LABS: BASOPHILS % 0.5 % (0.0-1.0); EOSINOPHILS % 1.5 % (0.0-6.0); LYMPHOCYTES % 35.7 % (18.0-39.1); MONOCYTES % 5.3 % (4.4-11.3); NEUTROPHILS % 56.5 % (38.7-80.0); RED CELL DISTRIBUTION WIDTH 16.4 % (11.7-14.4)
[2024-09-24 02:44] LABS: EST GLOMERULAR FILTRATION RATE 93.0 ML/MIN (>=60)
[2024-09-24] MEDS: Morphine 4mg INJECTION 4 MG/ML INJ IV ONE (03:46)
[2024-09-24] MEDS ORDERED: SODIUM CHLORIDE FLUSH 10 ML SYR INJ PRN (04:00)
[2024-09-24] MEDS: Morphine 4mg INJECTION 4 MG/ML INJ IV PRN (07:25)
[2024-09-24] MEDS: ONDANSETRON HCL INJ 2MG/ML 2ML 2 MG/ML VIAL IV PRN (07:25)
[2024-09-24] MEDS ORDERED: PERCOCET 5-3251 EACH PO (09:04)
[2024-09-24] MEDS: GABAPENTIN 300 MG CAP PO SCH (16:50)
[2024-09-24] MEDS: PANTOPRAZOLE SOD 40 MG TABEC PO SCH (16:50)
[2024-09-24] MEDS: HYDROMORPHONE 1MG/1ML INJ IV PRN (16:51)
[2024-09-24] MEDS: METOPROLOL SUCCINATE 25 MG TAB XL PO SCH (16:51)
[2024-09-24] MEDS ORDERED: GABAPENTIN 300 MG CAP PO SCH (21:00)
[2024-09-24] MEDS: ZOLPIDEM TARTRATE 10 MG TAB PO SCH (23:12)
[2024-09-25] VITALS: BP 129/91; PULSE 90; RESP 16; TEMP 98.1; O2SAT 97
[2024-09-25] MEDS ORDERED: LABETALOL HCL 5 MG/ML 20ML VIAL IV PRN (05:00)
[2024-09-25 05:54] LABS: BASOPHILS % 0.6 % (0.0-1.0); EOSINOPHILS % 3.2 % (0.0-6.0); LYMPHOCYTES % 47.8 % (18.0-39.1); MONOCYTES % 5.5 % (4.4-11.3); NEUTROPHILS % 42.6 % (38.7-80.0); RED CELL DISTRIBUTION WIDTH 17.2 % (11.7-14.4)
[2024-09-25 06:06] VITALS: BP 148/102; PULSE 92; RESP 18; TEMP 97.7; O2SAT 98
[2024-09-25 06:09] LABS: CHOL/HDL RATIO 5.0 (3.0-3.6); EST GLOMERULAR FILTRATION RATE 87.0 ML/MIN (>=60); LDL CHOLESTEROL 204.0 MG/DL (60-130)
[2024-09-25 08:00] VITALS: BP 135/97; PULSE 85; RESP 20; TEMP 97.9; O2SAT 98
[2024-09-25] MEDS: METOPROLOL TARTRATE 50 MG TAB PO SCH ×2 (09:10→20:48)
[2024-09-25 12:00] VITALS: BP 136/91; PULSE 71; RESP 19; TEMP 98.1; O2SAT 98
[2024-09-25] MEDS: OXYCODONE/ACETAMINOPHEN 5-325 1 EACH TABLET PO PRN (14:28)
[2024-09-25 15:07] LABS: PHOSPHORUS 4.4 MG/DL (2.3-4.7)
[2024-09-25 16:00] VITALS: BP 139/86; PULSE 80; RESP 20; TEMP 98; O2SAT 98
[2024-09-25] MEDS: MAGNESIUM SULF 1GRAM/DEXTROSE 100 ML IV ONE (16:27)
[2024-09-25] MEDS: HYDROMORPHONE 1MG/1ML INJ IV PRN (16:38)
[2024-09-25] MEDS: POTASSIUM CHLORIDE 10MEQ EA PO ONE (17:32)
[2024-09-25] MEDS ORDERED: RIMEGEPANT SULFATE 75 MG PO PRN (18:45)
[2024-09-25] MEDS ORDERED: TIZANIDINE HCL 4 MG TAB PO PRN (18:45)
[2024-09-25] MEDS ORDERED: PROMETHAZINE HCL 25 MG TAB PO PRN (18:45)
[2024-09-25] MEDS: DRONABINOL 2.5MG PO SCH (19:19)
[2024-09-25 19:40] LABS: LEUKOCYTE ESTERASE ,URINE TRACE (NEGATIVE); PROTEIN,URINE DIPSTICK NEGATIVE (NEGATIVE); URINE UROBILINOGEN 0.2 mg/dL (0.2 - 1)
[2024-09-25 19:51] LABS: EPITHELIAL CELLS,URINE MANY /LPF; WBC,URINE (MAN) 0-5 /HPF (0-5)
[2024-09-25 20:00] VITALS: BP 139/93; PULSE 70; RESP 20; TEMP 97.3; O2SAT 98
[2024-09-26] VITALS (9 sets, daily range): BP systolic 103–140; BP diastolic 71–92; PULSE 65–77; RESP 18–21; TEMP 97.3–98.4; O2SAT 90–97
[2024-09-26] MEDS ORDERED: ACETAMIN/BUTALBITAL/CAFFEINE TAB PO PRN
[2024-09-26 06:04] LABS: BASOPHILS % 0.7 % (0.0-1.0); EOSINOPHILS % 2.9 % (0.0-6.0); LYMPHOCYTES % 44.4 % (18.0-39.1); MONOCYTES % 6.3 % (4.4-11.3); NEUTROPHILS % 45.5 % (38.7-80.0); RED CELL DISTRIBUTION WIDTH 16.9 % (11.7-14.4)
[2024-09-26 06:36] LABS: EST GLOMERULAR FILTRATION RATE 83.0 ML/MIN (>=60); PHOSPHORUS 4.0 MG/DL (2.3-4.7)
[2024-09-26] MEDS: APIXABAN 5 MG TABLET PO SCH (08:27)
[2024-09-26] MEDS: ALPRAZOLAM 0.5 MG TAB PO PRN (11:50)
[2024-09-27] VITALS (8 sets, daily range): BP systolic 94–137; BP diastolic 45–90; PULSE 72–101; RESP 18–20; TEMP 96.3–97.8; O2SAT 95–100
[2024-09-27 06:29] LABS: BASOPHILS % 0.5 % (0.0-1.0); EOSINOPHILS % 3.6 % (0.0-6.0); LYMPHOCYTES % 35.6 % (18.0-39.1); MONOCYTES % 5.7 % (4.4-11.3); NEUTROPHILS % 54.3 % (38.7-80.0); RED CELL DISTRIBUTION WIDTH 16.8 % (11.7-14.4)
[2024-09-27 08:49] LABS: EOSINOPHILS % (MANUAL) 2 % (0-7); LYMPHOCYTES % (MANUAL) 33 % (19-48); MONOCYTES % (MANUAL) 4 % (3.4-9.0); NEUTROPHILS % (MANUAL) 60 % (40-74); PLATELET ESTIMATE ADEQUATE; PLATELET MORPHOLOGY COMMENT NORMAL; REACTIVE LYMPHOCYTES 1
[2024-09-27] MEDS: SODIUM CHLORIDE 0.9% 250ML 250 ML ONE (18:56)
[2024-09-27] MEDS: CEFTRIAXONE 2 GM in SODIUM CHLORIDE 0.9% 100 ML IV SCH (18:56)
[2024-09-27] MEDS: OXYCODONE/ACETAMINOPHEN 5-325 1 EACH TABLET PO PRN (18:58)
[2024-09-28 00:43] VITALS: BP 115/85; PULSE 91; RESP 18; TEMP 96.9; O2SAT 97
[2024-09-28 08:46] VITALS: BP 118/88; PULSE 103; RESP 18; TEMP 97.9; O2SAT 100
[2024-09-28 16:22] VITALS: BP 126/80; PULSE 74; RESP 19; TEMP 97.8; O2SAT 95
[2024-09-28 20:00] VITALS: BP 118/79; PULSE 81; RESP 18; TEMP 97.1; O2SAT 98
[2024-09-29 09:13] VITALS: BP 125/86; PULSE 101; RESP 20; TEMP 98.1; O2SAT 100
[2024-09-29 12:49] VITALS: BP 124/79; PULSE 103; RESP 18; TEMP 98; O2SAT 96
[2024-09-29] MEDS: HYDROMORPHONE 2MG/ML IV PRN (13:40)
[2024-09-29 17:09] VITALS: BP 147/98; PULSE 119; RESP 20; TEMP 98; O2SAT 100
[2024-09-29] MEDS ORDERED: FLUCONAZOLE100 MG PO (17:33)
[2024-09-29] MEDS: HEPARIN 500 UNITS/5ML MDV INJ ONE (19:52)
== END 2024-09-29 20:13 | disposition home or self-care (01) | DRG 392 ==
LOC: ER 01:46 → ERHOLD 03:49 → MED/SURG2 05:14 → OBSVTOIN 09-25 09:17
PROVIDERS: ADMIT Internal Medicine; ATTEND Internal Medicine
DX: K31.84 Gastroparesis (principal); I27.82 Chronic pulmonary embolism; N39.0 Urinary tract infection, site not specified; Z16.12 Extended spectrum beta lactamase (ESBL) resistance; Z16.24 Resistance to multiple antibiotics; B96.1 Klebsiella pneumoniae [K. pneumoniae] as the cause of diseases classified elsewhere; I10 Essential (primary) hypertension; R00.2 Palpitations; E87.6 Hypokalemia; E83.42 Hypomagnesemia; D64.9 Anemia, unspecified; D75.839 Thrombocytosis, unspecified; K21.9 Gastro-esophageal reflux disease without esophagitis; G47.00 Insomnia, unspecified; G89.4 Chronic pain syndrome; R07.89 Other chest pain; Z79.01 Long term (current) use of anticoagulants; Z90.49 Acquired absence of other specified parts of digestive tract; Z88.6 Allergy status to analgesic agent; Z88.5 Allergy status to narcotic agent
CPT/HCPCS: 36415; 71045; 80048; 80053; 80061; 81001; 82550; 83735; 83880; 84100; 84484; 85025; 87086; 87186; 93005; 94799; 99284; G0378; J0696; J1171; J2185; J2270; J2405; J2470; J3475; J7050

== ENCOUNTER 2024-10-10 18:21 | Emergency (ER) | payer OTHER ==
[~2024-10-10] VITALS: Ht 165.1 cm; Wt 81.6 kg
[~2024-10-10 18:21] MED LIST changes: +PERCOCET 5-3251 EACH PO
[2024-10-10 19:17] LABS: BASOPHILS % 0.3 % (0.0-1.0); EOSINOPHILS % 2.2 % (0.0-6.0); LYMPHOCYTES % 29.1 % (18.0-39.1); MONOCYTES % 5.2 % (4.4-11.3); NEUTROPHILS % 62.9 % (38.7-80.0); RED CELL DISTRIBUTION WIDTH 16.5 % (11.7-14.4)
[2024-10-10 19:34] LABS: EST GLOMERULAR FILTRATION RATE 96.0 ML/MIN (>=60)
[2024-10-10] MEDS: ONDANSETRON HCL INJ 2MG/ML 2ML 2 MG/ML VIAL IV STA (21:05)
[2024-10-10] MEDS: DICYCLOMINE HCL 20 MG/2 ML VIAL IM ONE (21:05)
[2024-10-10] MEDS: KETOROLAC TROMETHAMINE 30 MG/ML VIAL IV STA (21:06)
[2024-10-10] MEDS ORDERED: FENTANYL CITRATE/PF 100MCG/2 ML INJ IV PRN (21:15)
[2024-10-10 21:48] LABS: LEUKOCYTE ESTERASE ,URINE NEGATIVE (NEGATIVE); PROTEIN,URINE DIPSTICK NEGATIVE (NEGATIVE); URINE UROBILINOGEN 0.2 mg/dL (0.2 - 1)
[2024-10-10 22:21] LABS: WBC,URINE (MAN) 0-5 /HPF (0-5)
[2024-10-10 22:22] LABS: EPITHELIAL CELLS,URINE MANY /LPF
[2024-10-10] MEDS: FENTANYL CITRATE/PF 100MCG/2 ML INJ IV STA (23:36)
[2024-10-10] MEDS: HEPARIN 500 UNITS/5ML MDV INJ ONE (23:47)
[2024-10-10 23:52] VITALS: PULSE 95; RESP 16; TEMP 98.7; O2SAT 97
== END 2024-10-11 00:07 | disposition home or self-care (01) ==
LOC: ER 19:12
DX: R10.31 Right lower quadrant pain (principal); K31.84 Gastroparesis; K21.9 Gastro-esophageal reflux disease without esophagitis; R94.31 Abnormal electrocardiogram [ECG] [EKG]; Z87.19 Personal history of other diseases of the digestive system
CPT/HCPCS: 36415; 71045; 74177; 80053; 81001; 83690; 84484; 85025; 93005; 99284; J0500; J1885; J2405; J2470; J3010

== ENCOUNTER 2024-10-29 12:44 | Inpatient (IN) | payer OTHER ==
[~2024-10-29] VITALS: Ht 165.1 cm; Wt 81.6 kg
[2024-10-29 14:32] LABS: BASOPHILS % 0.2 % (0.0-1.0); EOSINOPHILS % 0.1 % (0.0-6.0); LYMPHOCYTES % 19.4 % (18.0-39.1); MONOCYTES % 4.7 % (4.4-11.3); NEUTROPHILS % 75.3 % (38.7-80.0); RED CELL DISTRIBUTION WIDTH 16.9 % (11.7-14.4)
[2024-10-29] MEDS: ONDANSETRON HCL INJ 2MG/ML 2ML 2 MG/ML VIAL IV STA (14:36)
[2024-10-29] MEDS: SODIUM CHLORIDE 0.9% 1000ML 1,000 ML IV STA ×2 (14:37)
[2024-10-29 14:43] LABS: INR 1.0
[2024-10-29 14:51] LABS: EST GLOMERULAR FILTRATION RATE 105.0 ML/MIN (>=60)
[2024-10-29] MEDS: Morphine 4mg INJECTION 4 MG/ML INJ IV STA (15:17)
[2024-10-29] MEDS ORDERED: LABETALOL HCL 20 ML ONE (16:25)
[2024-10-29] MEDS: LABETALOL HCL 20 MG/4 ML SYRINGE IV STA (16:29)
[2024-10-29 16:38] LABS: AMPHETAMINES SCREEN,URINE NEGATIVE (NEGATIVE); CANNABINOIDS SCREEN,URINE NEGATIVE (NEGATIVE); COCAINE SCREEN,URINE NEGATIVE (NEGATIVE); LEUKOCYTE ESTERASE ,URINE NEGATIVE (NEGATIVE); METHADONE SCREEN, URINE NEGATIVE (NEGATIVE); OPIATES SCREEN,URINE POSITIVE (NEGATIVE); PROTEIN,URINE DIPSTICK NEGATIVE (NEGATIVE); URINE UROBILINOGEN 0.2 mg/dL (0.2 - 1)
[2024-10-29 16:39] LABS: EPITHELIAL CELLS,URINE FEW /LPF; WBC,URINE (MAN) 0-5 /HPF (0-5)
[2024-10-29] MEDS ORDERED: Morphine 4mg INJECTION 4 MG/ML INJ IV PRN (17:00)
[2024-10-29] MEDS ORDERED: LABETALOL HCL 5 MG/ML 20ML VIAL IV PRN (17:15)
[2024-10-29] MEDS: METOPROLOL TARTRATE 50 MG TAB PO SCH (18:16)
[2024-10-29] MEDS: SODIUM CHLORIDE 0.9% 1000ML 1,000 ML IV SCH (18:17)
[2024-10-29] MEDS: ONDANSETRON HCL INJ 2MG/ML 2ML 2 MG/ML VIAL IV PRN (18:18)
[2024-10-29] MEDS: Morphine 4mg INJECTION 4 MG/ML INJ IV PRN (18:18)
[2024-10-29 18:27] VITALS: PULSE 89; RESP 16; TEMP 98.4
[2024-10-29 19:51] VITALS: BP 172/98; PULSE 86; RESP 20; TEMP 97.8; O2SAT 98
[2024-10-29] MEDS ORDERED: IOPAMIDOL 370 MG/ML 100 ML INFUS..BTL INJ ONE (22:04)
[2024-10-29 23:21] VITALS: BP 141/86; PULSE 71; RESP 18; TEMP 97.6; O2SAT 98
[2024-10-30] VITALS (8 sets, daily range): BP systolic 121–172; BP diastolic 76–98; PULSE 61–86; RESP 15–20; TEMP 97–98.1; O2SAT 95–99
[2024-10-30 04:17] LABS: BASOPHILS % 0.4 % (0.0-1.0); EOSINOPHILS % 1.7 % (0.0-6.0); LYMPHOCYTES % 47.9 % (18.0-39.1); MONOCYTES % 5.8 % (4.4-11.3); NEUTROPHILS % 43.9 % (38.7-80.0); RED CELL DISTRIBUTION WIDTH 17.3 % (11.7-14.4)
[2024-10-30 04:35] LABS: CHOL/HDL RATIO 5.0 (3.0-3.6); EST GLOMERULAR FILTRATION RATE 101.0 ML/MIN (>=60); LDL CHOLESTEROL 138.0 MG/DL (60-130)
[2024-10-30] MEDS: MAGNESIUM SULFATE 2GM/50ML 50 ML IV ONE ×2 (05:31→06:24)
[2024-10-30] MEDS: POTASSIUM CHLORIDE 20MEQ/100ML 100 ML IV ONE ×3 (10:49→14:20)
[2024-10-30 12:05] LABS: BAND NEUTROPHILS % (MANUAL) 3 %; BASOPHILS % (MANUAL) 1 % (0-1.5); LYMPHOCYTES % (MANUAL) 53 % (19-48); MONOCYTES % (MANUAL) 2 % (3.4-9.0); NEUTROPHILS % (MANUAL) 33 % (40-74); REACTIVE LYMPHOCYTES 8
[2024-10-30 12:07] LABS: PLATELET ESTIMATE ADEQUATE; PLATELET MORPHOLOGY COMMENT NORMAL; RBC MORPHOLOGY COMMENT NORMAL
[2024-10-30] MEDS: HYDROMORPHONE 1MG/1ML INJ IV PRN (14:20)
[2024-10-30] MEDS ORDERED: GABAPENTIN 300 MG CAP PO SCH (15:00)
[2024-10-30] MEDS: GABAPENTIN 300 MG CAP PO SCH (15:34)
[2024-10-30] MEDS: PANTOPRAZOLE SOD 40 MG TABEC PO SCH (15:34)
[2024-10-30] MEDS ORDERED: APIXABAN 5 MG TABLET PO SCH (17:00)
[2024-10-30] MEDS: ZOLPIDEM TARTRATE 10 MG TAB PO SCH (20:35)
[2024-10-30] MEDS ORDERED: METOPROLOL TARTRATE 50 MG TAB PO SCH (21:00)
[2024-10-31] VITALS (7 sets, daily range): BP systolic 120–143; BP diastolic 78–92; PULSE 63–84; RESP 17–20; TEMP 98–98.9; O2SAT 92–100
[2024-10-31] MEDS: TIZANIDINE HCL 4 MG TAB PO PRN (12:14)
[2024-10-31 15:52] LABS: EST GLOMERULAR FILTRATION RATE 105.0 ML/MIN (>=60)
[2024-10-31] MEDS: OXYCODONE/ACETAMINOPHEN 5-325 1 EACH TABLET PO PRN (17:28)
[2024-10-31] MEDS: NYSTATIN SUSPENSION 5 ML UDC PO SCH (21:39)
[2024-11-01] VITALS (7 sets, daily range): BP systolic 115–154; BP diastolic 57–88; PULSE 63–84; RESP 18–20; TEMP 97.7–98.9; O2SAT 92–98
[2024-11-01] MEDS: PROMETHAZINE HCL 25 MG TAB PO PRN (00:03)
[2024-11-01] MEDS: ALPRAZOLAM 0.5 MG TAB PO PRN (00:03)
[2024-11-01] MEDS: FLUCONAZOLE 100 MG TAB PO SCH (07:34)
[2024-11-01 07:45] LABS: BASOPHILS % 0.5 % (0.0-1.0); EOSINOPHILS % 4.0 % (0.0-6.0); LYMPHOCYTES % 35.2 % (18.0-39.1); MONOCYTES % 6.4 % (4.4-11.3); NEUTROPHILS % 53.6 % (38.7-80.0); RED CELL DISTRIBUTION WIDTH 16.6 % (11.7-14.4)
[2024-11-01 07:58] LABS: EST GLOMERULAR FILTRATION RATE 95.0 ML/MIN (>=60)
[2024-11-02 08:26] VITALS: BP 125/77; PULSE 69; RESP 18; TEMP 98; O2SAT 93
[2024-11-02 09:01] VITALS: BP 125/77; PULSE 69; RESP 18; TEMP 98; O2SAT 93
[2024-11-02 11:36] VITALS: BP 102/61; PULSE 64; RESP 18; TEMP 98.7; O2SAT 94
[2024-11-02] MEDS: HYDROMORPHONE 1MG/1ML INJ IV PRN (14:50)
[2024-11-02 16:19] VITALS: BP 125/69; PULSE 65; RESP 18; TEMP 98; O2SAT 98
[2024-11-02 20:00] VITALS: BP_SYST 125; BP_SYST 163; BP_DIAS 58; BP_DIAS 75; PULSE 65; RESP 17; TEMP 98.7; O2SAT 96
[2024-11-02 21:00] VITALS: BP 125/75; PULSE 65; RESP 17; TEMP 98.7; O2SAT 96
[2024-11-03] VITALS (8 sets, daily range): BP systolic 101–122; BP diastolic 55–76; PULSE 68–81; RESP 16–19; TEMP 97.3–98.2; O2SAT 94–99
[2024-11-04 00:36] VITALS: BP 118/76; PULSE 75; RESP 12; TEMP 98.6; O2SAT 95
[2024-11-04 04:52] VITALS: BP 117/79; PULSE 84; RESP 17; TEMP 98.5; O2SAT 97
[2024-11-04 09:56] VITALS: BP 126/84; PULSE 88; RESP 18; TEMP 98.6; O2SAT 100
[2024-11-04 12:24] VITALS: BP 114/67; PULSE 67; RESP 18; TEMP 98.4; O2SAT 96
[2024-11-04] MEDS ORDERED: GABAPENTIN300 MG PO (14:45)
[2024-11-04] MEDS ORDERED: DIFLUCAN100 MG PO (14:45)
[2024-11-04] MEDS ORDERED: NYSTATIN100000 UNI PO (14:45)
[2024-11-04] MEDS ORDERED: METOPROLOL TART50 MG PO (14:45)
[2024-11-04] MEDS ORDERED: PROTONIX40 MG/ML PO (14:45)
[2024-11-04] MEDS ORDERED: AMBIEN10 MG PO (14:45)
[2024-11-04 16:34] VITALS: BP 114/67; PULSE 67
[2024-11-04] MEDS: HEPARIN 500 UNITS/5ML MDV INJ ONE (16:34)
== END 2024-11-04 17:45 | disposition home or self-care (01) | DRG 369 ==
LOC: ER 13:08 → ERHOLD 17:00 → MED/SURG3 19:48
PROVIDERS: ADMIT Internal Medicine; ATTEND Internal Medicine
DX: B37.81 Candidal esophagitis (principal); K50.90 Crohn's disease, unspecified, without complications; E11.43 Type 2 diabetes mellitus with diabetic autonomic (poly)neuropathy; K31.84 Gastroparesis; F41.9 Anxiety disorder, unspecified; R00.2 Palpitations; E87.6 Hypokalemia; E83.42 Hypomagnesemia; D64.9 Anemia, unspecified; E11.42 Type 2 diabetes mellitus with diabetic polyneuropathy; G89.4 Chronic pain syndrome; E11.65 Type 2 diabetes mellitus with hyperglycemia; R07.89 Other chest pain; R10.9 Unspecified abdominal pain; I10 Essential (primary) hypertension; R00.0 Tachycardia, unspecified; K21.00 Gastro-esophageal reflux disease with esophagitis, without bleeding; G43.909 Migraine, unspecified, not intractable, without status migrainosus; R13.10 Dysphagia, unspecified; Z86.718 Personal history of other venous thrombosis and embolism; Z79.891 Long term (current) use of opiate analgesic; Z88.6 Allergy status to analgesic agent; Z88.8 Allergy status to other drugs, medicaments and biological substances
CPT/HCPCS: 36415; 71045; 71260; 74177; 80048; 80053; 80061; 80307; 81001; 82550; 83690; 83735; 83880; 84100; 84443; 84484; 85025; 85379; 85610; 85730; 93005; 93306; 99284; J1171; J2270; J2405; J2470; J3475; J3480; J7030; Q9967

== ENCOUNTER 2024-12-24 16:12 | Emergency (ER) | payer OTHER ==
[~2024-12-24] VITALS: Ht 165.1 cm; Wt 81.6 kg
[~2024-12-24 16:12] MED LIST changes: +NYSTATIN100000 UNI PO
[2024-12-24 19:14] LABS: AMPHETAMINES SCREEN,URINE NEGATIVE (NEGATIVE); CANNABINOIDS SCREEN,URINE POSITIVE (NEGATIVE); COCAINE SCREEN,URINE NEGATIVE (NEGATIVE); OPIATES SCREEN,URINE NEGATIVE (NEGATIVE)
[2024-12-24 19:15] LABS: METHADONE SCREEN, URINE NEGATIVE (NEGATIVE)
[2024-12-24 19:16] LABS: LEUKOCYTE ESTERASE ,URINE NEGATIVE (NEGATIVE); PROTEIN,URINE DIPSTICK NEGATIVE (NEGATIVE); URINE UROBILINOGEN 0.2 mg/dL (0.2 - 1)
[2024-12-24 19:25] LABS: WBC,URINE (MAN) 0-5 /HPF (0-5)
[2024-12-24 19:26] LABS: EPITHELIAL CELLS,URINE MODERATE /LPF
[2024-12-24] MEDS: SODIUM CHLORIDE 0.9% 1000ML 1,000 ML IV ONE (19:44)
[2024-12-24] MEDS: ONDANSETRON HCL INJ 2MG/ML 2ML 2 MG/ML VIAL IV STA (19:45)
[2024-12-24 19:47] LABS: EST GLOMERULAR FILTRATION RATE 87.0 ML/MIN (>=60)
[2024-12-24 19:47] LABS: BASOPHILS % 0.6 % (0.0-1.0); EOSINOPHILS % 0.2 % (0.0-6.0); LYMPHOCYTES % 33.6 % (18.0-39.1); MONOCYTES % 4.6 % (4.4-11.3); NEUTROPHILS % 60.7 % (38.7-80.0); RED CELL DISTRIBUTION WIDTH 14.1 % (11.7-14.4)
[2024-12-24] MEDS: SUCRALFATE 1 GM TAB PO STA (20:54)
[2024-12-24] MEDS: FAMOTIDINE 20 MG/2 ML VIAL IV STA (20:54)
[2024-12-24] MEDS: HALOPERIDOL LACTATE 5 MG/ML VIAL IV ONE (20:54)
[2024-12-24 21:30] VITALS: PULSE 88; RESP 15; TEMP 98.3
[2024-12-24] MEDS ORDERED: PHENERGAN SUPP25 MG PR (22:39)
[2024-12-24] MEDS: DICYCLOMINE HCL 20 MG/2 ML VIAL IM ONE (22:57)
[2024-12-24] MEDS: METOCLOPRAMIDE HCL 10 MG/2ML VIAL IV ONE (22:57)
[2024-12-24] MEDS: HEPARIN 500 UNITS/5ML MDV INJ ONE (23:10)
[2024-12-24 23:15] VITALS: BP 144/82; PULSE 89; RESP 19; TEMP 98.3; O2SAT 97
== END 2024-12-24 23:40 | disposition home or self-care (01) ==
LOC: ER 18:27
DX: R30.0 Dysuria (principal); R10.12 Left upper quadrant pain; R11.0 Nausea; I10 Essential (primary) hypertension; K21.9 Gastro-esophageal reflux disease without esophagitis; Z86.718 Personal history of other venous thrombosis and embolism; Z87.19 Personal history of other diseases of the digestive system
CPT/HCPCS: 36415; 80053; 80307; 81001; 83690; 85025; 87086; 87186; 93005; 99284; J0500; J1308; J1630; J2405; J2765; J7030